=== PATIENT | male | born 1935 | race Hispanic/Latino ===

== ENCOUNTER 2016-11-07 18:52 | Inpatient (IN) | payer MEDICARE ==
[2016-11-07] MEDS ORDERED: Sodium Chloride 0.9% 1,000 ML IV STA (19:37)
--- NOTE | 2016-11-07 19:40 | ED PDOC ---
Arrival/HPI - General Chief Complaint: Medical Clearance Time Seen by Provider: 11/07/16 19:37 Historian: Patient - History of Present Illness Narrative History of Present Illness (Text): 11/07/16 19:37 81 year old male sent to the emergency department by PMD for bloody stool, lightheadedness, and paleness for the past 2 days. Denies chest pain, shortness of breath, or dyspnea on exertion. Time/Duration: < week Symptom Onset: Gradual Symptom Course: Unchanged Associated Symptoms (Text): None Past Medical History - Provider Review Nursing Documentation Reviewed: Yes - Infectious Disease Hx of Infectious Diseases: None, C.diff, MRSA, ESL, VRE - Tetanus Immunization Tetanus Immunization: Unknown - Cardiac Hx Cardiac Disorders: Yes Hx Hypertension: Yes Hx Pacemaker: No Other/Comment: R BUNDLE BRANCH BLOCK - Pulmonary Hx Respiratory Disorders: Yes Hx Pneumonia: Yes - Neurological Hx Paralysis: No - HEENT Hx HEENT Disorder: No - Renal Hx Renal Disorder: No - Endocrine/Metabolic Hx Endocrine Disorders: Yes Hx Adrenal Cancer: No Hx Diabetes Insipidus: No Hx Diabetes Mellitus Type 1: No Hx Diabetes Mellitus Type 2: Yes Hx Hyperthyroidism: No Hx Hypothyroidism: No Hx Systemic Lupus Erythematosus: No - Hematological/Oncological Hx Blood Disorders: No Hx Blood Transfusions: No Hx Blood Transfusion Reaction: No - Integumentary Hx Dermatological Disorder: No - Musculoskeletal/Rheumatological Hx Musculoskeletal Disorders: No - Gastrointestinal Hx Gastrointestinal Disorders: Yes Hx Colostomy: No Hx Crohn's Disease: No Hx Diverticulitis: No Hx Gall Bladder Disease: No Hx Gastroesophageal Reflux: Yes Hx Ileostomy: No Hx Liver Failure: No Hx Pancreatitis: No HX Swallowing Problems: No - Genitourinary/Gynecological Hx Genitourinary Disorders: Yes Other/Comment: proteinuria - Psychiatric Hx Psychophysiologic Disorder: No Hx Emotional Abuse: No Hx Physical Abuse: No Hx Substance Use: No - Surgical History Hx Cardiac Catheterization: No Hx Coronary Stent: No - Anesthesia Hx Anesthesia: No Hx Anesthesia Reactions: (NEVER HAD) - Suicidal Assessment Feels Threatened In Home Enviroment: No Family/Social History - Physician Review Nursing Documentation Reviewed: Yes Family/Social History: Unknown Family HX Smoking Status: Heavy Smoker > 10 Cigarettes Daily Hx Alcohol Use: Yes (LIGHT BEER) Hx Substance Use: No Allergies/Home Meds Allergies/Adverse Reactions: Allergies No Known Allergies Allergy (Verified 11/07/16 19:00) Home Medications: Home Meds Medication Instructions Recorded Confirmed Aspirin [Ecotrin] 81 mg PO DAILY 11/07/16 11/07/16 Atenolol [Tenormin] 50 mg PO DAILY 11/07/16 11/07/16 GlipiZIDE [Glucotrol] 10 g PO BID 11/07/16 11/07/16 MetFORMIN [glucoPHAGE] 1,000 mg PO BID 11/07/16 11/07/16 Ranitidine HCl [Acid Staff Scientist] 150 mg PO DAILY 11/07/16 11/07/16 Simvastatin [Simvastatin] 20 mg PO HS 11/07/16 11/07/16 amLODIPine [Norvasc] 10 mg PO DAILY 11/07/16 11/07/16 Review of Systems - Physician Review All systems were reviewed & negative as marked: Yes Physical Exam - Physical Exam Narrative Physical Exam (Text): - Review of Systems Constitutional: Normal. absent: Fatigue, Weight Change, Fevers Eyes: Normal ENT: Normal Respiratory: Normal absent: SOB, KIRBY, Cough, Sputum Cardiovascular: Normal absent: Chest pain, Palpitations, Syncope Gastrointestinal: Bloody stool absent: Abdominal pain, Diarrhea, Nausea, Vomiting Genitourinary: Normal. absent: Dysuria, Frequency, Hematuria Musculoskeletal: Normal. absent: Arthralgias, Back Pain, Neck Pain Skin: Pale Neurological: Lightheadedness absent: Focal Weakness Endocrine: Normal Hemo/Lymphatic: Normal Psychiatric: Normal - Physical exam Patient appears age appropriate, speaking full sentences without difficulty - Systems Exam Head: Present: Atraumatic, Normocephalic Pupils: Present: PERRL Extraocular Muscles: Present: EOMI Conjunctiva: Present: Normal Mouth: Present: Moist Mucous Membranes Neck: Present: Normal Range of Motion. No: MIDLINE TENDERNESS, Paraspinal Tenderness Respiratory/Chest: Present: Clear to Auscultation, Good Air Exchange. No: Respiratory Distress, Accessory Muscle Use, Tachypneic Cardiovascular: Present: Regular Rate and Rhythm, Normal S1, S2, Peripheral Pulses Present. No: Murmurs Abdomen: Present: Normal Bowel Sounds, No: Tenderness, Peritoneal Signs, Rebound, Guarding, Distention Back: Present: Normal Inspection. No: Midline Tenderness, Paraspinal Tenderness Rectal: Guaiac positive stool, No external hemorrhoids. Chaperoned by Reilly, ED scribe Upper Extremity: Present: Normal Inspection. No: Cyanosis, Edema Lower Extremity: Present: Normal Inspection. No: Edema Neurological: Present: GCS=15, Speech Normal, cranial nerves II through XII fully intact with no cerebellar abnormality, neuro-sensory fully intact. No focal neurological deficits. Skin: Present: Warm, Dry, No: Rashes Lymphatic: Present: OX3, NI, NC Psychiatric: Present: Alert, Oriented x 3, Normal Insight, Normal Concentration Vital Signs Reviewed: Yes Vital Signs Temp Pulse Resp BP Pulse Ox 11/07/16 19:03 98.0 F 55 L 19 130/78 97 Temperature: Afebrile Blood Pressure: Normal Pulse: Bradycardic Respiratory Rate: Normal Appearance: Positive for: Non-Toxic, Comfortable Pain Distress: None Mental Status: Positive for: Alert and Oriented X 3 Medical Decision Making ED Course and Treatment: Impression: 81 year old male sent to the emergency department by PMD for bloody stool, lightheadedness, and paleness for the past 2 days. On physical exam, patient has guaiac positive stool. Plan: -- EKG, Chest X-ray -- Protonix -- IV fluids -- Labs -- Reassess and disposition Progress Notes: 11/07/16 21:25 Hb 9.9 pt hemodynamically stable pt and family agree with admission into the hospital dw Dr. Calzada, aware of and agrees with plan EKG shows sinus bradycardia, 50 bpm, atrial flutter. Interpreted by me. Chest xray interpreted by ED physician shows no pneumothorax, cardiomegaly, no infiltrates - Lab Interpretations Lab Results: 11/07/16 19:44 11/07/16 19:44 Lab Results 11/07/16 20:09: Blood Type Confirm O NEGATIVE 11/07/16 19:44: TIBC 311 11/07/16 19:44: Sodium 136, Potassium 4.4, Chloride 104, Carbon Dioxide 21, Anion Gap 15, BUN 25 H, Creatinine 1.2, Est GFR ( Amer) > 60, Est GFR ( Non-Af Amer) 58, Random Glucose 140 H, Calcium 9.7, Ferritin Pending, Total Bilirubin 0.5, AST 22, ALT 29, Alkaline Phosphatase 75, Lactate Dehydrogenase 315 L, Total Creatine Kinase 78, Troponin I < 0.01, Total Protein 6.3, Albumin 3.5, Globulin 2.7, Albumin/Globulin Ratio 1.3 11/07/16 19:44: PT 11.4, INR 1.06, APTT 25.7 11/07/16 19:44: WBC 10.8, RBC 3.05 L, Hgb 9.9 L, Hct 29.7 L, MCV 97.4, MCH 32.5 , MCHC 33.3, RDW 16.6 H, Plt Count 216, MPV 10.6, Gran % 58.1, Lymph % (Auto) 28.7, [place] % (Auto) 7.8 H, Eos % (Auto) 4.9, Baso % (Auto) 0.5, Gran # 6.30, Lymph # 3.1, [place] # 0.8 H, Eos # 0.5, Baso # 0.05 11/07/16 19:44: Blood Type O NEGATIVE, Antibody Screen Negative, BBK History Checked No verified bt - RAD Interpretation Radiology Orders: 11/07/16 19:38 CHEST PORTABLE [RAD] Stat - Medication Orders Current Medication Orders: Discontinued Medications Sodium Chloride (Sodium Chloride 0.9%) 1,000 mls @ 1,000 mls/hr IV .Q1H STA Stop: 11/07/16 20:36 Last Admin: 11/07/16 19:53 Dose: 1,000 mls/hr Pantoprazole Sodium (Protonix Inj) 40 mg IVP STAT STA Stop: 11/07/16 19:38 Last Admin: 11/07/16 19:53 Dose: 40 mg - [place] Statement The provider has reviewed the documentation as recorded by the Montana Rodriguez Provider Scribe Attestation: All medical record entries made by the [place] were at my direction and personally dictated by me. I have reviewed the chart and agree that the record accurately reflects my personal performance of the history, physical exam, medical decision making, and the department course for this patient. I have also personally directed, reviewed, and agree with the discharge instructions and disposition. Disposition/Present on Arrival - Present on Arrival Any Indicators Present on Arrival: No History of DVT/PE: No History of Uncontrolled Diabetes: Yes Urinary Catheter: No History of Decub. Ulcer: No History Surgical Site Infection Following: None - Disposition Have Diagnosis and Disposition been Completed?: Yes Diagnosis: Rectal bleeding Disposition: HOSPITALIZED Disposition Time: 21:27 Patient Plan: Admission Patient Problems: Current Active Problems Problem Status Onset Rectal bleeding Acute Condition: FAIR Referrals: Andrew Foster MD [Primary Care Provider] - Follow up with primary
[2016-11-07 19:50] LABS: ADD MANUAL DIFF? NO
[2016-11-07 20:02] LABS: BASO # 0.05 K/mm3 (0.0-2.0); BASO % 0.5 % (0.0-3.0); EOS # 0.5 (0.0-0.7); EOS % 4.9 % (1.5-5.0); GRAN % 58.1 % (50.0-68.0); HEMATOCRIT 29.7 % (42.0-52.0); LYMPH # 3.1 (1.2-3.4); LYMPH % 28.7 % (22.0-35.0); MEAN CELL VOLUME 97.4 fL (80.0-105.0); MEAN CORPUSCULAR HEMOGLOBIN 32.5 pg (25.0-35.0); MEAN CORPUSCULAR HGB CONC 33.3 g/dl (31.0-37.0); MEAN PLATELET VOLUME 10.6 fl (7.0-11.0); MONO # 0.8 (0.1-0.6); MONO % 7.8 % (1.0-6.0); PLATELET COUNT 216 10^3/uL (120.0-450.0); RED CELL DISTRIBUTION WIDTH 16.6 % (11.5-14.5); WHITE BLOOD COUNT 10.8 10^3/ul (4.5-11.0)
[2016-11-07 20:07] LABS: ALB/GLOB RATIO 1.3 (1.1-1.8); ALKALINE PHOSPHATASE 75 U/L (38-133); ALT/SGPT 29 U/L (7-56); AST/SGOT 22 U/L (15-59); BILIRUBIN,TOTAL 0.5 mg/dL (0.2-1.3); BLOOD UREA NITROGEN 25 mg/dL (7-21); CALCIUM 9.7 mg/dL (8.4-10.5); CARBON DIOXIDE 21 mmol/L (21-33); CHLORIDE 104 mmol/L (98-107); GFR AFRICAN-AMERICAN > 60; GLUCOSE,RANDOM 140 mg/dL (70-110); INR 1.06 (0.93-1.08); PARTIAL THROMBOPLASTIN TIME 25.7 Seconds (23.7-30.8); POTASSIUM 4.4 mmol/L (3.6-5.0); SODIUM 136 mmol/L (132-148); TOTAL PROTEIN 6.3 g/dL (5.8-8.3)
[2016-11-07 20:28] LABS: TROPONIN I < 0.01 ng/mL
--- NOTE | 2016-11-08 00:24 | CP.PCM.PN ---
Subjective - Date & Time of Evaluation Date of Evaluation: 11/08/16 Time of Evaluation: 00:24 - Subjective Subjective: S:Nurse Aron calls and tells that patient's rhythm was sinus bradycardia in the ER, it is atrial fibrillation on monitor now.Rate 67/min going to 41. He was seen at bedside.Has no complaints now .Denies chest pain, sob, nausea , sweating, palpitations. Denies ever having irregular heart rhythm. ROS: Neg except as mentioned above. Medical record was reviewed. O: Last Vital Signs 3 Temp 98.0 F 11/07/16 19:03 Pulse 76 11/07/16 21:43 Resp 18 11/07/16 21:43 BP 138/85 11/07/16 21:43 Pulse Ox 97 11/07/16 21:43 Awake, alert, not in distress. Monitor:Atrial fibrillation rate 67/min. LUNGS:Normal breathing pattern. NEURO: Speech normal. A:Atrial fibrillation-New onset? P:Observation. EKG. TSH. Cardiology consultation at discretion of primary physician. Objective - Vital Signs/Intake and Output Vital Signs (last 24 hours): Temp Pulse Resp BP Pulse Ox 98.0 F 76 18 138/85 97 11/07/16 19:03 11/07/16 21:43 11/07/16 21:43 11/07/16 21:43 11/07/16 21:43 - Medications Medications: Current Medications Amlodipine Besylate (Norvasc) 10 mg PO DAILY AISHA Atenolol (Tenormin) 50 mg PO DAILY AISHA Insulin Human Regular (Humulin R Low) 0 units SC ACHS AISHA PRN Reason: Protocol - Labs Labs: PT 11.4 Seconds (9.9-11.8) 11/07/16 19:44 INR 1.06 (0.93-1.08) 11/07/16 19:44 APTT 25.7 Seconds (23.7-30.8) 11/07/16 19:44
[2016-11-08 06:25] LABS: ADD MANUAL DIFF? NO
[2016-11-08 06:30] LABS: BASO # 0.03 K/mm3 (0.0-2.0); BASO % 0.4 % (0.0-3.0); EOS # 0.4 (0.0-0.7); EOS % 5.5 % (1.5-5.0); GRAN # 4.34 (1.4-6.5); GRAN % 56.9 % (50.0-68.0); HEMATOCRIT 26.1 % (42.0-52.0); LYMPH # 2.2 (1.2-3.4); LYMPH % 29.2 % (22.0-35.0); MEAN CELL VOLUME 95.3 fL (80.0-105.0); MEAN CORPUSCULAR HGB CONC 32.6 g/dl (31.0-37.0); MEAN PLATELET VOLUME 10.6 fl (7.0-11.0); MONO # 0.6 (0.1-0.6); PLATELET COUNT 190 10^3/uL (120.0-450.0); RED CELL DISTRIBUTION WIDTH 16.5 % (11.5-14.5); WHITE BLOOD COUNT 7.6 10^3/ul (4.5-11.0)
[2016-11-08 06:52] LABS: ALB/GLOB RATIO 1.2 (1.1-1.8); ALKALINE PHOSPHATASE 66 U/L (38-133); ALT/SGPT 33 U/L (7-56); AST/SGOT 17 U/L (15-59); BILIRUBIN,TOTAL 0.4 mg/dL (0.2-1.3); BLOOD UREA NITROGEN 19 mg/dL (7-21); CALCIUM 9.2 mg/dL (8.4-10.5); CARBON DIOXIDE 24 mmol/L (21-33); CHLORIDE 108 mmol/L (98-107); GFR AFRICAN-AMERICAN > 60; GLUCOSE,RANDOM 134 mg/dL (70-110); MAGNESIUM 1.9 mg/dL (1.7-2.2); POTASSIUM 4.7 mmol/L (3.6-5.0); SODIUM 137 mmol/L (132-148); TOTAL PROTEIN 5.4 g/dL (5.8-8.3)
[2016-11-08 06:58] LABS: IRON 36 ug/dL (45-180)
[2016-11-08 07:00] LABS: TROPONIN I < 0.01 ng/mL
[2016-11-08] MEDS: Insulin Reg-LOW-Coverage SC SCH ×4 (08:11→21:41)
--- NOTE | 2016-11-08 09:50 | RAD ---
HISTORY: cough COMPARISON: 09/04/2015 FINDINGS: LUNGS: No active pulmonary disease. PLEURA: No significant pleural effusion identified, no pneumothorax apparent. CARDIOVASCULAR: Mild cardiomegaly OSSEOUS STRUCTURES: No significant abnormalities. VISUALIZED UPPER ABDOMEN: Normal. OTHER FINDINGS: None. IMPRESSION: No active disease.
--- NOTE | 2016-11-08 10:25 | HP ---
CHIEF COMPLAINT AND HISTORY OF PRESENT ILLNESS: This is an 81-year-old male who is coming into the [facility] because of bloody stools and lightheadedness. The patient was found to have heme positive st ools in the Emergency Room and was admitted for further evaluation. The patient denies any abdominal pain, no back pain, no dysuria or frequency, no nocturia, no weakness in the arms or the legs. No d ysarthria or dysphagia. All other review of symptoms are within normal limits except as mentioned. He also had atrial fibrillation on telemetry overnight. REVIEW OF SYSTEMS: All other review of symptoms are within normal limits. ALLERGIES: No known drug allergies. HOME MEDICATIONS: Aspirin, atenolol, glipizide, metformin, ranitidine, simvastatin, amlodipine. SOCIAL HISTORY: The patient is a smoker. He smokes more than 10 cigarettes a day. Drinks alcohol s ocially. He denies any substance abuse. He worked as a teacher at [employer]. FAMILY HISTORY: Noncontributory. PAST MEDICAL HISTORY: Diabetes type 2, hypertension, dyslipidemia. PHYSICAL EXAMINATION: VITAL SIGNS: Temperature is 97.7, pulse of 54, blood pressure 122/59, respirations 20, O2 saturation 96%. Height is 6 feet. GENERAL: Patient lying in bed, flat, and in no apparent distress. HEAD AND NECK EXAM: Atraumatic, normocephalic. Conjunctivae are pink. Throat clear and mouth with moist mucosa. Oropharynx benign. EYES: Extraocular movements are intact. PERRLA. NECK: Supple. No JVD, thyromegaly, or adenopathy. No bruits. HEART: S1 and S2 regular rate and rhythm. No murmurs, rubs, or gallops. LUNGS: Clear to auscultation bilaterally. No wheezing rales or rhonchi appreciated. No retractions on exam. ABDOMEN: Soft, nontender, nondistended. Bowel sounds are positive in all quadrants. No rebound. No hepatosplenomegaly. EXTREMITIES: No cyanosis, clubbing, or edema. NEURO: No facial asymmetry, tongue is midline, no uvula deviation. Power is 5/5 in upper extremity and 5/5 in lower extremity. Sensation is normal in upper extremity and lower extremity. PSYCH: Awake, alert, oriented x3. No anxiety or depression symptoms. Good insight. Normal affect . : No CVA tenderness VASCULAR: 2+ pulses in carotid and pedal pulses. SKIN: No erythema or abnormal nodules noted. SPINE: Normal curvature. LYMPHADENOPATHY: No anterior cervical or posterior cervical adenopathy. No inguinal adenopathy. LABORATORY DATA: White count of 7.6, hemoglobin is 8.5, yesterday was 9.9, platelet count is 190. I NR is 1.06. Sodium is 137, potassium 4.7. Iron saturation is 13%. Chest x-ray done shows no infiltrates. An EKG done on admission shows a heart rate of 49, there is atrial flutter. ASSESSMENT: 1. Right gastrointestinal bleed. 2. Atrial flutter. 3. Diabetes type 2. 4. Hypertension. 5. Dyslipidemia. PLAN: The patient has a hemoglobin that is decreasing. The patient's baseline hemoglobin from about a year ago was 15 and is 9.9 and again is 8.5 this morning. I will get GI evaluation. He is on aml odipine for his hypertension and this will be continued. He is on atenolol. This will be continued as well. I will hold his aspirin. He is on metformin and glipizide. That will be on hold. I will place him on insulin sliding scale. The patient will be placed on a liquid diet. We will repeat his CBC tomorrow morning. He will also be seen by Dr. Coronado and I spoke to him regarding the atrial fl utter and fib. He cannot be placed on anticoagulation at this point because of his bleeding. Brian Calzada MD cc: [id number] TT: 11/08/2016 10:24:33 tn
--- NOTE | 2016-11-08 11:20 | CON ---
DATE: 11/08/2016 INDICATIONS: Atrial fibrillation, new onset. HISTORY OF PRESENT ILLNESS: This is an 81-year-old man who presented to the Emergency Room with bright red blood per rectum, lightheadedness and not feeling well. EKG showed atrial fibrillation. He was admitted to telemetry. Cardiac consultation and GI consultations were ordered. This morning, he is resting comfortably in bed. Monitor shows atrial fibrillation with a moderate ventricular response. He denies chest pain, shortness of breath, orthopnea, PND , syncope, presyncope, lightheadedness, dizziness, vertigo, palpitations, edema , claudication, fever, chills, cough, sputum production, hemoptysis, abdominal pain, nausea, vomiting, diarrhea, constipation. PAST MEDICAL HISTORY: Notable for diabetes, hypertension, hyperlipidemia, pneumonia. He is anemic. An EKG in August shows sinus rhythm. The time of onset for the atrial fibrillation is not clear. There is no history of rheumatic fever, myocardial infarction, angina, congestive heart failure, arrhythmia, stroke, TIA or gout. MEDICATIONS: At the time of admission include aspirin, atenolol, glipizide, metformin, Zantac, simvastatin, Norvasc. ALLERGIES: There are no known medication allergies. SOCIAL HISTORY: He lives at home. He is ambulatory. He does not smoke cigarettes. He does not drink alcohol. REVIEW OF SYSTEMS: A 10-point review of systems is unremarkable. He has noted rectal bleeding in the past due to hemorrhoids, but this episode was more severe and different and not associated with hemorrhoidal pain. PHYSICAL EXAMINATION: GENERAL: Well-developed male sitting on bed on telemetry in no acute distress. VITAL SIGNS: Atrial fibrillation, ventricular rate 54-76 beats per minute. He is afebrile. Blood pressure 163/54, respirations 18-20, O2 sat 97%. HEENT: Reveals no neck vein distention, thyromegaly, or carotid bruits. Mucous membranes are moist. Conjunctivae pale. NECK: Supple. LUNGS: Lung montalvo clear. HEART: Revealed an irregular rhythm, normal first and second heart sounds. PMI not palpable. ABDOMEN: Soft, bowel sounds present. No mass, organomegaly, tenderness, rebound, guarding, CVA tenderness. No palpable abdominal aortic aneurysm. EXTREMITIES: Revealed no cyanosis, clubbing, or edema. NEUROLOGIC: He was awake, alert and oriented. SKIN: Warm and dry. No rash or cellulitis. PSYCHIATRIC: Normal as to mood and affect. LABORATORY AND IMAGING: EKG reveals atrial flutter. Chest x-ray is a portable study. It is not yet interpreted. I do not see evidence of congestive heart failure, infiltrate or effusion. Hemoglobin initially 9.9, repeat 8.5. Hematocrit initially 27.7, repeat 26.1, white count normal, platelet count normal. PT, INR, PTT normal. Electrolytes, BUN, creatinine, blood sugar unremarkable. LFTs unremarkable. CK 78, troponin is negative x 2. TSH is normal. Iron level is low, percent saturation is low. IMPRESSION: The patient is an 81-year-old man with rectal bleeding, was found to have atrial fibrillation which is new compared to an EKG in August. He does not have cardiac symptoms including chest pain, shortness of breath and palpitations. Troponins are negative. EKG is unremarkable except for the atrial fibrillation without evidence of ischemia. At this time, he is on telemetry. I would continue his atenolol, amlodipine, and Lipitor as a substitute for simvastatin. Aspirin is being held. Anticoagulation will be considered at a later date once the cause for his GI bleeding is ascertained. He is undergoing a GI evaluation by Dr. De Jesus. H and H should be monitored. We will check stool for occult blood. I will order an echocardiogram on an outpatient basis. We will arrange a nuclear stress test as well. I will follow along with you. I will make additional recommendations based on his clinical course. Fantasma Coronado MD cc: [id number] TT: 11/08/2016 11:19:44 Confirmation # [id number] Dictation # [id number] jn GORAN
[2016-11-08] MEDS: Pantoprazole 40 mg EC Tab PO SCH (11:44)
--- NOTE | 2016-11-08 14:48 | CARD ---
APPROVED REPORT EXAM: Two-dimensional and M-mode echocardiogram with Doppler and color Doppler. INDICATION Atrial Fibrillation 2D DIMENSIONS Left Atrium (2D)3.8 (1.6-4.0cm)IVSd1.1 (0.7-1.1cm) LVDd5.3 (3.9-5.9cm)PWd1.3 (0.7-1.1cm) LVDs3.6 (2.5-4.0cm)FS (%) 32.4 % LVEF (%)60.4 (>50%) M-Mode DIMENSIONS Aortic Root3.00 (2.2-3.7cm)Aortic Cusp Exc.1.30 (1.5-2.0cm) Aortic Valve AoV Peak [id number]/Roxy Peak GR.10mmHg Mitral Valve E/A ratio0.0 TDI E/Lateral E'0.0E/Medial E'0.0 Tricuspid Valve TR Peak [id number] Peak Gr.22mmHg [id number] LEFT VENTRICLE The left ventricle is normal size. There is mild concentric left ventricular hypertrophy. The left ventricular function is normal. The left ventricular ejection fraction is within the normal range. There is normal LV segmental wall motion. RIGHT VENTRICLE The right ventricle is normal size. The right ventricular systolic function is normal. ATRIA The left atrium size is normal. The right atrium size is normal. The interatrial septum is intact with no evidence for an atrial septal defect. AORTIC VALVE The aortic valve is normal in structure. No aortic regurgitation is present. There is no aortic valvular stenosis. MITRAL VALVE The mitral valve is normal in structure. There is no mitral valve regurgitation noted. TRICUSPID VALVE The tricuspid valve is normal in structure. There is no tricuspid valve regurgitation noted. GREAT VESSELS The aortic root is normal in size. The IVC is normal in size and collapses >50% with inspiration. PERICARDIAL EFFUSION There is no pleural effusion. There is no pericardial effusion. <Conclusion> Normal chamber size. Normal LV systolic function. Mild concentric LVH. No valvular abnormalities noted.
[2016-11-08 15:24] LABS: HEMATOCRIT 27.1 % (42.0-52.0)
--- NOTE | 2016-11-08 15:37 | CON ---
DATE: 11/08/2016 Seen and examined at the bedside earlier today. The chart was reviewed. REQUEST FOR CONSULT: GI bleed. HISTORY OF PRESENT ILLNESS: This is an 81-year-old male with a past medical history of diabetes, hyp ertension, and dyslipidemia complaining of bloody stools and lightheadedness and came to the Emergenc y Room for further evaluation. Two days ago, the patient states that he had an episode of diarrhea t hat was bloody and had another episode of bloody stool another day. He did complain of feeling light headedness. Denies any nausea, vomiting, no abdominal pain. Denies any shortness of breath or chest pain. No complaints of any weight loss or symptoms of dyspepsia. He never had an endoscopy or colo noscopy. While he was admitted, he was found to be in atrial fibrillation on telemetry. Denies any chest pain. The patient denies any use of NSAIDs. He only takes a baby aspirin daily. PAST MEDICAL HISTORY: As stated above, hypertension, diabetes mellitus type 2 and dyslipidemia. PAST SURGICAL HISTORY: The patient denies any cardiac interventions or any abdominal surgery. FAMILY HISTORY: Noncontributory at this time. SOCIAL HISTORY: The patient was a former smoker. He said he quit about 10-15 years ago and patient reports that he drinks 4 cans of beer daily. MEDICATIONS: He is on aspirin, metformin, glipizide, atenolol, ranitidine, simvastatin and amlodipin e. ALLERGIES: No known drug allergies. REVIEW OF SYSTEMS: Systems were reviewed with positive findings, see HPI. VITAL SIGNS: Temperature is 97.7, blood pressure 132/76, pulse 78, respirations 20, 96 on room air. LABORATORY DATA: WBC 7.6, H and H is 8.5 and 26.1, platelets is 190. PT on admission is 11.4, INR i s 1.06, PTT is 25.7. Sodium is 137, K 4.7, BUN 19, creatinine is 1.2, magnesium is 1.9. Iron studie s done, iron is 36, TIBC is 278, percent saturation is 13, transferrin level is okay at 234.11. DIAGNOSTICS: He had a chest x-ray that was negative for pulmonary disease. No pleural effusion, no pneumothorax, mild cardiomegaly. PHYSICAL EXAMINATION: HEENT: Sclerae anicteric. NECK: Supple. CARDIAC: S1, S2. LUNGS: Decreased breath sounds at the bases, but good air entry. No rales or wheeze. ABDOMEN: With bowel sounds, soft. No tenderness. No rebound, guarding, or organomegaly. EXTREMITIES: Positive pedal pulses, no edema. NEUROLOGIC: The patient is awake, alert, and oriented x 3. RECTAL: Negative for mass. No blood is noted. ASSESSMENT: This is an 81-year-old male with a past medical history of diabetes type 2, hypertension , and dyslipidemia who came in with complaints of bleeding per rectum. Rule out any angiodysplasia, malignancy. The patient was found to be in atrial fibrillation. Other comorbidities as stated above . PLAN: The patient also had iron studies done and it looks like he is iron deficient. Our plan is currently his aspirin is on hold. I discussed with the patient that he would benefit from endoscopic evaluati on, EGD, colonoscopy in view of bleeding. The patient is also being evaluated by cardiology for atri al fibrillation/flutter. He is having cardiac workup. Continue to monitor his H and H. We will cont inue Protonix 40 daily. The patient can stay on clear liquid diet. Thank you for this consult and for allowing us to participate in your patient's care. We will make f elyse recommendations based upon patient's clinical course. The patient was seen and case discussed with Dr. De Jesus. We will also check patient's B12 level. Yi VALDES cc: [id number] TT: 11/08/2016 15:37:47 Confirmation # [id number] Dictation # [id number] pete
[2016-11-09] MEDS: Pantoprazole 40 mg EC Tab PO SCH (05:15)
[2016-11-09 07:53] LABS: HEMATOCRIT 26.4 % (42.0-52.0); MEAN CORPUSCULAR HGB CONC 33.3 g/dl (31.0-37.0); MEAN PLATELET VOLUME 10.7 fl (7.0-11.0); RED CELL DISTRIBUTION WIDTH 16.2 % (11.5-14.5)
[2016-11-09 08:07] LABS: ALB/GLOB RATIO 1.2 (1.1-1.8); ALKALINE PHOSPHATASE 69 U/L (38-133); ALT/SGPT 34 U/L (7-56); AST/SGOT 24 U/L (15-59); BILIRUBIN,TOTAL 0.6 mg/dL (0.2-1.3); BLOOD UREA NITROGEN 13 mg/dL (7-21); CALCIUM 9.5 mg/dL (8.4-10.5); CARBON DIOXIDE 26 mmol/L (21-33); CHLORIDE 107 mmol/L (95-110); GFR AFRICAN-AMERICAN > 60; GLUCOSE,RANDOM 171 mg/dL (70-110); SODIUM 138 mmol/L (132-148); TOTAL PROTEIN 5.6 g/dL (5.8-8.3)
[2016-11-09] MEDS: Insulin Reg-LOW-Coverage SC SCH ×4 (08:39→22:00)
[2016-11-09] MEDS: Sodium Chloride 0.45% 1,000 ML IV SCH (10:55)
[2016-11-09 11:22] LABS: ADD MANUAL DIFF? NO
[2016-11-09 11:28] LABS: CHOLESTEROL 115 mg/dL (130-200)
[2016-11-09 11:31] LABS: BASO # 0.04 K/mm3 (0.0-2.0); BASO % 0.5 % (0.0-3.0); EOS # 0.3 (0.0-0.7); EOS % 3.1 % (1.5-5.0); GRAN # 5.15 (1.4-6.5); GRAN % 60.8 % (50.0-68.0); HEMATOCRIT 24.9 % (42.0-52.0); LYMPH # 2.4 (1.2-3.4); LYMPH % 28.7 % (22.0-35.0); MEAN CELL VOLUME 96.1 fL (80.0-105.0); MEAN CORPUSCULAR HEMOGLOBIN 32.4 pg (25.0-35.0); MEAN CORPUSCULAR HGB CONC 33.7 g/dl (31.0-37.0); MEAN PLATELET VOLUME 10.2 fl (7.0-11.0); MONO # 0.6 (0.1-0.6); MONO % 6.9 % (1.0-6.0); PLATELET COUNT 209 10^3/uL (120.0-450.0); RED CELL DISTRIBUTION WIDTH 16.3 % (11.5-14.5); WHITE BLOOD COUNT 8.5 10^3/ul (4.5-11.0)
--- NOTE | 2016-11-09 12:23 | PN ---
DATE: 11/09/2016 SUBJECTIVE: The patient is an 81-year-old, seen and examined, lying in bed, reading a newspaper. He did have bloody bowel movement this morning, but not prachi blood. Denies any abdominal pain. No hi story of nausea. No chest pain, no palpitation. PHYSICAL EXAMINATION: VITAL SIGNS: The patient is afebrile, pulse 69, respirations 20, blood pressure 160/69. LUNGS: Bilateral fair airflow, no rhonchi or crackle. HEART: S1, S2 audible. ABDOMEN: Soft, nontender, no rebound, no guarding. NEUROLOGIC: The patient is awake and alert, able to communicate, moves all extremities. LABORATORY EXAMINATION: WBC is 9.0, hemoglobin 8.8, hematocrit 26.4, platelet of 214. Chemistry: S odium 138, potassium 5.0, chloride 107, CO2 26, BUN 13, creatinine 1.0, blood sugar of 229. ASSESSMENT: 1. Lower gastrointestinal bleed. Holding his hemoglobin. 2. History of hypertension. 3. Anemia. 4. Noninsulin dependent diabetes. 5. Hyperlipidemia. PLAN: At this point, the patient is on clear liquids. Will start him on low dose IV fluids. Contin ue him on liquid diet. He is on Protonix. Monitor his blood sugar. Plan for colonoscopy on Friday if he does not start bleeding profusely. Shweta Merino MD cc: [phone] TT: 11/09/2016 12:22:37 Confirmation # [id number] Dictation # [id number] nena
--- NOTE | 2016-11-09 14:42 | PN ---
DATE: 11/09/2016 SUBJECTIVE: The patient is seen sitting in bed on telemetry. He is currently comfortable. He denies any dyspnea. He remains in atrial fibrillation. He continues to have some blood in his stool and diarrheal stools. CURRENT MEDICATIONS: Include insulin coverage, Norvasc 10 mg daily, Protonix 40 mg daily and Tenormin 50 mg daily. OBJECTIVE: GENERAL: He is an elderly man who appears comfortable at rest. VITAL SIGNS: Blood pressure is 160/70 with pulse of 70 in atrial fibrillation, respirations are 16. He is afebrile. HEENT: No JVD. CHEST: A few scattered rhonchi. HEART: PMI displaced laterally with an irregularly irregular rhythm. ABDOMEN: Soft, nontender, normoactive bowel sounds. EXTREMITIES: No edema. DIAGNOSTIC DATA: Potassium 5.0, BUN and creatinine are 13 and 1.0. Hemoglobin and hematocrit 8.8 and 26.4 with prior result being 9.1 and 27.1. White count 9.0, platelet count 214,000. IMPRESSION: 1. Recently diagnosed atrial fibrillation with controlled rate. Obviously not a candidate for anticoagulation given his active gastrointestinal bleeding. 2. Gastrointestinal bleed. Workup in progress. 3. History of hypertension. On diagnostic study, echocardiogram revealed normal left ventricular size and function with mild concentric left ventricular hypertrophy, no significant valvular abnormalities were seen. RECOMMENDATIONS: Rate control therapy at the present time is advisable. Once his GI bleeding issues have been addressed, consideration as to suitability and timing of anticoagulation can be discussed; however, obviously this is contraindicated at the present time. We will continue to follow and make further recommendations as appropriate. Christiano Edwards MD cc: [id number] TT: 11/09/2016 14:41:02 Confirmation # [id number] Dictation # [id number] nena ZIMMER
--- NOTE | 2016-11-09 15:53 | CARD ---
APPROVED REPORT EKG Measurement Heart [id number] <Conclusion> Atrial flutter with variable AV block Abnormal ECG
--- NOTE | 2016-11-09 16:18 | CARD ---
APPROVED REPORT EKG Measurement Heart [id number] <Conclusion> Atrial flutter with variable AV block Nonspecific ST abnormality Abnormal ECG
--- NOTE | 2016-11-09 18:34 | PN ---
DATE: 11/09/2016 SUBJECTIVE: This patient was seen and evaluated earlier. The patient's family was at bedside. The patient had another episode of bright red blood per rectum. The patient had a bleeding scan done. T he bleeding scan was reported as no active bleeding site noticed, however, there is penile uptake ___ _ suspected penile activity can obscure small active rectal bleeding. PHYSICAL EXAMINATION: VITAL SIGNS: Temperature is 97.4, pulse of 56, blood pressure 138/57, respirations 18. HEENT: Atraumatic, anicteric. NECK: Supple. HEART: S1, S2 heard. LUNGS: Bilateral air entry present. ABDOMEN: Soft. No tenderness. EXTREMITIES: No edema. LABORATORY DATA: Hemoglobin 8.8, repeat one is 8.4. BUN 13, creatinine 1.0. IMPRESSION: 1. This is an 81-year-old patient admitted with recurrent episodes of bright red blood per rectum. Recent bleeding scan was nondiagnostic. There has been penile activity, possible penile activity ove rshadowing the ____, a small rectal bleeding was also noted. 2. Atrial fibrillation, controlled rate. Is being followed by the cardiology. In view of the activ e bleeding, no anticoagulation is considered. 3. History of hypertension. 4. History of coronary artery disease. RECOMMENDATIONS: 1. Followup of the hemoglobin and hematocrit. 2. Will continue to keep the patient on clear liquid diet. 3. Will follow up the heme, transfuse 2 units of packed RBC today. 4. We will consider preparing the patient for colonoscopy and endoscopy. We will start the preparat ion with Donis tomorrow for a colonoscopy on Friday. Thank you very much for allowing us to participate in the care of the patient. Marilu De Jesus MD cc: [phone] TT: 11/09/2016 18:33:37 Confirmation # [id number] Dictation # [id number] jutsice
[2016-11-09 19:58] LABS: ADD MANUAL DIFF? NO
[2016-11-09 20:04] LABS: BASO # 0.03 K/mm3 (0.0-2.0); BASO % 0.3 % (0.0-3.0); EOS # 0.4 (0.0-0.7); EOS % 4.4 % (1.5-5.0); GRAN # 5.06 (1.4-6.5); GRAN % 53.2 % (50.0-68.0); LYMPH # 3.2 (1.2-3.4); MEAN CELL VOLUME 95.4 fL (80.0-105.0); MEAN CORPUSCULAR HEMOGLOBIN 32.1 pg (25.0-35.0); MEAN CORPUSCULAR HGB CONC 33.6 g/dl (31.0-37.0); MEAN PLATELET VOLUME 10.2 fl (7.0-11.0); MONO # 0.8 (0.1-0.6); MONO % 8.1 % (1.0-6.0); PLATELET COUNT 205 10^3/uL (120.0-450.0); RED CELL DISTRIBUTION WIDTH 16.1 % (11.5-14.5); WHITE BLOOD COUNT 9.5 10^3/ul (4.5-11.0)
[2016-11-09 20:13] LABS: HEMATOCRIT 22.9 % (42.0-52.0)
[2016-11-10] MEDS: Sodium Chloride 0.45% 1,000 ML IV SCH (06:04)
[2016-11-10] MEDS: Pantoprazole 40 mg EC Tab PO SCH (06:07)
[2016-11-10 07:49] LABS: ADD MANUAL DIFF? NO
[2016-11-10 08:22] LABS: ALB/GLOB RATIO 1.2 (1.1-1.8); ALKALINE PHOSPHATASE 61 U/L (38-133); ALT/SGPT 38 U/L (7-56); AST/SGOT 24 U/L (15-59); BILIRUBIN,TOTAL 0.6 mg/dL (0.2-1.3); BLOOD UREA NITROGEN 11 mg/dL (7-21); CALCIUM 8.8 mg/dL (8.4-10.5); CARBON DIOXIDE 25 mmol/L (21-33); CHLORIDE 106 mmol/L (95-110); GFR AFRICAN-AMERICAN > 60; GLUCOSE,RANDOM 148 mg/dL (70-110); MAGNESIUM 1.6 mg/dL (1.7-2.2); POTASSIUM 4.6 mmol/L (3.6-5.0); SODIUM 137 mmol/L (132-148); TOTAL PROTEIN 5.3 g/dL (5.8-8.3)
[2016-11-10] MEDS: Insulin Reg-LOW-Coverage SC SCH ×4 (08:41→22:41)
[2016-11-10] MEDS ORDERED: D5W IV ONE (08:43)
[2016-11-10] MEDS ORDERED: MAGNESIUM SULFATE IV ONE (08:43)
[2016-11-10 09:21] LABS: BASO # 0.06 K/mm3 (0.0-2.0); BASO % 0.7 % (0.0-3.0); EOS # 0.6 (0.0-0.7); EOS % 6.7 % (1.5-5.0); GRAN # 4.31 (1.4-6.5); GRAN % 51.6 % (50.0-68.0); HEMATOCRIT 27.6 % (42.0-52.0); LYMPH # 2.7 (1.2-3.4); LYMPH % 32.1 % (22.0-35.0); MEAN CELL VOLUME 96.8 fL (80.0-105.0); MEAN CORPUSCULAR HEMOGLOBIN 33.7 pg (25.0-35.0); MEAN CORPUSCULAR HGB CONC 34.8 g/dl (31.0-37.0); MEAN PLATELET VOLUME 10.7 fl (7.0-11.0); MONO # 0.7 (0.1-0.6); MONO % 8.9 % (1.0-6.0); PLATELET COUNT 196 10^3/uL (120.0-450.0); RED CELL DISTRIBUTION WIDTH 17.4 % (11.5-14.5); WHITE BLOOD COUNT 8.4 10^3/ul (4.5-11.0)
--- NOTE | 2016-11-10 11:56 | PN ---
DATE: 11/10/2016 SUBJECTIVE: The patient is an 81-year-old, seen and examined, lying in bed. He states, "I'm frustra danii, don't know why I'm bleeding." He was given blood transfusion since he dropped hemoglobin. No a bdominal pain on clear liquid diet. PHYSICAL EXAMINATION: VITAL SIGNS: He is afebrile, pulse 64, respirations 17, blood pressure 139/57. LUNGS: Bilateral fair airflow, no rhonchi or crackle. HEART: S1, S2 audible. ABDOMEN: Soft, nontender, no rebound, no guarding. NEUROLOGIC: The patient is awake and alert, communicative. LABORATORY: Yesterday, his followup hemoglobin was 7.7 to 22.9. He received 2 blood transfusions an d a recent hemoglobin is 9.6 and 27.6, platelet 196. Chemistry: Blood sugar is 176. Sodium 1 37, potassium 4.6, chloride 106, CO2 25, BUN 11, creatinine 1.0, magnesium is 1.6. ASSESSMENT AND PLAN: 1. Lower gastrointestinal bleed. Bleeding scan is pending. 2. Blood loss anemia, status post blood transfusion. 3. History of hypertension. 4. Noninsulin dependent diabetes. 5. Hyperlipidemia. 6. History of coronary artery disease. PLAN: Currently, the patient is on IV fluid. For his low magnesium, he will be given 1 gram of magn esium sulfate. He is on Norvasc 10 mg daily. We will continue him on Protonix and will follow up hi s CBC and CMP. He will stay on liquid diet. He is scheduled to have colonoscopy done tomorrow. Shweta Merino MD cc: [phone] TT: 11/10/2016 11:56:15 Confirmation # [id number] Dictation # [id number] pete
[2016-11-10 13:24] LABS: ADD MANUAL DIFF? NO
[2016-11-10 13:41] LABS: BASO # 0.05 K/mm3 (0.0-2.0); BASO % 0.5 % (0.0-3.0); EOS # 0.6 (0.0-0.7); EOS % 5.3 % (1.5-5.0); GRAN # 6.98 (1.4-6.5); GRAN % 63.5 % (50.0-68.0); HEMATOCRIT 31.3 % (42.0-52.0); LYMPH # 2.7 (1.2-3.4); MEAN CELL VOLUME 95.1 fL (80.0-105.0); MEAN CORPUSCULAR HEMOGLOBIN 32.2 pg (25.0-35.0); MEAN CORPUSCULAR HGB CONC 33.9 g/dl (31.0-37.0); MONO # 0.6 (0.1-0.6); MONO % 5.7 % (1.0-6.0); PLATELET COUNT 221 10^3/uL (120.0-450.0); RED CELL DISTRIBUTION WIDTH 17.5 % (11.5-14.5)
--- NOTE | 2016-11-10 14:13 | PN ---
DATE: 11/10/2016 SUBJECTIVE: The patient is seen lying in bed on telemetry. He is comfortable. He denies any bloody diarrhea today. He has had significant bradycardia overnight and he remains in atrial fibrillation. He denies any dizziness or dyspnea. CURRENT MEDICATIONS: Include insulin coverage, Norvasc 10 mg daily, Protonix 40 mg daily, atenolol 5 0 mg daily. OBJECTIVE: GENERAL: He is an elderly man who appears comfortable at rest. VITAL SIGNS: Blood pressure is 140/60 with a pulse of 44, respirations are 14. He is afebrile. HEENT: No JVD. CHEST: A few scattered rhonchi heard. HEART: Rhythm is irregularly irregular, bradycardia. ABDOMEN: Soft, nontender, normoactive bowel sounds. EXTREMITIES: No edema. DIAGNOSTIC DATA: Potassium 4.6, BUN and creatinine 11 and 1.0. White count 8.4, hemoglobin and vincent tocrit 9.6 and 27.6 with platelet count 196,000. IMPRESSION: 1. Recently diagnosed atrial fibrillation with slow ventricular response, remains off anticoagulatio n due to recent gastrointestinal bleeding. 2. History of hypertension. 3. Gastrointestinal bleeding. Etiology to be determined. RECOMMENDATIONS: Given his slow heart rate, his atenolol dose will be reduced to 25 mg daily and wit hheld if excessive bradycardia is present. From a cardiac standpoint, he appears stable to proceed w ith any endoscopic procedures necessary to evaluate his GI bleeding. We will continue to follow and make further recommendations as appropriate. Christiano Edwards MD cc: [phone] TT: 11/10/2016 14:13:07 Confirmation # [id number] Dictation # [id number] dn
[2016-11-10] MEDS ORDERED: Peg-Electrolyte Oral Soln 4L (Golytely) PO ONE (15:44)
--- NOTE | 2016-11-10 16:13 | PN ---
DATE: 11/10/2016 SUBJECTIVE: This patient was seen and evaluated earlier today. No further episodes of bleeding per rectum. PHYSICAL EXAMINATION: VITAL SIGNS: Temperature is 97.3, pulse is 64, blood pressure 139/57. HEENT: Atraumatic, anicteric. NECK: Supple. HEART: S1, S2 heard. LUNGS: Bilateral air entry present. ABDOMEN: Soft. There is no tenderness. LABORATORY DATA: Hemoglobin is 9.6, hematocrit 27.6, WBC is 8.4, platelets 196. Chemistry is essent ially otherwise unremarkable. Magnesium is 1.6, which was supplemented. IMPRESSION: 1. This 81-year-old patient admitted with bleeding per rectum. Several episodes. Drop in hemoglobi n to 7.7. Received 2 units of packed red blood cells. 2. New onset atrial fibrillation, not on anticoagulation in view of the active bleeding. 3. Hypertension. 4. Hypokalemia, hypomagnesemia, being supplemented. RECOMMENDATIONS: 1. Followup of the hemoglobin and hematocrit. 2. The patient is on clear liquid diet. We will start the bowel prep, GoLYTELY, preparation today. The patient is scheduled for the procedure tomorrow. The patient will be scheduled for an EGD and a colonoscopy. Risks, benefits, alternatives explained. The patient is agreeable. We will continue to closely follow up his hemoglobin and hematocrit. Marilu De Jesus MD cc: [phone] TT: 11/10/2016 16:12:55 Confirmation # [id number] Dictation # [id number] nena
[2016-11-11] MEDS: Sodium Chloride 0.45% 1,000 ML IV SCH (03:24)
[2016-11-11] MEDS: Pantoprazole 40 mg EC Tab PO SCH (05:12)
--- NOTE | 2016-11-11 07:21 | PN ---
DATE: 11/11/2016 SUBJECTIVE: The patient has no complaints of any headaches or dizziness, no nausea, no vomiting. PHYSICAL EXAMINATION: VITAL SIGNS: Temperature is 97.7, pulse of 54, blood pressure 128/69, respiration is 18. GENERAL: The patient comfortable, in no acute distress. HEENT: Anicteric sclerae. Moist mucosa. NECK: No JVD or adenopathy. CARDIAC: S1/S2. No murmurs. No rubs. Regular. RESPIRATORY: Clear to auscultation bilaterally. No wheezes, rales, or rhonchi. Good air entry. ABDOMEN: Bowel sounds are positive, soft, nontender, and nondistended. EXTREMITIES: No edema. Has 1+ pulses. LABS: Hemoglobin is 10.6. The GI bleeding scan is pending. ASSESSMENT: 1. Gastrointestinal bleed. 2. Anemia secondary to blood loss. 3. Diabetes type 2. 4. Hypertension. 5. Dyslipidemia. 6. Iron deficiency anemia. 7. Atrial flutter. PLAN: The patient is going to be admitted to the hospital. The patient is being followed by cardiol ogy as well as GI. The plan is to do endoscopy as well as a colonoscopy. The patient has a stable h emoglobin. He had his atenolol decreased because of bradycardia. He did receive 2 units of packed r ed blood cells for a low hemoglobin. He is on IV fluids. He is going to be on Protonix. He is on N orvasc for his hypertension. He is n.p.o. for being scoped today. Brian Calzada MD cc: [phone] TT: 11/11/2016 07:21:10 Confirmation # [id number] Dictation # [id number] prema
[2016-11-11 08:01] LABS: ADD MANUAL DIFF? NO
--- NOTE | 2016-11-11 08:01 | CON ---
DATE: 11/08/2016 ADDENDUM This is an addendum to the GI progress report dictated by Yi Terry APN. The patient did not have any further episodes of bleeding since admission. No complaints of any abdominal pain. The patient did have episodes of bright red blood per rectum prior to admission. He is tolerating the diet. Th e patient did have regular solid food at breakfast this morning. After that, on a clear liquid diet. No complaints of any abdominal pain. The patient also was found to have atrial fibrillation which is new. In view of this, the aspirin has been held and anticoagulation will be considered after GI e valuation. It is reasonable to consider EGD and a colonoscopy to further evaluate. Continue to clos sheryl follow up the hemoglobin and hematocrit. Thank you very much for allowing us to participate in the care of the patient. Marilu De Jesus MD cc: [phone] TT: 11/09/2016 09:23:22 Confirmation # [id number] Dictation # [id number] jn
[2016-11-11 08:04] LABS: BASO # 0.03 K/mm3 (0.0-2.0); BASO % 0.3 % (0.0-3.0); EOS # 0.6 (0.0-0.7); EOS % 6.4 % (1.5-5.0); GRAN # 5.84 (1.4-6.5); GRAN % 61.5 % (50.0-68.0); HEMATOCRIT 31.4 % (42.0-52.0); LYMPH # 2.3 (1.2-3.4); LYMPH % 24.4 % (22.0-35.0); MEAN CELL VOLUME 93.2 fL (80.0-105.0); MEAN CORPUSCULAR HEMOGLOBIN 30.9 pg (25.0-35.0); MEAN CORPUSCULAR HGB CONC 33.1 g/dl (31.0-37.0); MEAN PLATELET VOLUME 10.7 fl (7.0-11.0); MONO # 0.7 (0.1-0.6); MONO % 7.4 % (1.0-6.0); PLATELET COUNT 221 10^3/uL (120.0-450.0); RED CELL DISTRIBUTION WIDTH 17.2 % (11.5-14.5); WHITE BLOOD COUNT 9.5 10^3/ul (4.5-11.0)
[2016-11-11 08:20] LABS: ALB/GLOB RATIO 1.3 (1.1-1.8); ALKALINE PHOSPHATASE 74 U/L (38-133); ALT/SGPT 38 U/L (7-56); AST/SGOT 27 U/L (15-59); BILIRUBIN,TOTAL 0.7 mg/dL (0.2-1.3); BLOOD UREA NITROGEN 8 mg/dL (7-21); CARBON DIOXIDE 24 mmol/L (21-33); CHLORIDE 106 mmol/L (95-110); GFR AFRICAN-AMERICAN > 60; GLUCOSE,RANDOM 147 mg/dL (70-110); MAGNESIUM 1.7 mg/dL (1.7-2.2); POTASSIUM 4.2 mmol/L (3.6-5.0); SODIUM 138 mmol/L (132-148)
[2016-11-11 08:30] LABS: CALCIUM 9.3 mg/dL (8.4-10.5)
[2016-11-11] MEDS: Insulin Reg-LOW-Coverage SC SCH ×4 (08:32→22:10)
--- NOTE | 2016-11-11 08:42 | CP.PCM.PN ---
Subjective - Date & Time of Evaluation Date of Evaluation: 11/11/16 Time of Evaluation: 07:00 - Subjective Subjective: Stable on 2R. No CP or SOB V/S noted AF with slow VR, some 30's and 40's>atenolol held yesterday PE: Lungs: clear Cor.: S1S2 Abd.: soft Ext.: no edema Neuro.; alert I/O = 2370/1058 Labs noted: H/H 10.4/31.4 Echo; Nl LV. No valve abn. Objective - Vital Signs/Intake and Output Vital Signs (last 24 hours): Temp Pulse Resp BP Pulse Ox 97.7 F 54 L 18 128/69 96 11/11/16 06:00 11/11/16 06:00 11/11/16 06:00 11/11/16 06:00 11/11/16 06:00 Intake and Output: 11/11/16 11/11/16 06:59 18:59 Intake Total 990 750 Output Total 1050 Balance -60 750 - Medications Medications: Current Medications Acetaminophen (Tylenol 325mg Tab) 650 mg PO Q6H PRN PRN Reason: Fever >100.4 F Last Admin: 11/09/16 19:56 Dose: 650 mg Amlodipine Besylate (Norvasc) 10 mg PO DAILY [facility] Last Admin: 11/10/16 09:24 Dose: 10 mg Sodium Chloride (Sodium Chloride 0.45%) 1,000 mls @ 50 mls/hr IV .Q20H AISHA Last Admin: 11/11/16 03:24 Dose: 50 mls/hr Insulin Human Regular (Humulin R Low) 0 units SC ACHS AISHA PRN Reason: Protocol Last Admin: 11/10/16 22:41 Dose: Not Given Pantoprazole Sodium (Protonix Ec Tab) 40 mg PO 0600 [facility] Last Admin: 11/11/16 05:12 Dose: 40 mg - Labs Labs: 11/11/16 07:40 11/11/16 07:40 PT 11.4 Seconds (9.9-11.8) 11/07/16 19:44 INR 1.06 (0.93-1.08) 11/07/16 19:44 APTT 25.7 Seconds (23.7-30.8) 11/07/16 19:44 Assessment and Plan - Assessment and Plan (Free Text) Assessment: Assessment: Rectal bleeding/Anemia/S/P transfusions Dizziness AF with slow VR off atenolol HBP HLD Diabetes Pneumonia Plan: D/C atenolol and continue tel. monitoring. May need PPM GI testing for GIB today Monitor: tel, labs, H/H, I/O sats., etc. Will follow.
--- NOTE | 2016-11-11 12:01 | NM ---
Indication: prachi bright red blood with clots in stool Nuclear medicine GI bleeding scan Technique: Frontal images of the abdomen and pelvis were obtained over 60 minutes following the IV administration of 20.0 mCi technetium 99M labeled red blood cells. Comparison: None available Findings: Examination reveals intense uptake at the level of the penile urethra which can obscure a small active rectal bleed. Correlate clinically for incontinence or Aguilar catheter presence. The remainder of the study appears unremarkable. No additional foci of extravascular activity is identified to suggest GI hemorrhage. Impression: Examination reveals intense penile/urethral activity which can obscure a small active rectal bleed. Preliminary impression was provided by virtual radiologic.
[2016-11-11] MEDS ORDERED: Propofol 10 mg/ml Inj (20 ML) ONE (16:10)
[2016-11-11] MEDS ORDERED: Atropine 0.4 mg/ml Inj (1 mL) ONE (16:22)
[2016-11-11 18:22] VITALS: O2SAT 98
[2016-11-11] MEDS: Sodium Chloride 0.9% 1,000 ML IV SCH (18:32)
[2016-11-12 00:57] VITALS: RESP 20
[2016-11-12] MEDS: Sodium Chloride 0.9% 1,000 ML IV SCH (03:29)
[2016-11-12] MEDS: Pantoprazole 40 mg EC Tab PO SCH (05:36)
[2016-11-12 06:29] VITALS: BP 130/61; PULSE 52; TEMP 98.6
--- NOTE | 2016-11-12 08:26 | CP.PCM.PN ---
Subjective - Date & Time of Evaluation Date of Evaluation: 11/12/16 Time of Evaluation: 07:00 - Subjective Subjective: Stable on 2R. No CP or SOB. S/P EGD and colonoscopy yesterday: DUs, Mian, diverticulosis and 1 polyp removed. No bleeding seen. V/S noted AF with slow VR, some 30's and 40's at night, off atenolol PE: Lungs: clear Cor.: S1S2 Abd.: soft Ext.: no edema Neuro.; alert I/O = 2910/1900 Labs 11/11 noted. Echo; Nl LV. No valve abn. EGD and colonoscopy reports noted. Objective - Vital Signs/Intake and Output Vital Signs (last 24 hours): Temp Pulse Resp BP Pulse Ox 98.6 F 52 L 20 130/61 98 11/12/16 06:00 11/12/16 06:00 11/12/16 06:00 11/12/16 06:00 11/11/16 18:07 Intake and Output: 11/12/16 11/12/16 06:59 18:59 Intake Total 1320 Output Total 500 Balance 820 - Medications Medications: Current Medications Acetaminophen (Tylenol 325mg Tab) 650 mg PO Q6H PRN PRN Reason: Fever >100.4 F Last Admin: 11/09/16 19:56 Dose: 650 mg Amlodipine Besylate (Norvasc) 10 mg PO DAILY [facility] Last Admin: 11/11/16 18:38 Dose: 10 mg Insulin Human Regular (Humulin R Low) 0 units SC ACHS [facility] PRN Reason: Protocol Last Admin: 11/11/16 22:10 Dose: Not Given Pantoprazole Sodium (Protonix Ec Tab) 40 mg PO 0600 [facility] Last Admin: 11/12/16 05:36 Dose: 40 mg - Labs Labs: 11/11/16 07:40 11/11/16 07:40 PT 11.4 Seconds (9.9-11.8) 11/07/16 19:44 INR 1.06 (0.93-1.08) 11/07/16 19:44 APTT 25.7 Seconds (23.7-30.8) 11/07/16 19:44 Assessment and Plan - Assessment and Plan (Free Text) Assessment: Rectal bleeding/Anemia/S/P transfusions/'s/DU's/diverticulosis, colonic polyp removed Dizziness AF with slow VR off atenolol HBP HLD Diabetes Pneumonia Plan: As per GI and Dr. Calzada. No beta blockers or neg. chronotropic meds. Out-pt f/u. may need PPM in the future.
--- NOTE | 2016-11-12 17:14 | PN ---
DATE: 11/12/2016 Seen and examined at the bedside earlier today. The patient had EGD and colonoscopy yesterday. Dante es any acute overnight events. No reports of any nausea, vomiting, abdominal pain or bleeding. VITAL SIGNS: Temperature 98.6, blood pressure is 130/61, pulse is 52, respirations 20. LABORATORY DATA: Today, no new labs are noted for today except for POC glucose at 181. PHYSICAL EXAMINATION: HEENT: Sclerae anicteric. NECK: Supple. CARDIAC: S1, S2. LUNGS: Sounds are clear. ABDOMEN: With bowel sounds, soft, nontender, no rebound, guarding, or organomegaly. ASSESSMENT: The patient came with a gastrointestinal bleed. He is status post endoscopy and colonos copy and found to have gastric and duodenal ulcers, status post biopsy, colonoscopy found to have lorri yps and hemorrhoids and diverticulosis. He was also noted to have anemia, history of atrial flutter, dyslipidemia and diabetes mellitus. PLAN: The patient is going home today. We will follow up his biopsies. Discussed with the patient to follow up in our outpatient office. Continue with a heart healthy diet. The patient was given ou r office contact and the patient will follow up with PCP and cardiology as well. This was discussed with Dr. De Jesus, who was covering rounds. Yi VALDES cc: [id number] TT: 11/12/2016 17:13:48 Confirmation # [id number] Dictation # [id number] prema
--- NOTE | 2016-11-12 20:06 | DS ---
CHIEF COMPLAINT AND HISTORY OF PRESENT ILLNESS: This is an 81-year-old male who is coming into the [facility] with anemia. The patient had an endoscopy done yesterday by Dr. De Jesus. He has multiple u lcers that were seen. The patient did have anemia secondary to blood loss. It is felt that it may b e from the bleeding in the upper GI system. The patient is going to need to be on PPI. No antiplate let therapy is recommended by Dr. Coronado. He has no complaints of any headaches or dizziness. No na usea, no vomiting. His hemoglobin has been stable above 10. He is going to be discharged home to [facility] as an outpatient. No headaches or dizziness. No nausea, no vomiting. PHYSICAL EXAMINATION: VITAL SIGNS: Temperature is 98.6, pulse of 52, blood pressure 130/61, respirations 20. GENERAL: The patient is comfortable, in no acute distress. HEENT: Anicteric sclerae. Moist mucosa. NECK: No JVD or adenopathy. CARDIAC: S1/S2. No murmurs. No rubs. Regular. RESPIRATORY: Clear to auscultation bilaterally. No wheezes, rales, or rhonchi. Good air entry. ABDOMEN: Bowel sounds are positive, soft, nontender, and nondistended. EXTREMITIES: No edema. Has 1+ pulses. ASSESSMENT: 1. Peptic ulcer disease. 2. Anemia secondary to blood loss from upper gastrointestinal bleed. 3. Asymptomatic bradycardia. 4. Diabetes type 2. 5. Hypertension. 6. Dyslipidemia. 7. Iron deficiency anemia. 8. Atrial flutter. PLAN: The patient is currently on IV fluids. I will discontinue the patient's IV fluids at this poi nt. He is on amlodipine for his hypertension. He is on a heart healthy diet. He is going to contin ue his home medications. He was advised to discontinue his aspirin. The patient was on atenolol. T his is also going to be discontinued at home. He is going to continue his metformin and glipizide, h is simvastatin. Will discontinue his ranitidine and put him on PPI, Protonix. DIET: Two-gram sodium diabetic. CONDITION: Stable. ACTIVITIES: Increase as tolerated. Brian Calzada MD cc: [id number] TT: 11/12/2016 20:06:21 mn
== END 2016-11-12 11:28 | disposition home or self-care (01) | DRG 378 ==
LOC: ED 18:52 → ERH 21:27 → 2RNO 11-08 00:22 → OBSVTOIN 11-08 07:11
PROVIDERS: ADMIT Internal Medicine Nephrology; ATTEND Internal Medicine Nephrology
PROC: 30233N1 Transfusion of Nonautologous Red Blood Cells into Peripheral Vein, Percutaneous Approach (ICD-10-PCS; 2016-11-09)
PROC: 0DB68ZX Excision of Stomach, Via Natural or Artificial Opening Endoscopic, Diagnostic (ICD-10-PCS; principal; 2016-11-11 15:15)
PROC: 0DBM8ZZ Excision of Descending Colon, Via Natural or Artificial Opening Endoscopic (ICD-10-PCS; 2016-11-11 15:15)
DX: K25.4 Chronic or unspecified gastric ulcer with hemorrhage (principal); D50.0 Iron deficiency anemia secondary to blood loss (chronic); I48.92 Unspecified atrial flutter; E11.9 Type 2 diabetes mellitus without complications; E83.42 Hypomagnesemia; I10 Essential (primary) hypertension; I48.91 Unspecified atrial fibrillation; E78.5 Hyperlipidemia, unspecified; I25.10 Atherosclerotic heart disease of native coronary artery without angina pectoris; R00.1 Bradycardia, unspecified; E87.6 Hypokalemia; K63.5 Polyp of colon; K26.9 Duodenal ulcer, unspecified as acute or chronic, without hemorrhage or perforation; K57.30 Diverticulosis of large intestine without perforation or abscess without bleeding; K64.8 Other hemorrhoids; F17.210 Nicotine dependence, cigarettes, uncomplicated; Z79.84 Long term (current) use of oral hypoglycemic drugs; Z87.01 Personal history of pneumonia (recurrent); Z79.82 Long term (current) use of aspirin

== ENCOUNTER 2016-12-30 09:34 | Inpatient (IN) | payer MEDICARE ==
--- NOTE | 2016-12-30 10:49 | ED PDOC ---
Arrival/HPI - General Chief Complaint: Dizziness/Lightheaded Time Seen by Provider: 12/30/16 10:05 Historian: Patient - History of Present Illness Narrative History of Present Illness (Text): 12/30/16 10:46 81-year-old male with a history of hypertension and diabetes presents today with a one-week history of dizziness that has worsened. Patient states today he was unable to get out of the bed due to weakness and dizziness. He denies headaches. Denies neck or back pain. No chest pain or shortness of breath. Denies fevers or chills. He denies abdominal pain. No nausea or vomiting. Patient complaining of urinary frequency 2 days denies dysuria. Patient states he feels as though he just cannot get his balance. Denies the feeling of room spinning. The patient states he is just been feeling dizzy for the week but then since this morning he felt as though he was going to pass out. Time/Duration: 1 week Symptom Onset: Gradual Symptom Course: Worsening Quality: Other (no pain) Past Medical History - Provider Review Nursing Documentation Reviewed: Yes - Travel History Have you recently traveled outside [place] w/in the past 3 mons?: No - Tetanus Immunization Tetanus Immunization: Unknown - Cardiac Hx Hypertension: Yes - Pulmonary Hx Respiratory Disorders: Yes Hx Pneumonia: Yes - Neurological Hx Paralysis: No - HEENT Hx HEENT Disorder: No - Renal Hx Renal Disorder: No - Endocrine/Metabolic Hx Diabetes Mellitus Type 2: Yes - Hematological/Oncological Hx Blood Transfusions: No Hx Blood Transfusion Reaction: No - Integumentary Hx Dermatological Disorder: No - Musculoskeletal/Rheumatological Hx Falls: No - Gastrointestinal Hx Gastrointestinal Disorders: Yes Hx Colostomy: No Hx Crohn's Disease: No Hx Diverticulitis: No Hx Gall Bladder Disease: No Hx Gastroesophageal Reflux: Yes Hx Ileostomy: No Hx Liver Failure: No Hx Pancreatitis: No HX Swallowing Problems: No - Genitourinary/Gynecological Hx Genitourinary Disorders: Yes Other/Comment: proteinuria - Psychiatric Hx Psychophysiologic Disorder: No Hx Emotional Abuse: No Hx Physical Abuse: No Hx Substance Use: No - Surgical History Hx Cardiac Catheterization: No Hx Coronary Stent: No - Anesthesia Hx Anesthesia Reactions: (NEVER HAD) Hx Malignant Hyperthermia: No - Suicidal Assessment Feels Threatened In Home Enviroment: No Family/Social History - Physician Review Nursing Documentation Reviewed: Yes Family/Social History: Unknown Family HX Smoking Status: Former Smoker Hx Alcohol Use: Yes (LIGHT BEER) Hx Substance Use: No Allergies/Home Meds Allergies/Adverse Reactions: Allergies No Known Allergies Allergy (Verified 11/07/16 19:00) Home Medications: Home Meds Medication Instructions Recorded Confirmed GlipiZIDE [Glucotrol] 10 g PO BID 11/07/16 12/30/16 MetFORMIN [glucoPHAGE] 1,000 mg PO BID 11/07/16 12/30/16 Simvastatin 20 mg PO HS 11/07/16 12/30/16 amLODIPine [Norvasc] 10 mg PO DAILY 11/07/16 12/30/16 Review of Systems - Review of Systems Constitutional: absent: Fatigue, Fevers ENT: absent: Sore Throat, Sinus Congestion Respiratory: absent: SOB, Cough Cardiovascular: absent: Chest Pain, Palpitations Gastrointestinal: absent: Abdominal Pain, Diarrhea, Nausea, Vomiting Genitourinary Male: Frequency. absent: Dysuria, Hematuria Musculoskeletal: absent: Arthralgias, Back Pain, Neck Pain Skin: absent: Rash, Pruritis Neurological: Headache. absent: Dizziness, Focal Weakness Psychiatric: absent: Anxiety, Depression Physical Exam Vital Signs Reviewed: Yes Vital Signs Temp Pulse Resp BP Pulse Ox 12/30/16 16:29 84 16 156/58 H 98 12/30/16 14:52 89 16 100 12/30/16 13:10 87 16 181/81 H 99 12/30/16 13:07 100.0 F H 12/30/16 10:47 98.4 F 12/30/16 09:46 98.4 F 102 H 17 144/67 98 Temperature: Afebrile Blood Pressure: Normal Pulse: Tachycardic Respiratory Rate: Normal Appearance: Positive for: Well-Appearing, Non-Toxic, Comfortable Pain Distress: None Mental Status: Positive for: Alert and Oriented X 3 - Systems Exam Head: Present: Atraumatic Pupils: Present: PERRL Extroacular Muscles: Present: EOMI Mouth: Present: Moist Mucous Membranes Neck: Present: Normal Range of Motion, Trachea Midline. No: Meningeal Signs Respiratory/Chest: Present: Clear to Auscultation, Good Air Exchange. No: Respiratory Distress, Accessory Muscle Use Cardiovascular: Present: Regular Rate and Rhythm, Normal S1, S2. No: Murmurs Abdomen: No: Tenderness, Distention, Rebound, Guarding Back: Present: Normal Inspection. No: CVA Tenderness, Midline Tenderness Upper Extremity: Present: Normal ROM Lower Extremity: Present: Normal ROM Neurological: Present: GCS=15, Speech Normal Skin: Present: Warm, Dry, Normal Color. No: Rashes Psychiatric: Present: Alert, Oriented x 3 Medical Decision Making ED Course and Treatment: 12/30/16 10:51 81-year-old male with dizziness and near syncope and urinary frequency x 2 days. CBC: wbc;20.6 CMP: glucose; 211 Troponin:0.03 EKG 93 bpm left axis deviation no ST elevations Chest x-ray wnl Urinalysis: + blood, + nitrates, + leukocytes CT of the head:FINDINGS: HEMORRHAGE: No intracranial hemorrhage. BRAIN: No mass effect or edema. There is moderate atrophy. Chronic microvascular changes are seen in the periventricular white matter VENTRICLES: Unremarkable. No hydrocephalus. CALVARIUM: Unremarkable. PARANASAL SINUSES: Unremarkable as visualized. No significant inflammatory changes. MASTOID AIR CELLS: Unremarkable as visualized. No inflammatory changes. OTHER FINDINGS: None. IMPRESSION: No acute findings 12/30/16 15:17 pt with wbc 20.6, rectal temp ordered; rectal temp 100.0. vbg added as patient now has sirs criteria. lactate; 3.7 code sepsis called; pt Given 1L NS iv bolus. pt slightly hypertensive, without tachycardia or hypotension. blood cultures and urine cultures pending. rocephin started IV. case discussed with dr. adame attending. case discussed with dr. goodman; accepts admission for urosepsis. impression; urosepsis admit to tele dr. goodman. - Lab Interpretations Lab Results: 12/30/16 10:59 12/30/16 10:59 Lab Results 12/30/16 13:45: Urine Color Yellow, Urine Appearance Sl cloudy, Urine pH 6.0, Ur Specific [place] >= 1.030, Urine Protein 100 H, Urine Glucose (UA) Negative, Urine Ketones Trace H, Urine Blood Moderate H, Urine Nitrate Positive H, Urine Bilirubin Negative, Urine Urobilinogen 0.2, Ur Leukocyte Esterase Small H, Urine RBC 0 - 2, Urine WBC Tntc, Ur Epithelial Cells 0 - 2, Urine Bacteria Large 12/30/16 13:30: pO2 40, VBG pH 7.31 L, VBG pCO2 44.0, VBG HCO3 22.2, VBG Total CO2 23.6, VBG O2 Sat (Calc) 79.2 H, VBG Base Excess -4.1 L, VBG Potassium 4.3, Glucose 194 H, Lactate 3.7 H, FiO2 21.0, Sodium 149.0 H, Chloride 95.0 L, Venous Blood Potassium 4.3 12/30/16 10:59: WBC 20.6 H D, RBC 3.83, Hgb 10.8 L, Hct 32.9 L, MCV 85.9, MCH 28.2, MCHC 32.8, RDW 17.1 H, Plt Count 227, MPV 10.6, Neutrophils % (Manual) 84 H, Band Neutrophils % 1, Lymphocytes % (Manual) 10 L, Monocytes % (Manual) 4, Basophils % (Manual) 1, Platelet Evaluation Normal 12/30/16 10:59: Sodium 138, Potassium 4.3, Chloride 102, Carbon Dioxide 27, Anion Gap 13, BUN 14, Creatinine 1.0, Est GFR ( Amer) > 60, Est GFR (Non- Af Amer) > 60, Random Glucose 211 H, Calcium 9.6, Total Bilirubin 1.4 H, AST 38 , ALT 38, Alkaline Phosphatase 95, Lactate Dehydrogenase 351, Total Creatine Kinase < 20 L, Troponin I 0.03 D, Total Protein 7.0, Albumin 3.7, Globulin 3.3 , Albumin/Globulin Ratio 1.1 12/30/16 10:50: Phosphorus 2.2 L, Magnesium 1.6 L 12/30/16 10:50: PT 12.7 H, INR 1.18 H, APTT 29.9 - RAD Interpretation Radiology Orders: 12/30/16 10:14 HEAD W/O CONTRAST [CT] Stat CHEST PORTABLE [RAD] Stat - Medication Orders Current Medication Orders: Amlodipine Besylate (Norvasc) 10 mg PO DAILY [facility] Glipizide (Glucotrol) 10,000 mg PO BID [facility] Insulin Human Lispro (Humalog Low) 0 units SC ACHS [facility] PRN Reason: Protocol Magnesium Oxide (Mag-Ox) 400 mg PO BID [facility] Stop: 01/04/17 18:01 Non-Formulary Medication (Simvastatin [Simvastatin]) 20 mg PO HS [facility] Pantoprazole Sodium (Protonix Ec Tab) 40 mg PO DAILY [facility] Potassium Phos/Sodium Phos (Neutra-Phos) 1 pkt PO BID [facility] Stop: 01/02/17 18:01 Discontinued Medications Sodium Chloride (Sodium Chloride 0.9%) 1,000 mls @ 999 mls/hr IV .Q1H1M STA Stop: 12/30/16 14:51 Last Admin: 12/30/16 13:56 Dose: 999 mls/hr Ceftriaxone Sodium (Rocephin 1 Gram Ivpb) 1 gm in 100 mls @ 200 mls/hr IVPB STAT STA PRN Reason: Protocol Stop: 12/30/16 14:47 Last Admin: 12/30/16 14:45 Dose: 200 mls/hr Disposition/Present on Arrival - Present on Arrival Any Indicators Present on Arrival: Yes History of DVT/PE: No History of Uncontrolled Diabetes: Yes Urinary Catheter: No History of Decub. Ulcer: No History Surgical Site Infection Following: None - Disposition Have Diagnosis and Disposition been Completed?: Yes Diagnosis: Urinary tract infection, Sepsis Disposition: HOSPITALIZED Disposition Time: 13:55 Patient Plan: Admission, Telemetry Patient Problems: Current Active Problems Problem Status Onset Sepsis Acute Urinary tract infection Acute Condition: FAIR
--- NOTE | 2016-12-30 10:52 | RAD ---
HISTORY: dizziness COMPARISON: 11/07/2016 FINDINGS: LUNGS: No active pulmonary disease. PLEURA: No significant pleural effusion identified, no pneumothorax apparent. CARDIOVASCULAR: Mild cardiomegaly OSSEOUS STRUCTURES: No significant abnormalities. VISUALIZED UPPER ABDOMEN: Normal. OTHER FINDINGS: None. IMPRESSION: No active disease.
[2016-12-30 11:04] LABS: HEMOGLOBIN 10.8 g/dL (14.0-18.0); MEAN CELL VOLUME 85.9 fl (80.0-105.0); MEAN CORPUSCULAR HEMOGLOBIN 28.2 pg (25.0-35.0); MEAN CORPUSCULAR HGB CONC 32.8 g/dl (31.0-37.0); MEAN PLATELET VOLUME 10.6 fl (7.0-11.0); PLATELET COUNT 227 10^3/uL (120.0-450.0); RBC 3.83 10^6/uL (3.5-6.1); RED CELL DISTRIBUTION WIDTH 17.1 % (11.5-14.5); WHITE BLOOD COUNT 20.6 10^3/ul (4.5-11.0)
[2016-12-30 11:13] LABS: ALB/GLOB RATIO 1.1 (1.1-1.8); ALBUMIN 3.7 g/dL (3.0-4.8); ALT/SGPT 38 U/L (7-56); AST/SGOT 38 U/L (15-59); BLOOD UREA NITROGEN 14 mg/dL (7-21); CALCIUM 9.6 mg/dL (8.4-10.5); GFR AFRICAN-AMERICAN > 60; GFR NON-AFRICAN AMERICAN > 60
[2016-12-30 11:25] LABS: TROPONIN I 0.03 ng/mL
[2016-12-30 11:37] LABS: BAND 1 % (0-2); BASOPHIL 1 % (0.0-1.0); LYMPHOCYTE 10 % (22.0-35.0); MONOCYTE 4 % (1.0-6.0); NEUTROPHIL 84 % (50.0-70.0)
[2016-12-30 11:38] LABS: PLATELET ESTIMATE NORMAL (NORMAL)
--- NOTE | 2016-12-30 12:00 | CT ---
PROCEDURE: CT HEAD WITHOUT CONTRAST. HISTORY: Dizziness COMPARISON: None available. TECHNIQUE: Axial computed tomography images were obtained through the head/brain without intravenous contrast. Radiation dose: Total exam DLP = 801 mGy-cm. This CT exam was performed using one or more of the following dose reduction techniques: Automated exposure control, adjustment of the mA and/or kV according to patient size, and/or use of iterative reconstruction technique. FINDINGS: HEMORRHAGE: No intracranial hemorrhage. BRAIN: No mass effect or edema. There is moderate atrophy. Chronic microvascular changes are seen in the periventricular white matter VENTRICLES: Unremarkable. No hydrocephalus. CALVARIUM: Unremarkable. PARANASAL SINUSES: Unremarkable as visualized. No significant inflammatory changes. MASTOID AIR CELLS: Unremarkable as visualized. No inflammatory changes. OTHER FINDINGS: None. IMPRESSION: No acute findings
[2016-12-30 13:46] LABS: VENOUS BLOOD GAS BASE EXCESS -4.1 mmol/L (0.0-2.0); VENOUS BLOOD GAS PO2 40 mm/Hg (30-55); VENOUS BLOOD PH 7.31 (7.32-7.43)
[2016-12-30] MEDS ORDERED: Sodium Chloride 0.9% 1,000 ML IV STA (13:51)
[2016-12-30 14:04] LABS: URINE BILIRUBIN NEGATIVE (NEGATIVE); URINE BLOOD MODERATE (NEGATIVE); URINE GLUCOSE (UA) NEGATIVE (NEGATIVE); URINE LEUKOCYTE ESTERASE SMALL Leu/uL (NEGATIVE); URINE NITRATE POSITIVE (NEGATIVE); URINE PROTEIN 100 mg/dL (<30 mg/dL); URINE UROBILINOGEN 0.2 E.U./dL (<1 E.U./dL)
[2016-12-30 14:06] LABS: URINE APPEARANCE SL CLOUDY (CLEAR); URINE COLOR YELLOW (YELLOW)
[2016-12-30 14:07] LABS: MAGNESIUM 1.6 mg/dL (1.7-2.2)
[2016-12-30 14:17] LABS: URINE BACTERIA LARGE (NEG); URINE EPITHELIAL CELLS 0 - 2 /hpf (0-5); URINE RBC 0 - 2 /hpf (0-2); URINE WBC TNTC /hpf (0-6)
[2016-12-30 14:17] LABS: INR 1.18 (0.93-1.08); PARTIAL THROMBOPLASTIN TIME 29.9 Seconds (23.7-30.8); PROTHROMBIN TIME 12.7 Seconds (9.9-11.8)
[2016-12-30] MEDS ORDERED: cefTRIAXone 1 gm 1 GM/100 ML BAG IVPB STA (14:18)
[2016-12-30] MEDS: Pantoprazole 40 mg EC Tab PO SCH (18:02)
[2016-12-30 18:14] LABS: VENOUS BLOOD GAS BASE EXCESS -4.5 mmol/L (0.0-2.0); VENOUS BLOOD GAS PO2 35 mm/Hg (30-55); VENOUS BLOOD PH 7.31 (7.32-7.43)
[2016-12-30] MEDS: Magnesium Oxide 400 mg Tab UD PO SCH (18:23)
[2016-12-30] MEDS: Potassium & Sodium Phosphate PO SCH (18:23)
[2016-12-30 20:41] VITALS: BMI 25.2
[2016-12-30] MEDS ORDERED: Pneumococcal 23-Valent Vaccine IM ONE (20:41)
[2016-12-30] MEDS: Insulin Lispro (humaLOG) LOW Coverage SC SCH (22:01)
[2016-12-30 22:14] LABS: VENOUS BLOOD GAS BASE EXCESS 0.1 mmol/L (0.0-2.0); VENOUS BLOOD GAS PO2 23 mm/Hg (30-55); VENOUS BLOOD PH 7.41 (7.32-7.43)
[2016-12-31] MEDS: Insulin Lispro (humaLOG) LOW Coverage SC SCH ×4 (07:42→22:02)
--- NOTE | 2016-12-31 07:44 | CP.PCM.CON ---
History of Present Illness - History of Present Illness History of Present Illness: PGY-[address] Claudette VENTURA consult: Urosepsis Mr. Xiong, 81-year-old male, with PMH L scalp squamous cell ca, hypertension, diabetes, active smoker, presents with a one-week history of dizziness that has worsened. Patient states today he was unable to get out of the bed due to weakness and dizziness. Patient complaining of urinary frequency 2 days denies dysuria. Patient states he feels as though he just cannot get his balance. Denies the feeling of room spinning. The patient states he is just been feeling dizzy for the week but then since this morning he felt as though he was going to pass out. Upon ED arrival T 100 rectal, HR 87, 181/81, 99RA WBC 20.6. Hb 10.8 Lactate 3.7 --> 3.7 --> 2.3 BMP wnl. Total bili 1.4 Trops 0.03 U/A: Epithelial 0-2; WBC Tbtc. (+) Leuk Est, nitrate. protein, ketone, blood/ urobili EKG: iregular rhythm 93. Left axis deviation. QTc 450. Occasional PVC CT-head and CXR negative for acute disease Denies headaches, neck or back pain. No chest pain or shortness of breath. Denies fevers or chills. He denies abdominal pain. No nausea or vomiting. PMH: A-fib/flutter no rate control, no anticoagulant d/t GI bleed. Echo (2016) normal LVEF HTN on amlodipine, HLD DM2 on metformin, glipizide Gastric/Duodenal ulcers (clean based per EGD 10/2016) Hx GI bleed; (bleeding scan 10/2016 "intense penile/urethral acitivity obscure a small active rectal bleed) Moderated diverticulosis in sigmoid colon and descending coloin Diverticulosis in entire colon; internal hemorrhos L scalp squamous cell ca dementia PSH: 10/2016 EGD/Colonoscopy 10/2016 s/p polypectomy 08/2015 Radical excision on scalp squamous cell CA [facility]: October 2016 - [facility]: Bloody stool SH: Active smoker Light beer Denies drug All: NKDA Med: GlipiZIDE 10 BID, Metformin 1000 bid Simvastatin 20 HS amLODIPine 10 DAILY Protonix ? PMD: Past Patient History - Tetanus Immunizations Tetanus Immunization: Unknown - Past Medical History & Family History Past Medical History?: Yes - Past Social History Smoking Status: Former Smoker - CARDIAC Hx Cardiac Disorders: Yes Hx Angina: No Hx Cardia Arrhythmia: No Hx Circulatory Problems: No Hx Congestive Heart Failure: No Hx Heart Murmur: No Hx Heart Transplant: No Hx Hypercholesterolemia: No Hx Hypertension: Yes Hx Internal Defibrillator: No Hx Mitral Valve Prolapse: No Hx Pacemaker: No Hx Peripheral Edema: No Hx Peripheral Vascular Disease: No - PULMONARY Hx Respiratory Disorders: Yes Hx Asthma: No Hx Bronchitis: No Hx Chronic Obstructive Pulmonary Disease (COPD): No Hx Emphysema: No Hx Pneumonia: Yes Hx Respiratory Aspiration: No Hx Respiratory Tract Infection: No Hx Sleep Apnea: No Hx Tuberculosis: No - NEUROLOGICAL Hx Neurological Disorder: No Hx Alzheimer's Disease: No HX Cerebrovascular Accident: No Hx Dementia: No Hx Dizziness: No Hx Meningitis: No Hx Migraine: No Hx Parkinson's Disease: No Hx Seizures: No Hx Transient Ischemic Attacks (TIA): No - HEENT Hx HEENT Problems: No Hx Blind: No Hx Cataracts: No Hx Deafness: No Hx Difficulty Chewing: No Hx Epistaxis: No Hx Glaucoma: No Hx Macular Degeneration: No - RENAL Hx Chronic Kidney Disease: No Hx Dialysis: No Hx Kidney Stones: No Hx Neurogenic Bladder: No Hx Pyelonephritis: No Hx Renal (Kidney) Cancer: No Hx Renal Failure: No - ENDOCRINE/METABOLIC Hx Endocrine Disorders: Yes Hx Adrenal Cancer: No Hx Diabetes Insipidus: No Hx Diabetes Mellitus Type 1: No Hx Diabetes Mellitus Type 2: Yes Hx Hyperthyroidism: No Hx Hypothyroidism: No Hx Systemic Lupus Erythematosus: No - HEMATOLOGICAL/ONCOLOGICAL Hx Blood Disorders: No Hx AIDS: No Hx Anemia: No Hx Cancer: No Hx Chemotherapy: No Hx Cirrhosis: No Hx Hemophilia: No Hx Hepatitis A: No Hx Hepatitis B: No Hx Hepatitis C: No Hx Human Immunodeficiency Virus (HIV): No Hx Metastesis: No Hx Shingles: No Hx Sickle Cell Disease: No Hx Unexplained Bleeding: No - INTEGUMENTARY Hx Dermatological Problems: No Hx Basil Cell: No Hx Eczema: No Hx Melanoma: No Hx Psoriasis: No Hx Squamous Cell: No - MUSCULOSKELETAL/RHEUMATOLOGICAL Hx Falls: No - GASTROINTESTINAL Hx Gastrointestinal Disorders: Yes Hx Colostomy: No Hx Crohn's Disease: No Hx Diverticulitis: No Hx Gall Bladder Disease: No Hx Gastroesophageal Reflux: Yes Hx Ileostomy: No Hx Liver Failure: No Hx Pancreatitis: No HX Swallowing Problems: No Hx Ulcer: No - GENITOURINARY/GYNECOLOGICAL Hx Genitourinary Disorders: No Hx Hematuria: No Hx Incontinence: No Hx Prostate Problems: No Hx Sexually Transmitted Disorders: No Hx Urinary Tract Infection: No - PSYCHIATRIC Hx Substance Use: No - SURGICAL HISTORY Hx Surgeries: No Hx Amputation: No Hx Appendectomy: No Hx Cardiac Catheterization: No Hx Cholecystectomy: No Hx Coronary Stent: No Hx Gastric Bypass Surgery: No Hx Hysterectomy: No Hx Joint Replacement: No Hx Kidney Transplant: No Hx Liver Transplant: No Hx Mastectomy: No Hx Musculoskeletal Surgery: No Hx Open Heart Surgery: No Hx Orthopedic Surgery: No Hx Splenectomy: No Hx Valve Replacement: No - ANESTHESIA Hx Anesthesia Reactions: (NEVER HAD) Hx Malignant Hyperthermia: No Meds Allergies/Adverse Reactions: Allergies Allergy/AdvReac Type Severity Reaction Status Date / Time No Known Allergies Allergy Verified 11/07/16 19:00 - Medications Medications: Current Medications Amlodipine Besylate (Norvasc) 10 mg PO DAILY [facility] Last Admin: 12/30/16 18:02 Dose: 10 mg Atorvastatin Calcium (Lipitor) [address] [facility] Last Admin: 12/30/16 22:02 Dose: 10 mg Glipizide (Glucotrol) 10 mg PO BID [facility] Last Admin: 12/30/16 18:23 Dose: 10 mg Insulin Human Lispro (Humalog Low) 0 units [facility] PRN Reason: Protocol Last Admin: 12/30/16 22:01 Dose: Not Given Magnesium Oxide (Mag-Ox) 400 mg PO BID [facility] Stop: 01/04/17 18:01 Last Admin: 12/30/16 18:23 Dose: 400 mg Pantoprazole Sodium (Protonix Ec Tab) 40 mg PO DAILY [facility] Last Admin: 12/30/16 18:02 Dose: 40 mg Potassium Phos/Sodium Phos (Neutra-Phos) 1 pkt PO BID [facility] Stop: 01/02/17 18:01 Last Admin: 12/30/16 18:23 Dose: 1 pkt Physical Exam - Head Exam Head Exam: ATRAUMATIC, NORMAL INSPECTION, NORMOCEPHALIC - Eye Exam Eye Exam: EOMI, Normal appearance, PERRL. absent: Scleral icterus - ENT Exam ENT Exam: Mucous Membranes Moist - Respiratory Exam Respiratory Exam: Clear to Auscultation Bilateral. absent: Rales, Rhonchi, Wheezes - Cardiovascular Exam Cardiovascular Exam: REGULAR RHYTHM, +S1, +S2 - GI/Abdominal Exam GI & Abdominal Exam: Normal Bowel Sounds, Soft. absent: Distended, Rigid, Tenderness Additional comments: no suprapubic tenderness - Back Exam Back exam: absent: CVA tenderness (L), CVA tenderness (R) Results - Vital Signs Recent Vital Signs: Last Vital Signs Temp 98.7 F 12/31/16 06:00 Pulse 80 12/31/16 06:00 Resp 20 12/31/16 06:00 BP 128/58 L 12/31/16 06:00 Pulse Ox 95 12/31/16 06:00 - Labs Result Diagrams: 12/31/16 06:30 12/31/16 06:30 Labs: Laboratory Results - last 24 hr 12/30/16 12/30/16 12/30/16 17:55 21:43 22:09 pO2 35 23 L VBG pH 7.31 L 7.41 VBG pCO2 43.0 39.0 L VBG HCO3 21.7 24.7 VBG Total CO2 23.0 25.9 VBG O2 Sat (Calc) 74.5 H 46.2 VBG Base Excess -4.5 L 0.1 VBG Potassium 4.3 4.1 Sodium 147.0 137.0 Chloride 99.0 110.0 H Glucose 201 H 127 H Lactate 3.7 H 2.3 H FiO2 21.0 21.0 POC Glucose (mg/dL) 163 H Venous Blood Potassium 4.3 4.1 12/31/16 07:12 pO2 VBG pH VBG pCO2 VBG HCO3 VBG Total CO2 VBG O2 Sat (Calc) VBG Base Excess VBG Potassium Sodium Chloride Glucose Lactate FiO2 POC Glucose (mg/dL) 127 H Venous Blood Potassium Assessment & Plan - Assessment and Plan (Free Text) Plan: UTI complicated vs uncomplicated r/o Upper urinary tract infection Problem Sepsis for UTI Hx Dementia - PSA - i/o - renal u/s - trend fever - continue - ceftriazone (ecoli, gram - bacilli) s/r/d/w Dr. sanchez
[2016-12-31 08:27] LABS: HEMOGLOBIN 9.2 g/dL (14.0-18.0); MEAN CELL VOLUME 86.5 fl (80.0-105.0); MEAN CORPUSCULAR HEMOGLOBIN 27.6 pg (25.0-35.0); MEAN CORPUSCULAR HGB CONC 31.9 g/dl (31.0-37.0); MEAN PLATELET VOLUME 10.6 fl (7.0-11.0); RBC 3.33 10^6/uL (3.5-6.1); RED CELL DISTRIBUTION WIDTH 17.5 % (11.5-14.5); WHITE BLOOD COUNT 14.8 10^3/ul (4.5-11.0)
[2016-12-31 08:48] LABS: ALBUMIN 3.2 g/dL (3.0-4.8); ALT/SGPT 38 U/L (7-56); AST/SGOT 34 U/L (15-59); BLOOD UREA NITROGEN 15 mg/dL (7-21); CALCIUM 9.5 mg/dL (8.4-10.5); GFR AFRICAN-AMERICAN > 60; GFR NON-AFRICAN AMERICAN > 60; MAGNESIUM 1.8 mg/dL (1.7-2.2)
[2016-12-31] MEDS: cefTRIAXone 1 gm 1 GM/100 ML BAG IVPB SCH (10:14)
[2016-12-31] MEDS: Potassium & Sodium Phosphate PO SCH ×2 (10:15→18:38)
[2016-12-31] MEDS: Pantoprazole 40 mg EC Tab PO SCH (10:17)
[2016-12-31] MEDS: Magnesium Oxide 400 mg Tab UD PO SCH ×2 (10:17→18:38)
[2016-12-31 12:37] LABS: VENOUS BLOOD GAS BASE EXCESS 0.6 mmol/L (0.0-2.0); VENOUS BLOOD GAS PO2 20 mm/Hg (30-55); VENOUS BLOOD PH 7.36 (7.32-7.43)
--- NOTE | 2016-12-31 14:42 | US ---
PROCEDURE: Ultrasound of the Kidneys HISTORY: r/o pyelonephritis or structural/functional abnorm COMPARISON: None available. TECHNIQUE: Sonogram of the kidneys. FINDINGS: RIGHT KIDNEY: Measures: 10.3 cm. Normal in size, contour and echogenicity. No stone, solid mass lesion or hydronephrosis visualized. LEFT KIDNEY: Measures: 10.5 cm. Normal in size, contour and echogenicity. No stone, solid mass lesion or hydronephrosis visualized. OTHER FINDINGS: None. IMPRESSION: Unremarkable renal sonogram.
[2016-12-31 17:07] VITALS: RESP 20
--- NOTE | 2017-01-01 00:01 | CARD ---
APPROVED REPORT EKG Measurement Heart [id number] <Conclusion> Atrial flutter with variable AV block PVCs vs aberrancy Left axis deviation Abnormal ECG
--- NOTE | 2017-01-01 06:24 | CP.PCM.PN ---
<Ruba Caballero - Last Filed: 01/01/17 06:25> Subjective - Date & Time of Evaluation Date of Evaluation: 01/01/17 Time of Evaluation: 06:21 - Subjective Subjective: PGY-[address] Sanchez Pt downgraded from telemetry. Pt voided on urinal, noted clear jackie, not cloudy. Objective - Vital Signs/Intake and Output Vital Signs (last 24 hours): Temp Pulse Resp BP Pulse Ox 97.7 F 65 20 150/70 100 12/31/16 16:30 12/31/16 16:30 12/31/16 16:30 12/31/16 16:30 12/31/16 16:30 Intake and Output: 12/31/16 01/01/17 18:59 06:59 Intake Total 0 480 Output Total 100 Balance -100 480 - Medications Medications: Current Medications Amlodipine Besylate (Norvasc) 10 mg PO DAILY [facility] Last Admin: 12/31/16 10:18 Dose: 10 mg Atorvastatin Calcium (Lipitor) 10 mg PO HS [facility] Last Admin: 12/31/16 22:02 Dose: 10 mg Glipizide (Glucotrol) 10 mg PO BID [facility] Last Admin: 12/31/16 18:38 Dose: Not Given Ceftriaxone Sodium (Rocephin 1 Gram Ivpb) 1 gm in 100 mls @ 100 mls/hr IVPB DAILY [facility] PRN Reason: Protocol Last Admin: 12/31/16 10:14 Dose: 100 mls/hr Insulin Human Lispro (Humalog Low) 0 units SC ACHS [facility] PRN Reason: Protocol Last Admin: 12/31/16 22:02 Dose: Not Given Magnesium Oxide (Mag-Ox) 400 mg PO BID [facility] Stop: 01/04/17 18:01 Last Admin: 12/31/16 18:38 Dose: 400 mg Pantoprazole Sodium (Protonix Ec Tab) 40 mg PO DAILY [facility] Last Admin: 12/31/16 10:17 Dose: 40 mg Potassium Phos/Sodium Phos (Neutra-Phos) 1 pkt PO BID [facility] Stop: 01/02/17 18:01 Last Admin: 12/31/16 18:38 Dose: 1 pkt - Labs Labs: 12/31/16 06:30 12/31/16 06:30 PT 12.7 Seconds (9.9-11.8) H 12/30/16 10:50 INR 1.18 (0.93-1.08) H 12/30/16 10:50 APTT 29.9 Seconds (23.7-30.8) 12/30/16 10:50 - Constitutional Appears: No Acute Distress - Head Exam Head Exam: ATRAUMATIC, NORMAL INSPECTION, NORMOCEPHALIC - Eye Exam Eye Exam: EOMI, Normal appearance, PERRL. absent: Scleral icterus Pupil Exam: NORMAL ACCOMODATION - ENT Exam ENT Exam: Mucous Membranes Moist - Neck Exam Additional comments: supple - Respiratory Exam Respiratory Exam: Rales, Rhonchi, Wheezes. absent: Clear to Ausculation Bilateral - Cardiovascular Exam Cardiovascular Exam: REGULAR RHYTHM, +S1, +S2 - GI/Abdominal Exam GI & Abdominal Exam: Soft, Normal Bowel Sounds. absent: Guarding, Rigid, Tenderness Additional comments: no suprapubic tenderness - Extremities Exam Extremities Exam: Normal Capillary Refill. absent: Calf Tenderness, Pedal Edema - Back Exam Back Exam: absent: CVA tenderness (L), CVA tenderness (R) - Neurological Exam Neurological Exam: Alert, Awake - Psychiatric Exam Psychiatric exam: Normal Affect, Normal Mood - Skin Skin Exam: Dry, Warm Assessment and Plan - Assessment and Plan (Free Text) Plan: Mr. Xiong, 81-year-old male, with PMH dementia, L scalp squamous cell ca, hypertension, diabetes, active smoker, presents with a one-week history of dizziness that has worsened associated with urinary frequency 2 days. - UTI complicated vs uncomplicated, likely - Unlikely Upper urinary tract infection - Possible Sepsis for UTI - improving - Hx Dementia Plan - Continue trend fever, labs, and monitor clinical course Tmax 100 two days ago. T99.1 yesterday. Continue trend fever. WBC 20.6 --> 14.8 Lactate 3.7 --> 2.3 --> 1.7 - Pending PSA - renal u/s (12/31/16): No stone, [place] mass, hydronephrosis b/l - ceftriazone day 2 (ecoli, gram - bacilli) - continue glycemic control Cultures Blood culture (12/30): Negative x 1 day Urine culture (12/30): Gram negative jeffrey Will s/r/d/w Dr. sanchez <Ac Sanchez S - Last Filed: 01/01/17 10:55> Objective - Vital Signs/Intake and Output Vital Signs (last 24 hours): Temp Pulse Resp BP Pulse Ox 98.3 F 70 20 153/66 H 98 01/01/17 07:58 01/01/17 07:58 01/01/17 07:58 01/01/17 09:26 01/01/17 07:58 Intake and Output: 01/01/17 01/01/17 06:59 18:59 Intake Total 480 Balance 480 - Medications Medications: Current Medications Amlodipine Besylate (Norvasc) 10 mg PO DAILY [facility] Last Admin: 01/01/17 09:26 Dose: 10 mg Atorvastatin Calcium (Lipitor) 10 mg PO HS [facility] Last Admin: 12/31/16 22:02 Dose: 10 mg Glipizide (Glucotrol) 10 mg PO BID [facility] Last Admin: 01/01/17 09:27 Dose: 10 mg Ceftriaxone Sodium (Rocephin 1 Gram Ivpb) 1 gm in 100 mls @ 100 mls/hr IVPB DAILY [facility] PRN Reason: Protocol Last Admin: 12/31/16 10:14 Dose: 100 mls/hr Insulin Human Lispro (Humalog Low) 0 units SC ACHS [facility] PRN Reason: Protocol Last Admin: 01/01/17 07:26 Dose: Not Given Magnesium Oxide (Mag-Ox) 400 mg PO BID [facility] Stop: 01/04/17 18:01 Last Admin: 01/01/17 09:25 Dose: 400 mg Pantoprazole Sodium (Protonix Ec Tab) 40 mg PO DAILY [facility] Last Admin: 01/01/17 09:26 Dose: 40 mg Potassium Phos/Sodium Phos (Neutra-Phos) 1 pkt PO BID [facility] Stop: 01/02/17 18:01 Last Admin: 01/01/17 09:24 Dose: 1 pkt - Labs Labs: 01/01/17 10:20 01/01/17 08:00 PT 12.7 Seconds (9.9-11.8) H 12/30/16 10:50 INR 1.18 (0.93-1.08) H 12/30/16 10:50 APTT 29.9 Seconds (23.7-30.8) 12/30/16 10:50 Assessment and Plan - Assessment and Plan (Free Text) Plan: Infectious diseases Attending Physician Attestation Patient seen and examined, discussed with medical concierge. I have reviewed the pertinent clinical findings. I agree with the above findings, assessment, plan. In addition, we will switch to Cefazolin for E. coli UTI, awaiting PSA levels.
--- NOTE | 2017-01-01 07:23 | HP ---
DATE: 12/31/2016 CHIEF COMPLAINT AND HISTORY OF PRESENT ILLNESS: This is an 81-year-old male who is coming into the hospital with past medical history of diabetes type 2, hypertension. The patient has been complaining of dizziness over the last few days and has become worse. He said he is having difficulty in getting out bed, because of the weakness that he has had. He denies any chest pain or shortness of breath. He has also been complaining of dysuria for the past few days. He has no fever or chills, no abdominal pain, no back pain. The patient states that his dizziness is worse when he gets up in the morning and when he tries to ambulate. He has no headache or dizziness. No fever or chills. This morning, he did say that he is feeling better. REVIEW OF SYSTEM: All other review of systems are within normal limits, except that was mentioned. ALLERGIES: NO KNOWN DRUG ALLERGIES. HOME MEDICATION: Glucotrol, Glucophage, simvastatin, and Norvasc. PAST MEDICAL HISTORY: 1. Diabetes type 2. 2. Hypertension. 3. Dyslipidemia. 4. Gastric/duodenal ulcer. 5. Diverticulosis. 6. 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 SOCIAL HISTORY: He is a smoker, he states he smokes about 10 cigarette a day, he drinks alcohol socially. He denies any substance abuse. He worked as a teacher at [employer]. PAST SURGICAL HISTORY: He had EGD and colostomy in 10/2016. He had a squamous cell excision in 08/2015. PHYSICAL EXAMINATION: VITAL SIGNS: He has a temperature of 98.7, pulse of 80, blood pressure 128/58, respirations 20 and O2 saturation 95%. Height is 6 feet, weight is 191 pounds, BMI is 25.9. GENERAL: The patient lying in bed, uncomfortable, and in no acute distress. HEENT: Atraumatic and normocephalic. Anicteric sclerae. Moist mucosa. [place] conjunctivae. No oral lesions. NECK: No JVD, anterior and posterior adenopathy, thyromegaly, or bruits. CARDIOVASCULAR: S1 and S2 regular. No murmur, rubs, or gallop. LUNGS: Clear to auscultation bilaterally. No wheezes, rales, or rhonchi. ABDOMEN: Bowel sounds are positive. Soft, nontender and nondistended. No hepatosplenomegaly. No rebound and no guarding EXTREMITIES: No cyanosis, clubbing, or edema. NEUROLOGIC: No facial asymmetry. Tongue is midline. No vulva deviation. Power is 5/5 upper extremity and lower extremity. Sensation intact in upper extremity and lower extremity. PSYCHIATRIC: She is awake, alert and oriented x3. No anxiety or depression. She has normal affect. GENITOURINARY: No CVA tenderness. VASCULAR: 2+ pulses in the carotid pulses and pedal pulses. SKIN: No erythema or nodules SPINE: Shows normal curvature. EXTREMITIES: No Cyanosis and clubbing, no edema. LABORATORY DATA: White count of 20.6 and hemoglobin 10.8, neutrophils of 84%. INR is 1.1. He has a ABG which shows a pCO2 of 44, pH of 7.31, and lactate 3.7. Chemistry shows creatinine is 1.0. His magnesium is 1.6, and phosphorus is 2.2. Urine shows blood that is moderate, nitrites are positive and esterases are small. Chest x-ray shows no active disease. CT of the head done shows no acute finding. Renal ultrasound done shows unremarkable renal ultrasound. His EKG done shows heart rate in the 90s, there is left access deviation, no ST-T changes. ASSESSMENT: 1. Sepsis secondary to urine tract infection. 2. Diabetes type 2. 3. Hypomagnesemia. 4. Hypophosphatemia. 5. Hypertension. 6. Dyslipidemia. PLAN: The patient is currently comfortable. He is admitted to the hospital, he most likely has a sepsis secondary to UTI, we will need to rule out prostatitis, a PSA has been ordered by ID service. The patient is on glipizide for his diabetes; I will check his insulin with coverage, he is going to continue on Lipitor for dyslipidemia, added magnesium replacement, phosphorus replacement for his electrolyte abnormalities. He is on Norvasc for his hypertension, he is receiving Rocephin for antibiotic, this will be continued. We will await for the culture results. He is going to be on heart-healthy diet. Most likely has a gram-negative rods. We will await the result of final. I did speak to the patient's , [place] to give her update of his diagnoses and plan of care. We will await final culture result before discharging the patient to home. Also get physical therapy to see if the patient can ambulate. Brian Calzada MD
[2017-01-01] MEDS: Insulin Lispro (humaLOG) LOW Coverage SC SCH ×2 (07:26→12:04)
[2017-01-01 07:59] VITALS: PULSE 70; TEMP 98.3; O2SAT 98
[2017-01-01 08:29] LABS: ALB/GLOB RATIO 1.1 (1.1-1.8); ALBUMIN 3.6 g/dL (3.0-4.8); ALT/SGPT 49 U/L (7-56); AST/SGOT 44 U/L (15-59); BLOOD UREA NITROGEN 15 mg/dL (7-21); CALCIUM 9.3 mg/dL (8.4-10.5); GFR AFRICAN-AMERICAN > 60; GFR NON-AFRICAN AMERICAN > 60; MAGNESIUM 1.9 mg/dL (1.7-2.2)
[2017-01-01] MEDS: Potassium & Sodium Phosphate PO SCH (09:24)
[2017-01-01] MEDS: Magnesium Oxide 400 mg Tab UD PO SCH (09:25)
[2017-01-01] MEDS: Pantoprazole 40 mg EC Tab PO SCH (09:26)
[2017-01-01 09:29] VITALS: BP 153/66
[2017-01-01 10:23] LABS: HEMOGLOBIN 9.9 g/dL (14.0-18.0); MEAN CORPUSCULAR HGB CONC 32.2 g/dl (31.0-37.0); RBC 3.53 10^6/uL (3.5-6.1); RED CELL DISTRIBUTION WIDTH 17.6 % (11.5-14.5); WHITE BLOOD COUNT 8.1 10^3/ul (4.5-11.0)
[2017-01-01] MEDS: cefTRIAXone 1 gm 1 GM/100 ML BAG IVPB SCH (11:55)
[2017-01-01] MEDS ORDERED: ceFAZolin 1 gm in NS 1 GM/100 ML BAG IVPB SCH (14:00)
[2017-01-01 21:01] LABS: TOTAL PSA 31.9 ng/mL (<=4.0)
--- NOTE | 2017-01-02 08:26 | DS ---
HISTORY OF PRESENT ILLNESS: This is an 81-year-old male who was admitted to the hospital, was found to be septic secondary to a urinary tract infection. The patient has Gram-negative rods in his urine, but his blood cultures were negative. His white count is improved. He clinically says he is feeling better. He does not complain of any chest pain or any shortness of breath. I expect the final urine culture results to come back today, and as he is sensitive to p.o. antibiotic, we will change to *------* antibiotic and discharge the patient to home. I did speak to the patient's yesterday to give an update on the patient's diagnoses and plan of care. He is able to ambulate. He has no dizziness. PHYSICAL EXAMINATION: VITAL SIGNS: Temperature of 97.7, pulse of 65, blood pressure 150/70, and respirations 20. GENERAL: The patient is lying in bed, flat, comfortable. HEENT: No oral lesion. Anicteric sclerae. Moist mucosa. NECK: No JVD, adenopathy, or thyromegaly. CARDIOVASCULAR: S1 and S2, regular. No murmurs, rubs, or gallops. LUNGS: Clear to auscultation bilaterally. No wheeze, rales, or rhonchi. ABDOMEN: Bowel sounds are positive, soft, nontender and nondistended. EXTREMITIES: No cyanosis, clubbing or edema. ASSESSMENT: 1. Urinary tract infection secondary to Gram-negative rods. 2. Hypertension. 3. Dyslipidemia. 4. Diabetes type 2. 5. Hypomagnesemia. 6. Hypophosphatemia. PLAN: The patient is currently on Glucotrol for his diabetes, this will be continued. He is going to be on Lipitor for his dyslipidemia. The patient had low magnesium and low phosphorus levels, these were replaced. He is on Norvasc for his hypertension. He is receiving Rocephin for antibiotics. He is on heart-healthy diet. Brian Calzada MD
== END 2017-01-01 14:29 | disposition home or self-care (01) | DRG 872 ==
LOC: ED 09:34 → ERH 16:14 → 2RSO 19:17 → 5RSO 12-31 14:16
PROVIDERS: ADMIT Internal Medicine Nephrology; ATTEND Internal Medicine Nephrology
DX: A41.9 Sepsis, unspecified organism (principal); N39.0 Urinary tract infection, site not specified; B96.89 Other specified bacterial agents as the cause of diseases classified elsewhere; F03.90 Unspecified dementia, unspecified severity, without behavioral disturbance, psychotic disturbance, mood disturbance, and anxiety; E83.42 Hypomagnesemia; E11.9 Type 2 diabetes mellitus without complications; I10 Essential (primary) hypertension; E78.5 Hyperlipidemia, unspecified; K57.30 Diverticulosis of large intestine without perforation or abscess without bleeding; E83.39 Other disorders of phosphorus metabolism; K21.9 Gastro-esophageal reflux disease without esophagitis; F17.210 Nicotine dependence, cigarettes, uncomplicated; Z85.828 Personal history of other malignant neoplasm of skin; Z87.01 Personal history of pneumonia (recurrent)

== ENCOUNTER 2017-02-21 07:01 | Day surgery (SDC) | payer MEDICARE ==
[2017-02-12 11:20] VITALS: BMI 25.3
[2017-02-21 07:45] VITALS: TEMP 98
[2017-02-21] MEDS ORDERED: Lidocaine 2% Inj (20ml) ONE (09:09)
[2017-02-21] MEDS ORDERED: Etomidate 20 mg/10ml Inj IV ONE (09:10)
[2017-02-21] MEDS ORDERED: Sodium Chloride 0.9% 1,000 ML IV SCH (09:45)
[2017-02-21 09:57] VITALS: RESP 16
[2017-02-21 10:43] VITALS: BP 163/79; PULSE 72; O2SAT 98
== END 2017-02-21 11:09 | disposition home or self-care (01) ==
LOC: ENDO 07:01
PROVIDERS: ATTEND Internal Medicine Gastroenterology
DX: K31.819 Angiodysplasia of stomach and duodenum without bleeding (principal); K29.50 Unspecified chronic gastritis without bleeding; Z87.440 Personal history of urinary (tract) infections
CPT/HCPCS: 43239; 43250; 82948; 88305; 88342; J7040 ×2

== ENCOUNTER 2018-05-27 16:45 | Inpatient (IN) | payer MEDICARE ==
[2018-05-27 16:50] VITALS: BMI 21.7
--- NOTE | 2018-05-27 17:18 | ED PDOC ---
Arrival/HPI - General Chief Complaint: Upper Extremity Problem/Injury Time Seen by Provider: 05/27/18 16:51 Historian: Patient - History of Present Illness Narrative History of Present Illness (Text): 05/27/18 17:19 82 year old male whose past medical history includes hypertension, diabetes, pneumonia, and GERD, presents to the emergency department complaining of left shoulder pain s/p fall an hour prior to arrival. Patient states he was walking to his home when he fell and hit his left shoulder and head. Patient also notes secondary chronic cough. Patient denies fevers, chills, headache, dizziness, chest pain, shortness of breath, dyspnea on exertion, abdominal pain, nausea, vomiting, diarrhea, back pain, neck pain, or any other complaint. Time/Duration: 1 hour Symptom Onset: Gradual Symptom Course: Unchanged Context: Home Past Medical History - Provider Review Nursing Documentation Reviewed: Yes - Tetanus Immunization Tetanus Immunization: Unknown - Cardiac Hx Hypertension: Yes Hx Pacemaker: No - Pulmonary Hx Respiratory Disorders: Yes Hx Asthma: No Hx Bronchitis: No Hx Chronic Obstructive Pulmonary Disease (COPD): No Hx Emphysema: No Hx Pneumonia: Yes Hx Respiratory Aspiration: No Hx Respiratory Tract Infection: No Hx Sleep Apnea: No Hx Tuberculosis: No - Neurological Hx Paralysis: No - HEENT Hx HEENT Disorder: No Hx Blind: No Hx Cataracts: No Hx Deafness: No Hx Difficulty Chewing: No Hx Epistaxis: No Hx Glaucoma: No Hx Macular Degeneration: No - Renal Hx Renal Disorder: No Hx Dialysis: No Hx Kidney Stones: No Hx Neurogenic Bladder: No Hx Pyelonephritis: No Hx Renal Cancer: No Hx Renal Failure: No - Endocrine/Metabolic Hx Endocrine Disorders: Yes Hx Adrenal Cancer: No Hx Diabetes Insipidus: No Hx Diabetes Mellitus Type 1: No Hx Diabetes Mellitus Type 2: Yes Hx Hyperthyroidism: No Hx Hypothyroidism: No Hx Systemic Lupus Erythematosus: No - Hematological/Oncological Hx Blood Transfusions: No Hx Blood Transfusion Reaction: No - Integumentary Hx Dermatological Disorder: No Hx Basal Cell Carcinoma: No Hx Eczema: No Hx Melanoma: No Hx Psoriasis: No Hx Squamous Cell Carcinoma: No - Musculoskeletal/Rheumatological Hx Musculoskeletal Disorders: No - Gastrointestinal Hx Gastrointestinal Disorders: Yes Hx Colostomy: No Hx Crohn's Disease: No Hx Diverticulitis: No Hx Gall Bladder Disease: No Hx Gastroesophageal Reflux: Yes Hx Ileostomy: No Hx Liver Failure: No Hx Pancreatitis: No HX Swallowing Problems: No - Genitourinary/Gynecological Hx Genitourinary Disorders: No Hx Hematuria: No Hx Incontinence: No Hx Prostate Problems: No Hx Sexually Transmitted Diseases: No Hx Urinary Tract Infection: No - Psychiatric Hx Psychophysiologic Disorder: No Hx Anxiety: No Hx Bipolar Disorder: No Hx Depression: No Hx Emotional Abuse: No Hx Hallucinations: No Hx Panic Disorder: No Hx Post Traumatic Stress Disorder: No Hx Psychosis: No Hx Physical Abuse: No Hx Schizophrenia: No Hx Sexual Abuse: No Hx Substance Use: No - Surgical History Hx Amputation: No Hx Appendectomy: No Hx Cardiac Catheterization: No Hx Cholecystectomy: No Hx Coronary Stent: No Hx Gastric Bypass Surgery: No Hx Hysterectomy: No Hx Joint Replacement: No Hx Kidney Transplant: No Hx Liver Transplant: No Hx Mastectomy: No Hx Musculoskeletal Surgery: No Hx Open Heart Surgery: No Hx Orthopedic Surgery: No Hx Splenectomy: No Hx Valve Replacement: No - Anesthesia Hx Anesthesia Reactions: No Hx Malignant Hyperthermia: No - Suicidal Assessment Feels Threatened In Home Enviroment: No Family/Social History - Physician Review Nursing Documentation Reviewed: Yes Family/Social History: No Known Family HX Smoking Status: Former Smoker Hx Alcohol Use: No Hx Substance Use: No Allergies/Home Meds Allergies/Adverse Reactions: Allergies No Known Allergies Allergy (Verified 05/30/18 18:06) Home Medications: Home Meds Medication Instructions Recorded Confirmed GlipiZIDE [Glucotrol] 10 g PO BID 11/07/16 05/30/18 MetFORMIN [glucoPHAGE] 1,000 mg PO BID 11/07/16 05/30/18 Simvastatin 20 mg PO HS 11/07/16 05/30/18 amLODIPine [Norvasc] 5 mg PO BID 11/07/16 05/30/18 Docusate Sodium [Stool Softener] 1 tab PO BID 02/12/17 05/30/18 Ferrous Gluconate [Iron] 236 mg PO DAILY 05/30/18 05/30/18 Vit C/E/Zn/Coppr/Lutein/Zeaxan 1 each PO DAILY 05/30/18 05/30/18 [Preservision Areds 2 Softgel] Review of Systems - Physician Review All systems were reviewed & negative as marked: Yes - Review of Systems Constitutional: absent: Fevers Respiratory: Cough Cardiovascular: absent: Chest Pain Gastrointestinal: absent: Abdominal Pain, Diarrhea, Nausea, Vomiting Musculoskeletal: Other (left shoulder pain ). absent: Back Pain, Neck Pain Neurological: absent: Headache, Dizziness Physical Exam Vital Signs Reviewed: Yes Vital Signs Temp Pulse Resp BP Pulse Ox 05/27/18 16:46 98.3 F 60 18 192/82 H 96 Temperature: Afebrile Blood Pressure: Hypertensive Pulse: Regular Respiratory Rate: Normal Appearance: Positive for: Well-Appearing, Non-Toxic, Comfortable Pain Distress: None Mental Status: Positive for: Alert and Oriented X 3 - Systems Exam Head: Present: Atraumatic, Normocephalic Pupils: Present: PERRL Extroacular Muscles: Present: EOMI Conjunctiva: Present: Normal Mouth: Present: Moist Mucous Membranes Neck: Present: Normal Range of Motion Respiratory/Chest: Present: Clear to Auscultation, Good Air Exchange. No: Respiratory Distress, Accessory Muscle Use Cardiovascular: Present: Regular Rate and Rhythm, Normal S1, S2. No: Murmurs Abdomen: No: Tenderness, Distention, Peritoneal Signs Back: Present: Normal Inspection Upper Extremity: Present: Swelling, Deformity (mild deformity to the left shoulder), Other (tender to left shoulder with ecchymosis). No: Cyanosis Lower Extremity: Present: Normal Inspection. No: Edema Neurological: Present: GCS=15, CN II-XII Intact, Speech Normal Skin: Present: Warm, Dry, Normal Color. No: Rashes Psychiatric: Present: Alert, Oriented x 3, Normal Insight, Normal Concentration Medical Decision Making ED Course and Treatment: 05/27/18 17:28 Impression: 82 year old male who presents to the emergency department complaining of left shoulder pain. Plan: -- Head Ct w/o contrast -- Labs -- Chest X-ray -- Morphine -- Shoulder X-ray -- Reassess and disposition Prior Visits: Notes and results from previous visits were reviewed. Progress Notes: 05/27/18 19:34 Chest X-ray reviewed by me, shows: positive infiltrates and pneumo fracture. Consulted Dr. Elsi rolon with admission under his service and request consult with Dr. Siddiqui. 05/27/18 19:[address] w/o contrast reviewed, shows: IMPRESSION: 1. Diffuse age-appropriate cerebellar and cerebral atrophy. 2. Bilateral periventricular hypolucencies compatible with chronic white matter ischemic disease. 3. Sinusitis as above. 4. No evidence of acute intracranial pathology. - Lab Interpretations I have reviewed the lab results: Yes - Scribe Statement The provider has reviewed the documentation as recorded by the Scribruby Dutta Provider Scribe Attestation: All medical record entries made by the Scribe were at my direction and p ersonally dictated by me. I have reviewed the chart and agree that the record accurately reflects my personal performance of the history, physical exam, medical decision making, and the department course for this patient. I have also personally directed, reviewed, and agree with the discharge instructions and disposition. Disposition/Present on Arrival - Present on Arrival Any Indicators Present on Arrival: No History of DVT/PE: No History of Uncontrolled Diabetes: No Urinary Catheter: No History of Decub. Ulcer: No History Surgical Site Infection Following: None - Disposition Have Diagnosis and Disposition been Completed?: Yes Diagnosis: Pneumonia, Humeral fracture Disposition: HOSPITALIZED Disposition Time: 19:34 Patient Plan: Admission Condition: FAIR
[2018-05-27] MEDS ORDERED: Morphine 4 mg/ml ISec IVP STA ×2 (17:22→20:03)
[2018-05-27 17:46] LABS: BASO # 0.02 K/mm3 (0.0-2.0); BASO % 0.2 % (0.0-3.0); EOS # 0.3 (0.0-0.7); EOS % 2.6 % (1.5-5.0); GRAN # 7.16 (1.4-6.5); GRAN % 72.1 % (50.0-68.0); HEMOGLOBIN 12.2 g/dL (14.0-18.0); LYMPH # 1.9 (1.2-3.4); LYMPH % 18.6 % (22.0-35.0); MEAN CELL VOLUME 91.9 fl (80.0-105.0); MEAN CORPUSCULAR HEMOGLOBIN 29.8 pg (25.0-35.0); MEAN CORPUSCULAR HGB CONC 32.4 g/dl (31.0-37.0); MEAN PLATELET VOLUME 10.8 fl (7.0-11.0); MONO # 0.7 (0.1-0.6); MONO % 6.5 % (1.0-6.0); RBC 4.09 10^6/uL (3.5-6.1); RED CELL DISTRIBUTION WIDTH 17.8 % (11.5-14.5); WHITE BLOOD COUNT 9.9 10^3/uL (4.5-11.0)
[2018-05-27 19:14] LABS: INR 1.16; PARTIAL THROMBOPLASTIN TIME 28.8 Seconds (25.1-36.5); PROTHROMBIN TIME 13.3 SECONDS (9.4-12.5)
[2018-05-27 19:19] LABS: ALBUMIN 3.4 g/dL (3.0-4.8); ALT/SGPT 23 U/L (7-56); AST/SGOT 25 U/L (17-59); BLOOD UREA NITROGEN 29 mg/dL (7-21); CALCIUM 10.1 mg/dL (8.4-10.5); GFR NON-AFRICAN AMERICAN 53
[2018-05-27] MEDS ORDERED: cefTRIAXone 1 gm 1 GM/100 ML BAG IVPB STA (20:49)
[2018-05-27] MEDS: Insulin Reg-LOW-Coverage SC SCH (23:36)
--- NOTE | 2018-05-28 08:08 | CT ---
Date of service: 05/27/2018 PROCEDURE: CT HEAD WITHOUT CONTRAST. HISTORY: r/o bleed COMPARISON: 12/30/2016 TECHNIQUE: Axial computed tomography images were obtained through the head/brain without intravenous contrast. Radiation dose: Total exam DLP = 872.95 mGy-cm. This CT exam was performed using one or more of the following dose reduction techniques: Automated exposure control, adjustment of the mA and/or kV according to patient size, and/or use of iterative reconstruction technique. FINDINGS: HEMORRHAGE: No intracranial hemorrhage. BRAIN: No mass effect or edema. Chronic microvascular changes are seen as well as age-appropriate atrophy VENTRICLES: Unremarkable. No hydrocephalus. CALVARIUM: Unremarkable. PARANASAL SINUSES: Unremarkable as visualized. No significant inflammatory changes. MASTOID AIR CELLS: Unremarkable as visualized. No inflammatory changes. OTHER FINDINGS: The report concurs with the preliminary [facility] report IMPRESSION: No acute intracranial findings
--- NOTE | 2018-05-28 08:41 | RAD ---
Date of service: 05/27/2018 PROCEDURE: Radiographs of the left shoulder HISTORY: s/p fall r/o fx COMPARISON: No prior. FINDINGS: BONES: There is an acute nondisplaced fracture in the neck of the humerus with 15 mm distraction of fracture fragments. Bone alignment is normal. 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 SOFT TISSUES: Normal. OTHER FINDINGS: None. IMPRESSION: Acute nondisplaced fracture in the neck of the humerus with 15 mm distraction of fracture fragments. No dislocation. The final report is tagged to the PA review folder.
[2018-05-28] MEDS ORDERED: Oxycodone/Acetaminophen 5/325 mg Tab PO PRN (08:45)
[2018-05-28] MEDS ORDERED: Morphine 4 mg/ml ISec IVP PRN (08:45)
--- NOTE | 2018-05-28 08:45 | RAD ---
Date of service: 05/27/2018 PROCEDURE: CHEST RADIOGRAPH, 1 VIEW HISTORY: productive cough COMPARISON: 12/30/2016 FINDINGS: LUNGS: The lungs are well inflated. There is dense consolidation in the left lower lobe. There is also patchy airspace disease in the left suprahilar region. The right lung is clear. PLEURA: Small left pleural effusion. No pneumothorax. CARDIOVASCULAR: The heart is normal in size. There are aortic atherosclerotic calcifications present. OSSEOUS STRUCTURES: Within normal limits for the patient's age. VISUALIZED UPPER ABDOMEN: Normal. OTHER FINDINGS: None. IMPRESSION: Multifocal pneumonia in the left lung, worse in the lower lobe. Small left pleural effusion. Follow-up after medical management is recommended to ensure complete resolution.
[2018-05-28] MEDS: Pantoprazole 40 mg EC Tab PO SCH (09:54)
[2018-05-28] MEDS: Insulin Reg-LOW-Coverage SC SCH ×4 (10:06→21:49)
--- NOTE | 2018-05-28 11:23 | CP.PCM.APN ---
Subjective - Date & Time of Evaluation Date of Evaluation: 05/28/18 Time of Evaluation: 11:20 - Subjective Subjective: Pt seen and examined at bedside. +productive cough w/ white phlegm. Denies chest pain. + mild shortness of breath on exertion. He is also c/o pain on L shoulder. Objective - Vital Signs/Intake and Output Vital Signs (last 24 hours): Temp Pulse Resp BP Pulse Ox 97.7 F 59 L 18 158/67 H 100 05/28/18 06:00 05/28/18 09:54 05/28/18 06:00 05/28/18 09:54 05/28/18 06:00 Intake and Output: 05/28/18 05/28/18 06:59 18:59 Intake Total 0 Balance 0 - Medications Medications: Current Medications Amlodipine Besylate (Norvasc) 5 mg PO BID [facility] Last Admin: 05/28/18 09:54 Dose: 5 mg Atorvastatin Calcium (Lipitor) 10 mg PO HS [facility] Last Admin: 05/27/18 23:36 Dose: Not Given Docusate Sodium (Colace) 100 mg PO DAILY [facility] Last Admin: 05/28/18 09:54 Dose: 100 mg Insulin Human Regular (Humulin R Low) [address] [facility]; Protocol Last Admin: 05/28/18 10:06 Dose: 1 unit Morphine Sulfate (Morphine) 4 mg IVP Q4H PRN PRN Reason: Pain, severe (8-10) Oxycodone/Acetaminophen (Percocet 5/325 Mg Tab) 1 tab PO Q4H PRN PRN Reason: Pain, moderate (4-7) Stop: 05/31/18 08:46 Pantoprazole Sodium (Protonix Ec Tab) 40 mg PO DAILY [facility] Last Admin: 05/28/18 09:54 Dose: 40 mg - Labs Labs: 05/27/18 17:30 05/27/18 17:30 PT 13.3 SECONDS (9.4-12.5) H 05/27/18 18:55 INR 1.16 05/27/18 18:55 APTT 28.8 Seconds (25.1-36.5) 05/27/18 18:55 - Constitutional Appears: Well, No Acute Distress - Head Exam Head Exam: ATRAUMATIC - Eye Exam Eye Exam: Normal appearance - ENT Exam ENT Exam: Normal Exam - Neck Exam Neck Exam: Full ROM - Respiratory Exam Respiratory Exam: Rhonchi - Cardiovascular Exam Cardiovascular Exam: REGULAR RHYTHM, +S1, +S2 - GI/Abdominal Exam GI & Abdominal Exam: Soft, Normal Bowel Sounds - Rectal Exam Rectal Exam: Deferred - Extremities Exam Additional comments: L shoulder with splint - Neurological Exam Neurological Exam: Alert, Awake, Oriented x3 Assessment and Plan - Assessment and Plan (Free Text) Assessment: Pt is an 82 y.o. male with pmhx of HTN, DM, pneumonia, and GERD who presented in ED for L shoulder pain s/p fall and cough [id number]. He is currently admitted for acute L humeral fx and pneumonia. Impressions Chest X-Ray 05/27/18 17:18 IMPRESSION: Multifocal pneumonia in the left lung, worse in the lower lobe. Small left pleural effusion. Follow-up after medical management is recommended to ensure complete resolution. Shoulder X-Ray 05/27/18 17:18 IMPRESSION: Acute nondisplaced fracture in the neck of the humerus with 15 mm distraction of fracture fragments. No dislocation. The final report is tagged to the PA review folder. Head CT 05/27/18 17:21 IMPRESSION: No acute intracranial findings Plan: L shoulder w/ splint Pain management Ortho and ID on consult Blood cx/procalcitonin pending On Zithromax and Rocephin IV Meds per MAR Pending physical therapy Will continue to follow
[2018-05-28] MEDS: cefTRIAXone 1 gm 1 GM/100 ML BAG IVPB SCH (12:22)
[2018-05-28] MEDS: Azithromycin 500MG/NS 250ml 500 MG/250 ML BAG IVPB SCH (12:22)
--- NOTE | 2018-05-28 13:13 | CON ---
DATE: 05/28/2018ISTORY OF PRESENT ILLNESS: The patient is an 82-year-old male, who was walking outside and slipped and fell, landed on his shoulder. X-rays showed minimally displaced fracture, proximal left humerus, not intraarticular with associated AC joint arthritis. Impaired neurovascular status, and he is right-hand dominant, walks with a cane. Also, we could treat this fracture with conservative therapy with a collar and a cuff or a left arm sling and the other necessity is to sleep, sitting up, so he does not roll on the left shoulder. While he is in the hospital, the ring on his left hand was quite tight, so I took it off, and put it on the right hand, so the ring finger does not get compromised, so we will treat this shoulder fracture of the proximal left humerus conservatively with four to six weeks of collar and cuff or a sling and follow him closely in the office once he goes home. Orthopedically, he can go home anytime, but he is in the hospital for medical reasons also. DIAGNOSIS: Left proximal humerus fracture, minimally displaced compatible with conservative therapy, he is up out of bed and to closely observe him until the fracture heals, and it requires no weightbearing and no range of motion on that left shoulder. The arm is slightly . Jose Siddiqui DO
--- NOTE | 2018-05-28 13:34 | CP.PCM.CON ---
History of Present Illness - History of Present Illness History of Present Illness: ID Consult Note 82 year old male with past medical history of A-fib, DM2, Dyslipidemia, Diverticulosis, gastric/duodenal ulcer, and squamous cell cancer of the scalp presents to the hospital after sustaining a fall at home. Patient fell after he tripped over a ledge and hit his shoulder. He presented to the hospital afterwards. Patient states he did not lose consciousness at that time, nor had any bladder/bowel incontinence. Patient also mentions having a progressively worse shortness of breath and cough over the last 2 weeks. Patient states cough is productive with clear mucous. He states he did not take any medications for h is symptoms. He denies any sick contacts or recent travel. Denies chest pain, nausea, vomiting, diarrhea, fever, chills, dysuria, numbness, tingling, changes in vision. \ PMH: A-fib, DM2, Dyslipidemia, Diverticulosis, gastric/duodenal ulcer, and squamous cell cancer of the scalp Surgical hx: Colostomy?, resection of SCC of scalp Family Hx: Cancer, unknown which type Social Hx: Former smoker, quit 20 years ago. Smoked 1/2 ppd. Denies alcohol or illicit drug use Allergies: NKDA Medications: Reviewed, as per MAR Review of Systems - Review of Systems Review of Systems: 12 point ROS as per HPI Past Patient History - Tetanus Immunizations Tetanus Immunization: Unknown - Past Medical History & Family History Past Medical History?: Yes - Past Social History Smoking Status: Former Smoker - CARDIAC Hx Hypercholesterolemia: Yes Hx Hypertension: Yes Hx Pacemaker: No - PULMONARY Hx Asthma: No Hx Bronchitis: No Hx Chronic Obstructive Pulmonary Disease (COPD): No Hx Emphysema: No Hx Pneumonia: Yes Hx Respiratory Aspiration: No Hx Respiratory Tract Infection: No Hx Sleep Apnea: No Hx Tuberculosis: No - NEUROLOGICAL Hx Neurological Disorder: No Hx Alzheimer's Disease: No HX Cerebrovascular Accident: No Hx Dementia: No Hx Dizziness: No Hx Meningitis: No Hx Migraine: No Hx Parkinson's Disease: No Hx Seizures: No Hx Transient Ischemic Attacks (TIA): No - HEENT Hx HEENT Problems: No Hx Blind: No Hx Cataracts: No Hx Deafness: No Hx Difficulty Chewing: No Hx Epistaxis: No Hx Glaucoma: No Hx Macular Degeneration: No - RENAL Hx Chronic Kidney Disease: No Hx Dialysis: No Hx Kidney Stones: No Hx Neurogenic Bladder: No Hx Pyelonephritis: No Hx Renal (Kidney) Cancer: No Hx Renal Failure: No - ENDOCRINE/METABOLIC Hx Endocrine Disorders: Yes Hx Adrenal Cancer: No Hx Diabetes Insipidus: No Hx Diabetes Mellitus Type 1: No Hx Diabetes Mellitus Type 2: Yes Hx Hyperthyroidism: No Hx Hypothyroidism: No Hx Systemic Lupus Erythematosus: No - HEMATOLOGICAL/ONCOLOGICAL Hx Blood Disorders: No Hx AIDS: No Hx Anemia: No Hx Cancer: No Hx Chemotherapy: No Hx Cirrhosis: No Hx Hepatitis A: No Hx Hepatitis B: No Hx Hepatitis C: No Hx Human Immunodeficiency Virus (HIV): No Hx Metastesis: No Hx Shingles: No Hx Unexplained Bleeding: No - INTEGUMENTARY Hx Dermatological Problems: No Hx Basil Cell: No Hx Eczema: No Hx Melanoma: No Hx Psoriasis: No Hx Squamous Cell: No - MUSCULOSKELETAL/RHEUMATOLOGICAL Hx Musculoskeletal Disorders: No Hx Falls: Yes - GASTROINTESTINAL Hx Gastrointestinal Disorders: Yes Hx Colostomy: No Hx Crohn's Disease: No Hx Diverticulitis: No Hx Gall Bladder Disease: No Hx Gastroesophageal Reflux: Yes Hx Ileostomy: No Hx Liver Failure: No Hx Pancreatitis: No HX Swallowing Problems: No - GENITOURINARY/GYNECOLOGICAL Hx Genitourinary Disorders: No Hx Hematuria: No Hx Incontinence: No Hx Prostate Problems: No Hx Sexually Transmitted Disorders: No Hx Urinary Tract Infection: No - PSYCHIATRIC Hx Psychophysiologic Disorder: No Hx Anxiety: No Hx Bipolar Disorder: No Hx Depression: No Hx Emotional Abuse: No Hx Hallucinations: No Hx Panic Symptoms: No Hx Post Traumatic Stress Disorder: No Hx Psychosis: No Hx Physical Abuse: No Hx Schizophrenia: No Hx Sexual Abuse: No - SURGICAL HISTORY Hx Amputation: No Hx Appendectomy: No Hx Cardiac Catheterization: No Hx Cholecystectomy: No Hx Coronary Stent: No Hx Gastric Bypass Surgery: No Hx Hysterectomy: No Hx Joint Replacement: No Hx Kidney Transplant: No Hx Liver Transplant: No Hx Mastectomy: No Hx Musculoskeletal Surgery: No Hx Open Heart Surgery: No Hx Orthopedic Surgery: No Hx Splenectomy: No Hx Valve Replacement: No - ANESTHESIA Hx Anesthesia Reactions: No Hx Malignant Hyperthermia: No Meds Allergies/Adverse Reactions: Allergies Allergy/AdvReac Type Severity Reaction Status Date / Time No Known Allergies Allergy Verified 05/27/18 16:54 - Medications Medications: Current Medications Amlodipine Besylate (Norvasc) 5 mg PO BID [facility] Last Admin: 05/28/18 09:54 Dose: 5 mg Atorvastatin Calcium (Lipitor) 10 mg PO HS [facility] Last Admin: 05/27/18 23:36 Dose: Not Given Docusate Sodium (Colace) 100 mg PO DAILY [facility] Last Admin: 05/28/18 09:54 Dose: 100 mg Ceftriaxone Sodium (Rocephin 1 Gram Ivpb) 1 gm in 100 mls @ 100 mls/hr IVPB DAILY [facility]; Protocol Last Admin: 05/28/18 12:22 Dose: 100 mls/hr Azithromycin (Zithromax 500mg In Ns) 500 mg in 250 mls @ 167 mls/hr IVPB DAILY [facility]; Protocol Last Admin: 05/28/18 12:22 Dose: 167 mls/hr Insulin Human Regular (Humulin R Low) 0 units SC ACHS [facility]; Protocol Last Admin: 05/28/18 10:06 Dose: 1 unit Morphine Sulfate (Morphine) 4 mg IVP Q4H PRN PRN Reason: Pain, severe (8-10) Oxycodone/Acetaminophen (Percocet 5/325 Mg Tab) 1 tab PO Q4H PRN PRN Reason: Pain, moderate (4-7) Stop: 05/31/18 08:46 Pantoprazole Sodium (Protonix Ec Tab) 40 mg PO DAILY [facility] Last Admin: 05/28/18 09:54 Dose: 40 mg Physical Exam - Constitutional Appears: Non-toxic, No Acute Distress - Head Exam Head Exam: ATRAUMATIC, NORMAL INSPECTION, NORMOCEPHALIC - Eye Exam Eye Exam: EOMI, Normal appearance - ENT Exam ENT Exam: Mucous Membranes Moist, Normal Exam - Respiratory Exam Respiratory Exam: Decreased Breath Sounds, NORMAL BREATHING PATTERN. absent: Rales, Rhonchi, Wheezes - Cardiovascular Exam Cardiovascular Exam: RRR, +S1, +S2 - GI/Abdominal Exam GI & Abdominal Exam: Normal Bowel Sounds, Soft. absent: Tenderness - Extremities Exam Extremities exam: Positive for: pedal edema Additional comments: Left arm in sling, no deformity noted - Neurological Exam Neurological exam: Alert, Oriented x3 - Psychiatric Exam Psychiatric exam: Normal Affect, Normal Mood - Skin Skin Exam: Intact, Normal Color, Warm Results - Vital Signs Recent Vital Signs: Last Vital Signs Temp 97.7 F 05/28/18 06:00 Pulse 59 L 05/28/18 09:54 Resp 18 05/28/18 06:00 BP 158/67 H 05/28/18 09:54 Pulse Ox 100 05/28/18 06:00 - Labs Result Diagrams: 05/27/18 17:30 05/27/18 17:30 Labs: Laboratory Results - last 24 hr 05/27/18 05/27/18 05/27/18 17:30 17:30 18:55 WBC 9.9 RBC 4.09 Hgb 12.2 L D Hct 37.6 L MCV 91.9 D MCH 29.8 MCHC 32.4 RDW 17.8 H Plt Count 334 MPV 10.8 Gran % 72.1 H Lymph % (Auto) 18.6 L [place] % (Auto) 6.5 H Eos % (Auto) 2.6 Baso % (Auto) 0.2 Gran # 7.16 H Lymph # (Auto) 1.9 [place] # (Auto) 0.7 H Eos # (Auto) 0.3 Baso # (Auto) 0.02 PT 13.3 H INR 1.16 APTT 28.8 Sodium 142 Potassium 4.1 Chloride 110 H Carbon Dioxide 24 Anion Gap 13 BUN 29 H Creatinine 1.3 Est GFR ( Amer) > 60 Est GFR (Non-Af Amer) 53 POC Glucose (mg/dL) Random Glucose 195 H Calcium 10.1 Phosphorus Magnesium Total Bilirubin 0.5 AST 25 ALT 23 Alkaline Phosphatase 115 Total Protein 6.8 Albumin 3.4 Globulin 3.4 Albumin/Globulin Ratio 1.0 L Influenza Typ A,B (EIA) 05/27/18 05/27/18 05/27/18 20:20 20:50 23:18 WBC RBC Hgb Hct MCV MCH MCHC RDW Plt Count MPV Gran % Lymph % (Auto) [place] % (Auto) Eos % (Auto) Baso % (Auto) Gran # Lymph # (Auto) [place] # (Auto) Eos # (Auto) Baso # (Auto) PT INR APTT Sodium Potassium Chloride Carbon Dioxide Anion Gap BUN Creatinine Est GFR ( Amer) Est GFR (Non-Af Amer) POC Glucose (mg/dL) 188 H Random Glucose Calcium Phosphorus 2.7 Magnesium 1.7 Total Bilirubin AST ALT Alkaline Phosphatase Total Protein Albumin Globulin Albumin/Globulin Ratio Influenza Typ A,B (EIA) Negative for flu a/b 05/28/18 05/28/18 06:45 11:00 WBC RBC Hgb Hct MCV MCH MCHC RDW Plt Count MPV Gran % Lymph % (Auto) [place] % (Auto) Eos % (Auto) Baso % (Auto) Gran # Lymph # (Auto) [place] # (Auto) Eos # (Auto) Baso # (Auto) PT INR APTT Sodium Potassium Chloride Carbon Dioxide Anion Gap BUN Creatinine Est GFR ( Amer) Est GFR (Non-Af Amer) POC Glucose (mg/dL) 173 H 222 H Random Glucose Calcium Phosphorus Magnesium Total Bilirubin AST ALT Alkaline Phosphatase Total Protein Albumin Globulin Albumin/Globulin Ratio Influenza Typ A,B (EIA) Assessment & Plan - Assessment and Plan (Free Text) Plan: Community acquired pneumonia Left nondisplaced fracture of the neck of the humerus Hx of A-fib Hx of DM2 Hx of Dyslipidemia Hx of Diverticulosis Hx of gastric duodenal ulcer Hx of Squamous cell carcinoma of the scalp Plan: Continue Rocephin and Azithromycin at this time. Chest x-ray reviewed. Will obtain legionella urine antigen. Will continue to follow blood cultures and procalcitonin. Patient to be seen by orthopedics. Continue current medical management. [facility], PGY-3
--- NOTE | 2018-05-28 18:04 | HP ---
DATE OF EXAM: 05/28/2018 CHIEF COMPLAINT AND HISTORY OF PRESENT ILLNESS: This is an 82-year-old male, who is coming into the hospital after he had a fall. The patient had pain in the left shoulder after he had a fall. The patient says that he is not able to move his left arm. He denies any fevers or chills. No syncope. No loss of consciousness. No urinary incontinence. No bowel or bladder incontinence. No tongue biting. The patient has no abdominal pain or back pain, no dysuria or frequency, no nocturia. He says the pain is worse when he moves, it is about 7 out of 10. All other review of symptoms are within normal limits except as mentioned. PAST MEDICAL HISTORY: 1. Diabetes type 2. 2. Hypertension. 3. Dyslipidemia. 4. Gastric/duodenal ulcers. 5. 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 6. Diverticulosis. ALLERGIES: NO KNOWN DRUG ALLERGIES. HOME MEDICATIONS: They have been reviewed on the JUL. He is on metformin, iron, glipizide, Colace, amlodipine, Protonix, and simvastatin. PAST SURGICAL HISTORY: EGD in October 2016, squamous cell excision in August 2015. FAMILY HISTORY: Noncontributory. SOCIAL HISTORY: He used to work as a teacher. He likes to spend his anderson in [place]. He was to go to [place] in 2 days. He smokes about 10 cigarettes a day. Drinks socially. Denies drug use. PHYSICAL EXAMINATION: VITAL SIGNS: He has a temperature of 97.7, pulse of 59, blood pressure is 158/67, respirations 18, and O2 saturation is 100%. Height is 6 feet, weight is 160 pounds, BMI is 21.7. GENERAL: The patient is lying in bed, comfortable, and in no acute distress. HEENT: Atraumatic and normocephalic. Anicteric sclerae. Moist mucosa. [place] conjunctivae. No oral lesions. NECK: No JVD, anterior and posterior adenopathy, thyromegaly, or bruits. CARDIOVASCULAR: S1 and S2 regular. No murmurs, rubs or gallops. LUNGS: Clear to auscultation bilaterally. No wheezes, rales, or rhonchi. ABDOMEN: Bowel sounds are positive. Soft, nontender and nondistended. No hepatosplenomegaly. No rebound and no guarding EXTREMITIES: No cyanosis, clubbing, or edema. In the left arm, there is a decreased range of motion. He has sit in a sling, unable to move because of the patient's pain and fracture. NEUROLOGIC: No facial asymmetry. Tongue is midline. No uvula deviation. Power is 5/5 upper extremities and lower extremities. Sensation intact in upper extremities and lower extremities. PSYCHIATRIC: He is awake, alert and oriented x3. No anxiety or depression. He has normal affect. GENITOURINARY: No CVA tenderness. VASCULAR: 2+ pulses in the carotid pulses and pedal pulses. SKIN: No erythema or nodules SPINE: Shows normal curvature. LABORATORY DATA: White count of 9.9, hemoglobin 12.2, platelet count is 334. INR is 1.1. Chemistry shows a sodium of 142, potassium is 4.1, and creatinine is 1.3. He has a calcium of 10.1, albumin is 3.4. Serology shows influenza is negative. His CT of the head done shows no acute intracranial findings. In the CT of head, he also has bilateral periventricular hyperlucency compatible with chronic white matter ischemic changes. Left humerus fracture on x-ray that I reviewed. Chest x-ray done shows no infiltrates. ASSESSMENT: 1. Left humerus fracture. 2. Diabetes type 2. 3. Hypertension. 4. Fall. 5. Dyslipidemia. 6. Diverticulosis. 7. 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 8. Tobacco use. PLAN: The patient is currently comfortable. He has pain when he moves. I will place him on pain medications. The patient is on Protonix daily. He is on Norvasc for hypertension. He is on Lipitor for his dyslipidemia. I will hold his oral hypoglycemics in case he needs to go for surgery. I will get Dr. Siddiqui for evaluation for his surgery. The patient may need physical therapy. We will wait for input from the specialist. Brian Calzada MD
[2018-05-28] MEDS ORDERED: cefTRIAXone 1 gm 1 GM/100 ML BAG IVPB ONE (19:11)
[2018-05-28 22:34] VITALS: RESP 18
[2018-05-29] MEDS ORDERED: Albuterol-Ipratrop 3 mg / 0.5 (3 ml) UD IH STA (00:05)
[2018-05-29] MEDS: Insulin Reg-LOW-Coverage SC SCH ×3 (07:30→17:06)
[2018-05-29 07:36] LABS: HEMOGLOBIN 11.6 g/dL (14.0-18.0); MEAN CELL VOLUME 91.7 fl (80.0-105.0); MEAN CORPUSCULAR HEMOGLOBIN 29.1 pg (25.0-35.0); MEAN CORPUSCULAR HGB CONC 31.8 g/dl (31.0-37.0); MEAN PLATELET VOLUME 10.8 fl (7.0-11.0); RBC 3.98 10^6/uL (3.5-6.1); RED CELL DISTRIBUTION WIDTH 17.4 % (11.5-14.5); WHITE BLOOD COUNT 10.4 10^3/uL (4.5-11.0)
[2018-05-29 08:10] LABS: BLOOD UREA NITROGEN 22 mg/dL (7-21); CALCIUM 10.3 mg/dL (8.4-10.5); GFR NON-AFRICAN AMERICAN > 60
[2018-05-29] MEDS: Pantoprazole 40 mg EC Tab PO SCH (09:21)
[2018-05-29] MEDS: cefTRIAXone 1 gm 1 GM/100 ML BAG IVPB SCH (09:22)
[2018-05-29] MEDS: Azithromycin 500MG/NS 250ml 500 MG/250 ML BAG IVPB SCH (09:22)
[2018-05-29] MEDS ORDERED: Sod Polystyrene Sulf 15 gm/60 ml Susp PR ONE (09:36)
--- NOTE | 2018-05-29 09:54 | CP.PCM.PN ---
<Boo Kat - Last Filed: 05/29/18 14:07> Subjective - Date & Time of Evaluation Date of Evaluation: 05/29/18 Time of Evaluation: 09:30 - Subjective Subjective: Patient seen and examined at bedside. Patient with no new complaints. Admits to still having cough. Denies chest pain, nausea, vomiting, diarrhea, fever, chills. Objective - Vital Signs/Intake and Output Vital Signs (last 24 hours): Temp Pulse Resp BP Pulse Ox 98.1 F 72 18 149/69 96 05/28/18 22:33 05/28/18 22:33 05/28/18 22:33 05/28/18 22:33 05/28/18 22:33 Intake and Output: 05/29/18 05/29/18 06:59 18:59 Intake Total 480 Output Total 100 Balance 380 - Medications Medications: Current Medications Amlodipine Besylate (Norvasc) 5 mg PO BID [facility] Last Admin: 05/29/18 09:21 Dose: 5 mg Atorvastatin Calcium (Lipitor) 10 mg PO [facility] Last Admin: 05/28/18 21:50 Dose: Not Given Docusate Sodium (Colace) 100 mg PO DAILY [facility] Last Admin: 05/29/18 09:21 Dose: 100 mg Ceftriaxone Sodium (Rocephin 1 Gram Ivpb) 1 gm in 100 mls @ 100 mls/hr IVPB DAILY [facility]; Protocol Last Admin: 05/29/18 09:22 Dose: 100 mls/hr Azithromycin (Zithromax 500mg In Ns) 500 mg in 250 mls @ 167 mls/hr IVPB DAILY [facility]; Protocol Last Admin: 05/29/18 09:22 Dose: 167 mls/hr Insulin Human Regular (Humulin R Low) 0 units SC ACHS [facility]; Protocol Last Admin: 05/29/18 07:30 Dose: Not Given Morphine Sulfate (Morphine) 4 mg IVP Q4H PRN PRN Reason: Pain, severe (8-10) Oxycodone/Acetaminophen (Percocet 5/325 Mg Tab) 1 tab PO Q4H PRN PRN Reason: Pain, moderate (4-7) Stop: 05/31/18 08:46 Pantoprazole Sodium (Protonix Ec Tab) 40 mg PO DAILY [facility] Last Admin: 05/29/18 09:21 Dose: 40 mg - Labs Labs: 05/29/18 07:00 05/29/18 07:00 PT 13.3 SECONDS (9.4-12.5) H 05/27/18 18:55 INR 1.16 05/27/18 18:55 APTT 28.8 Seconds (25.1-36.5) 05/27/18 18:55 - Constitutional Appears: Non-toxic, No Acute Distress - Head Exam Head Exam: ATRAUMATIC, NORMAL INSPECTION, NORMOCEPHALIC - Respiratory Exam Respiratory Exam: Decreased Breath Sounds, NORMAL BREATHING PATTERN. absent: Rales, Rhonchi, Wheezes - Cardiovascular Exam Cardiovascular Exam: RRR, +S1, +S2 - GI/Abdominal Exam GI & Abdominal Exam: Soft, Normal Bowel Sounds. absent: Tenderness - Extremities Exam Additional comments: Left arm in sling, no deformity - Neurological Exam Neurological Exam: Alert, Awake, Oriented x3 - Psychiatric Exam Psychiatric exam: Normal Affect, Normal Mood - Skin Skin Exam: Intact, Normal Color, Warm Assessment and Plan - Assessment and Plan (Free Text) Plan: Community acquired pneumonia Left nondisplaced fracture of the neck of the humerus Hx of A-fib Hx of DM2 Hx of Dyslipidemia Hx of Diverticulosis Hx of gastric duodenal ulcer Hx of Squamous cell carcinoma of the scalp Plan: Continue Rocephin and Azithromycin for 5-7 days Blood cultures negative Legionella negative Procalcitonin low Continue current medical regimen [facility], PGY-3 <Ac Wilkins S - Last Filed: 05/29/18 19:41> Objective - Vital Signs/Intake and Output Vital Signs (last 24 hours): Temp Pulse Resp BP Pulse Ox 97.9 F 71 18 135/60 94 L 05/29/18 14:00 05/29/18 14:00 05/29/18 14:00 05/29/18 17:06 05/29/18 14:00 - Medications Medications: Current Medications Amlodipine Besylate (Norvasc) 5 mg PO BID [facility] Last Admin: 05/29/18 17:06 Dose: 5 mg Atorvastatin Calcium (Lipitor) 10 mg PO HS [facility] Last Admin: 05/28/18 21:50 Dose: Not Given Azithromycin (Zithromax) 500 mg PO DAILY [facility] Docusate Sodium (Colace) 100 mg PO DAILY [facility] Last Admin: 05/29/18 09:21 Dose: 100 mg Ceftriaxone Sodium (Rocephin 1 Gram Ivpb) 1 gm in 100 mls @ 100 mls/hr IVPB DAILY [facility]; Protocol Last Admin: 05/29/18 09:22 Dose: 100 mls/hr Insulin Human Regular (Humulin R Low) 0 units SC ACHS [facility]; Protocol Last Admin: 05/29/18 17:06 Dose: Not Given Morphine Sulfate (Morphine) 4 mg IVP Q4H PRN PRN Reason: Pain, severe (8-10) Oxycodone/Acetaminophen (Percocet 5/325 Mg Tab) 1 tab PO Q4H PRN PRN Reason: Pain, moderate (4-7) Stop: 05/31/18 08:46 Pantoprazole Sodium (Protonix Ec Tab) 40 mg PO DAILY [facility] Last Admin: 05/29/18 09:21 Dose: 40 mg - Labs Labs: 05/29/18 07:00 05/29/18 07:00 PT 13.3 SECONDS (9.4-12.5) H 05/27/18 18:55 INR 1.16 05/27/18 18:55 APTT 28.8 Seconds (25.1-36.5) 05/27/18 18:55 Assessment and Plan - Assessment and Plan (Free Text) Plan: Infectious diseases Attending Physician Attestation Patient seen and examined, discussed with medical front desk coordinator. I have reviewed the patient's history of present illness, past medical, social, personal and family histories, pertinent physical exam findings, course so far in this hospital admission, pertinent laboratory and imaging results. I agree with the above findings, assessment and plan. In addition, continue Rocephin and Zithromax for community-acquired pneumonia, to complete 5-7 days of total therapy.
--- NOTE | 2018-05-29 11:14 | PN ---
DATE: 05/29/2018 SUBJECTIVE: The patient has no complaints of any chest pain. No shortness of breath. No headaches or dizziness. PHYSICAL EXAMINATION: VITAL SIGNS: Temperature is 98.1, pulse of 72, blood pressure is 149/69, and respirations 18. GENERAL: The patient is lying in bed, flat, comfortable. HEENT: No oral lesion. Anicteric sclerae. Moist mucosa. NECK: No JVD, adenopathy, or thyromegaly. CARDIOVASCULAR: S1 and S2, regular. No murmurs, rubs, or gallops. LUNGS: Clear to auscultation bilaterally. No wheeze, rales, or rhonchi. ABDOMEN: Bowel sounds are positive, soft, nontender and nondistended. EXTREMITIES: no cyanosis, clubbing or edema. LABS: Potassium is 5.6, white count of 10.4, hemoglobin 11.6. ASSESSMENT: 1. Community-acquired pneumonia. 2. Left humerus fracture. 3. Diabetes type 2. 4. Hypertension. 5. Fall. 6. Dyslipidemia. 7. Diverticulosis. 8. Squamous cell carcinoma of the scalp. 9. History of tobacco use. PLAN: The patient is currently comfortable. He is on Lipitor for dyslipidemia and Motrin for pain. He is on Norvasc for hypertension. The patient is on Percocet for pain as well. He is on Protonix daily. He is on Rocephin and Zithromax for antibiotics. He is on a heart healthy diet. The patient has blood cultures that have been negative. He is not going to require surgery. He prefers to go to [place] through the [facility] there for further management of his left humerus fracture. Brian Calzada MD
[2018-05-30] MEDS: Insulin Reg-LOW-Coverage SC SCH ×3 (01:23→12:02)
[2018-05-30 08:09] LABS: BLOOD UREA NITROGEN 17 mg/dL (7-21); CALCIUM 9.7 mg/dL (8.4-10.5); GFR NON-AFRICAN AMERICAN > 60
[2018-05-30] MEDS: Pantoprazole 40 mg EC Tab PO SCH (09:09)
[2018-05-30] MEDS: cefTRIAXone 1 gm 1 GM/100 ML BAG IVPB SCH (09:28)
[2018-05-30] MEDS ORDERED: Insulin Regular 1 UNITS/0.01 ML ML SC STA (11:06)
[2018-05-30 15:20] VITALS: BP 151/82; PULSE 78; TEMP 97.5; O2SAT 95
--- NOTE | 2018-05-30 21:11 | DS ---
This is Dr. Shweta Merino covering for Dr. Gill. HISTORY OF PRESENT ILLNESS: The patient is an 82-year-old, states he is visiting from [place]. He has been having some cough congestion, productive cough for almost 2 weeks, but on 04/26/2018; he state that he fell, sustained injury to his left upper arm and he came to emergency room for evaluation. So he was evaluated in the emergency room, was found to have multilobar pneumonia and also had acute nondisplaced fracture in the neck of the humerus, so he was admitted for IV antibiotics. The patient was started on IV antibiotics and nebulizer treatment he needs further rehab and completion of antibiotics, so he is being transferred to TCU. PAST MEDICAL HISTORY: The patient had significant past medical history of; 1. Non-insulin dependent diabetes. 2. Hypertension. 3. Hyperlipidemia. 4. History of peptic ulcer disease. 5. History of diverticulosis. 6. 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 PHYSICAL EXAMINATION: GENERAL: He is awake, alert, oriented, and able to communicate. VITAL SIGNS: He is afebrile, pulse 70, respirations 18, blood pressure 151/82. LUNGS: Bilateral soft crackle in lower lung area. HEART: S1 and S2 regular. ABDOMEN: Soft and nontender. No rebound. No guarding. NEUROLOGIC: He is awake, alert, oriented, and able to communicate. LABORATORY DATA: Chemistry; blood sugar is 246. Otherwise, his chemistry shows, sodium 141, potassium 3.9, chloride 110, CO2 28, BUN 17, creatinine 1.0, blood sugar of 439. ASSESSMENT AND PLAN: 1. Multilobar pneumonia. 2. Left humerus nondisplaced fracture. 3. Hypertension. 4. Non-insulin dependent diabetes. PLAN: The patient is being transferred to TCU for rehab and continuation of his antibiotics. The patient's MAR reviewed. We will continue him on 5 mg twice a day. He is on Percocet as needed. He is on Rocephin 1 g every 24 hours. He is on Zithromax 500 mg p.o. daily. He is getting analgesics as needed. We will put him on a high dose coverage of Humalog. His is okay, so I will restart him on that he usually takes at home. Continue to monitor his blood sugar and encourage physical therapy. Shweta Merino MD
--- NOTE | 2018-05-31 02:15 | PN ---
DATE: 05/30/2018 SUBJECTIVE: The patient was seen earlier this morning in 576, bed 1. Doing better. Less cough. Mild shortness of breath. No fevers or chills. PHYSICAL EXAMINATION VITAL SIGNS: Temperature is 97, blood pressure is 150/80, respiratory rate of 18, heart rate of 78. HEENT: Unremarkable. NECK: Supple. LUNGS: Decreased breath sounds. HEART: Normal S1 and S2. ABDOMEN: Soft, nontender. LABORATORY DATA: Reveals the patient's white count is 10,000, hemoglobin of 11. Chemistries reveal BUN of 17, creatinine of 1. Serology is noted. Microbiology reveals the blood cultures with no growth. ASSESSMENT AND PLAN: An 82-year-old male with atrial fibrillation, diabetes, dyslipidemia, diverticulosis, chronic obstructive pulmonary disease, with community-acquired pneumonia, left nondisplaced fracture of the neck of the humerus, a diabetic with dyslipidemia, on Rocephin and Zithromax, doing better. Microbiology reveals blood cultures have been negative and urine Legionella negative. The influenza is negative. Procalcitonin is negative. White count is normal. Today is day #3 of Rocephin and Zithromax. Mt Singleton MD
--- NOTE | 2018-06-01 08:47 | PN ---
DATE: 05/30/2018 SUBJECTIVE: The patient came into the hospital with left shoulder fracture just at the surgical neck, minimally displaced compatible for conservative therapy with his arm sling which he has. He still has pain but much less and we told him to not put weight on that shoulder. It will take at least 4-5 weeks to feel much better and he could be ambulatory with this shoulder fracture on the left but not to put weight on the left shoulder, he will always need a sling for the duration of treatment and he should sleep sitting up also. We will get a follow up x-ray in a few days. Jose Siddiqui DO
== END 2018-05-30 15:40 | DRG 562 ==
LOC: ED 16:45 → ERH 19:34 → 5RSO 22:27
PROVIDERS: ADMIT Internal Medicine Nephrology; ATTEND Internal Medicine Nephrology
DX: S42.215A Unspecified nondisplaced fracture of surgical neck of left humerus, initial encounter for closed fracture (principal); J18.9 Pneumonia, unspecified organism; J44.0 Chronic obstructive pulmonary disease with (acute) lower respiratory infection; E11.9 Type 2 diabetes mellitus without complications; I10 Essential (primary) hypertension; K21.9 Gastro-esophageal reflux disease without esophagitis; I48.91 Unspecified atrial fibrillation; E78.5 Hyperlipidemia, unspecified; F17.210 Nicotine dependence, cigarettes, uncomplicated; W01.0XXA Fall on same level from slipping, tripping and stumbling without subsequent striking against object, initial encounter; Y93.01 Activity, walking, marching and hiking; Y92.009 Unspecified place in unspecified non-institutional (private) residence as the place of occurrence of the external cause; Z85.828 Personal history of other malignant neoplasm of skin; Z79.84 Long term (current) use of oral hypoglycemic drugs; Z79.899 Other long term (current) drug therapy; Z87.01 Personal history of pneumonia (recurrent)

== ENCOUNTER 2018-05-30 15:40 | Inpatient (IN) | payer OTHER, MEDICARE ==
[2018-05-30] MEDS ORDERED: Oxycodone/Acetaminophen 5/325 mg Tab PO PRN (16:45)
[2018-05-30] MEDS ORDERED: Morphine 4 mg/ml ISec IVP PRN (16:45)
[2018-05-30] MEDS ORDERED: Insulin Reg-LOW-Coverage SC SCH ×2 (17:34→22:00)
[2018-05-30] MEDS: Insulin Lispro (HUMAlog) HIGH Coverage SC SCH ×2 (18:00→21:40)
[2018-05-30] MEDS ORDERED: Influenza Vaccine 60 mcg/0.5 mL SYR (4YR UP) IM ONE (21:07)
[2018-05-30] MEDS ORDERED: Pneumococcal 23-Valent Vaccine IM ONE (21:07)
[2018-05-30 21:08] VITALS: BMI 20.9
[2018-05-30] MEDS ORDERED: Insulin Lispro (HUMAlog) HIGH Coverage SC SCH (22:00)
[2018-05-31] MEDS: cefTRIAXone 1 gm 1 GM/100 ML BAG IVPB SCH (06:08)
[2018-05-31] MEDS: Pantoprazole 40 mg EC Tab PO SCH (06:09)
[2018-05-31] MEDS: Insulin Lispro (HUMAlog) HIGH Coverage SC SCH ×4 (06:47→21:33)
--- NOTE | 2018-05-31 13:04 | CON ---
DATE: 05/31/2018 ORTHOPAEDIC CONSULT LOCATION: In room 322, bed 2. The patient was admitted to the main hospital 05/27/2018 for medical reasons and proximal left humerus fracture, which I treated him with a sling. He is presently in a sling and learning how to accommodate this fracture by sleeping, sitting up, arm sling and not to put any weight on the left arm and he can ambulate with the cane in the hand for balance. He will need help with eating to open up the food containers. Other than that, he is going to take 6 weeks for the fracture to consolidate and have to be without the sling and I will follow him in the office after he gets out of the TCU, but this fracture should go on to uneventful healing since it is minimally displaced and as long as she does not put weight on it. We will get a another x-ray before he gets discharged from the hospital to see how the status with the left arm is doing. FINAL DIAGNOSIS: Moderately displaced fracture of left proximal humerus just below the shoulder and we will continue conservative therapy to avoid surgery. Jose Siddiqui DO
--- NOTE | 2018-05-31 18:45 | HP ---
DATE OF EXAM: 05/31/2018 HISTORY OF PRESENT ILLNESS: The patient is an 82-year-old white male, fully awake, alert and oriented, came to the emergency room on 05/28/2018 after he tripped and fell. Did not lose consciousness. He fell on the left side sustaining his left shoulder was found to have nondisplaced humeral fracture. His left arm is in the sling and initially he was in acute care floor, was found to have pneumonia, has been on IV antibiotic and nebulizer treatment, sent to TCU for rehab and close observation. PAST MEDICAL HISTORY: Significant for; 1. Gxx-kgcimaq-ejkdvaffq diabetes. 2. Hypertension. 3. Hyperlipidemia. 4. History of peptic ulcer disease. 5. History of diverticulosis. 6. 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 ALLERGIES: HE IS NOT ALLERGIC TO ANY MEDICATION. MEDICATIONS AT HOME: He is on ferrous sulfate, he is on amlodipine 5 mg twice a day, simvastatin 20 mg daily, Protonix 40 daily, metformin 1000 twice a day, and glipizide 10 mg twice a day. SOCIAL HISTORY: He is . Lives with his . He used to be a heavy smoker, quit 15 years ago. PHYSICAL EXAMINATION GENERAL: Today, he is awake, alert and oriented. Resting in bed comfortably. VITAL SIGNS: He is afebrile, pulse 105, respirations 18, blood pressure 158/86. LUNGS: Bilateral fair airflow. No rhonchi or crackle. HEART: S1 and S2 audible. ABDOMEN: Soft, nontender. No rebound. No guarding. NEUROLOGICAL: The patient is awake, alert, oriented and able to communicate. Left arm is in the sling. LABORATORY DATA: Blood sugar is 287. ASSESSMENT AND PLAN: 1. Status post fall. 2. Left humeral fracture. 3. Krm-kqwagnc-yoalrosan diabetes. 4. Hypertension. 5. Hyperlipidemia. PLAN: We will resume on his medication and will add glimepiride since his blood sugar is running high and blood sugar will be monitored. He is being followed by Dr. Siddiqui and we will continue physical therapy. Shweta Merino MD [facility] # [id number]
--- NOTE | 2018-05-31 18:52 | CON ---
DATE OF CONSULTATION: 05/31/2018 The patient is seen in Room 322. CHIEF COMPLAINT: Weakness for several days. HISTORY OF PRESENT ILLNESS: This is an 82-year-old male who was seen in the acute care by me on 05/28/2018 with history of atrial fibrillation, history of diabetes mellitus, dyslipidemia, diverticulosis, gastric ulcers, duodenal ulcers, history of squamous cell cancer of the scalp, and he fell at home and had presented to the hospital with no loss of consciousness, no bladder or bowel incontinence, and no fevers and chills, no nausea, no vomiting. He is now transferred to Transitional Care for physical therapy. PAST MEDICAL HISTORY: Significant for diabetes, gastric and duodenal ulcers, squamous cell cancer of the scalp, atrial fibrillation and dyslipidemia. PAST SURGICAL HISTORY: Significant for scalp skin removal. MEDICATIONS AT HOME: Reviewed. ALLERGIES: THE PATIENT HAS NO KNOWN ALLERGIES. REVIEW OF SYSTEMS: A 12-point review of systems is performed. PHYSICAL EXAMINATION: GENERAL: The patient is in bed in no acute distress. VITAL SIGNS: Temperature of 98, blood pressure is 150/80, respiratory rate of 18, heart rate of 73. HEENT: Unremarkable. NECK: Supple. LUNGS: Decreased breath sounds. HEART: Normal S1, S2. ABDOMEN: Soft, nontender. No organomegaly, no rebound, no guarding, no masses. LABORATORY EXAMINATION: White count of 10,000, hemoglobin of 11, and platelets of 300,000. The patient has a BUN of 17 and creatinine of 1.0. Serology is noted. Urine Legionella antigen is negative. Influenza is negative. Microbiology reveals the blood cultures are negative. ASSESSMENT AND PLAN: This is an 82-year-old male who was seen earlier with atrial fibrillation, diabetes, dyslipidemia, diverticulosis, chronic obstructive lung disease, community-acquired pneumonia, and left nondisplaced fracture of the neck of humerus in a patient with diabetes, dyslipidemia, and community-acquired pneumonia, on ceftriaxone and Zithromax, with procalcitonin negative, blood cultures negative, urine for Legionella antigen is negative, influenza is negative. Today is day #4 of ceftriaxone and Zithromax. Will be able to complete that with p.o. Zithromax and complete the ceftriaxone therapy within the next 24 hours. The patient should have followup imaging with resolution of the chest x-ray. We will follow with you. Mt Singleton MD [facility] # [id number]
[2018-06-01] MEDS: cefTRIAXone 1 gm 1 GM/100 ML BAG IVPB SCH (05:32)
[2018-06-01] MEDS: Pantoprazole 40 mg EC Tab PO SCH (05:43)
[2018-06-01] MEDS: Insulin Lispro (HUMAlog) HIGH Coverage SC SCH ×4 (06:46→22:30)
--- NOTE | 2018-06-01 10:31 | CP.PCM.CON ---
History of Present Illness - History of Present Illness History of Present Illness: ID Consult Note 82 year old male with past medical history of A-fib, DM2, Dyslipidemia, Diverticulosis, gastric/duodenal ulcer, and squamous cell cancer of the scalp presented to the hospital after sustaining a fall at home. Patient fell after he tripped over a ledge and hit his shoulder. Patient subsequently found to have community acquired pneumonia. Patient was started on Rocephin and Azithromycin. Patient also found to have nondisplaced fracture of the left shoulder. Patient transferred to TCU for physical therapy. Denies chest pain, nausea, vomiting, diarrhea, fever, chills, dysuria, numbness, tingling, changes in vision. PMH: A-fib, DM2, Dyslipidemia, Diverticulosis, gastric/duodenal ulcer, and squamous cell cancer of the scalp Surgical hx: Colostomy, resection of SCC of scalp Family Hx: Cancer, unknown which type Social Hx: Former smoker, quit 20 years ago. Smoked 1/2 ppd. Denies alcohol or illicit drug use Allergies: NKDA Medications: Reviewed, as per MAR Review of Systems - Review of Systems Review of Systems: 12 point ROS as per HPI, otherwise negative Past Patient History - Tetanus Immunizations Tetanus Immunization: Unknown - Past Medical History & Family History Past Medical History?: Yes - Past Social History Smoking Status: Former Smoker - CARDIAC Hx Hypertension: Yes - PULMONARY Hx Asthma: No Hx Bronchitis: No Hx Chronic Obstructive Pulmonary Disease (COPD): No Hx Emphysema: No Hx Pneumonia: Yes Hx Respiratory Aspiration: No Hx Respiratory Tract Infection: No Hx Sleep Apnea: No Hx Tuberculosis: No - NEUROLOGICAL Hx Neurological Disorder: No Hx Alzheimer's Disease: No HX Cerebrovascular Accident: No Hx Dementia: No Hx Dizziness: No Hx Meningitis: No Hx Migraine: No Hx Parkinson's Disease: No Hx Seizures: No Hx Transient Ischemic Attacks (TIA): No - HEENT Hx HEENT Problems: No Hx Blind: No Hx Cataracts: No Hx Deafness: No Hx Difficulty Chewing: No Hx Epistaxis: No Hx Glaucoma: No Hx Macular Degeneration: No - RENAL Hx Chronic Kidney Disease: No Hx Dialysis: No Hx Kidney Stones: No Hx Neurogenic Bladder: No Hx Pyelonephritis: No Hx Renal (Kidney) Cancer: No Hx Renal Failure: No - ENDOCRINE/METABOLIC Hx Diabetes Mellitus Type 2: Yes - HEMATOLOGICAL/ONCOLOGICAL Hx Blood Disorders: No Hx AIDS: No Hx Anemia: No Hx Cancer: No Hx Chemotherapy: No Hx Cirrhosis: No Hx Hepatitis A: No Hx Hepatitis B: No Hx Hepatitis C: No Hx Human Immunodeficiency Virus (HIV): No Hx Metastesis: No Hx Shingles: No Hx Unexplained Bleeding: No - INTEGUMENTARY Hx Dermatological Problems: No Hx Basil Cell: No Hx Eczema: No Hx Melanoma: No Hx Psoriasis: No Hx Squamous Cell: No - MUSCULOSKELETAL/RHEUMATOLOGICAL Hx Falls: Yes - GASTROINTESTINAL Hx Gastrointestinal Disorders: No (GERD,DIVERTICULITIS,DUODENAL ULCER) - GENITOURINARY/GYNECOLOGICAL Hx Genitourinary Disorders: No Hx Reproductive Disorders: No - PSYCHIATRIC Hx Psychophysiologic Disorder: No Hx Anxiety: No Hx Bipolar Disorder: No Hx Depression: No Hx Emotional Abuse: No Hx Hallucinations: No Hx Panic Symptoms: No Hx Post Traumatic Stress Disorder: No Hx Psychosis: No Hx Physical Abuse: No Hx Schizophrenia: No Hx Sexual Abuse: No - SURGICAL HISTORY Hx Amputation: No Hx Appendectomy: No Hx Cardiac Catheterization: No Hx Cholecystectomy: No Hx Coronary Stent: No Hx Gastric Bypass Surgery: No Hx Hysterectomy: No Hx Joint Replacement: No Hx Kidney Transplant: No Hx Liver Transplant: No Hx Mastectomy: No Hx Musculoskeletal Surgery: No Hx Open Heart Surgery: No Hx Orthopedic Surgery: No Hx Splenectomy: No Hx Valve Replacement: No - ANESTHESIA Hx Anesthesia Reactions: No Hx Malignant Hyperthermia: No Meds Allergies/Adverse Reactions: Allergies Allergy/AdvReac Type Severity Reaction Status Date / Time No Known Allergies Allergy Verified 05/30/18 18:06 - Medications Medications: Current Medications Amlodipine Besylate (Norvasc) 5 mg PO BID [facility]; Protocol Last Admin: 06/01/18 09:54 Dose: Not Given Atorvastatin Calcium (Lipitor) 10 mg PO HS [facility]; Protocol Last Admin: 05/31/18 21:33 Dose: 10 mg Azithromycin (Zithromax) 500 mg PO DAILY [facility]; Protocol Last Admin: 06/01/18 09:54 Dose: 500 mg Docusate Sodium (Colace) 100 mg PO DAILY [facility]; Protocol Last Admin: 06/01/18 09:54 Dose: 100 mg Glimepiride (Amaryl) 2 mg PO 0800 [facility] Last Admin: 06/01/18 08:11 Dose: 2 mg Ceftriaxone Sodium (Rocephin 1 Gram Ivpb) 1 gm in 100 mls @ 100 mls/hr IVPB 0600 [facility]; Protocol Stop: 06/04/18 06:59 Last Admin: 06/01/18 05:32 Dose: 100 mls/hr Insulin Human Lispro (Humalog High) 0 units SC ACHS [facility]; Protocol Last Admin: 06/01/18 06:46 Dose: 2 units Metformin HCl (Glucophage) 500 mg PO BID [facility] Last Admin: 06/01/18 09:54 Dose: 500 mg Morphine Sulfate (Morphine) 4 mg IVP Q4H PRN; Protocol PRN Reason: Pain, severe (8-10) Oxycodone/Acetaminophen (Percocet 5/325 Mg Tab) 1 tab PO Q4H PRN; Protocol PRN Reason: Pain, moderate (4-7) Stop: 06/02/18 16:46 Pantoprazole Sodium (Protonix Ec Tab) 40 mg PO 599 [facility]; Protocol Last Admin: 06/01/18 05:43 Dose: 40 mg Physical Exam - Constitutional Appears: Non-toxic, No Acute Distress - Head Exam Head Exam: ATRAUMATIC, NORMAL INSPECTION, NORMOCEPHALIC - ENT Exam ENT Exam: Mucous Membranes Moist - Respiratory Exam Respiratory Exam: Decreased Breath Sounds, NORMAL BREATHING PATTERN. absent: Rales, Rhonchi, Wheezes - Cardiovascular Exam Cardiovascular Exam: RRR, +S1, +S2 - GI/Abdominal Exam GI & Abdominal Exam: Normal Bowel Sounds, Soft. absent: Tenderness - Extremities Exam Extremities exam: Negative for: pedal edema Additional comments: Left arm in sling - Neurological Exam Neurological exam: Alert, Oriented x3 - Psychiatric Exam Psychiatric exam: Normal Affect, Normal Mood - Skin Skin Exam: Intact, Normal Color, Warm Results - Vital Signs Recent Vital Signs: Last Vital Signs Temp 98.1 F 05/31/18 16:00 Pulse 94 H 06/01/18 09:54 Resp 18 05/31/18 16:00 BP 137/71 06/01/18 09:54 Pulse Ox 95 05/31/18 16:00 - Labs Labs: Laboratory Results - last 24 hr 05/31/18 05/31/18 05/31/18 11:02 16:29 21:20 POC Glucose (mg/dL) 287 H 191 H 225 H 06/01/18 05:28 POC Glucose (mg/dL) 181 H Assessment & Plan - Assessment and Plan (Free Text) Plan: Community acquired pneumonia Left nondisplaced fracture of the neck of the humerus Hx of A-fib Hx of DM2 Hx of Dyslipidemia Hx of Diverticulosis Hx of gastric duodenal ulcer Hx of Squamous cell carcinoma of the scalp Plan: Rocephin stopped Continue Azithromycin Blood cultures negative Legionella negative Procalcitonin low Continue current medical regimen [facility], PGY-3
--- NOTE | 2018-06-01 13:52 | CP.PCM.PN ---
<Boo Kat - Last Filed: 06/01/18 13:50> Subjective - Date & Time of Evaluation Date of Evaluation: 06/01/18 Time of Evaluation: 10:00 - Subjective Subjective: Patient seen and examined at bedside. No acute events overnight. Patient still has cough. Denies chest pain, shortness of breath, nausea, vomiting, diarrhea, fever, chills. Objective - Vital Signs/Intake and Output Vital Signs (last 24 hours): Temp Pulse Resp BP Pulse Ox 98.1 F 94 H 18 137/71 95 05/31/18 16:00 06/01/18 09:54 05/31/18 16:00 06/01/18 09:54 05/31/18 16:00 - Medications Medications: Current Medications Amlodipine Besylate (Norvasc) 5 mg PO BID [facility]; Protocol Last Admin: 06/01/18 09:54 Dose: Not Given Atorvastatin Calcium (Lipitor) 10 mg PO HS [facility]; Protocol Last Admin: 05/31/18 21:33 Dose: 10 mg Azithromycin (Zithromax) 500 mg PO DAILY [facility]; Protocol Last Admin: 06/01/18 09:54 Dose: 500 mg Docusate Sodium (Colace) 100 mg PO DAILY [facility]; Protocol Last Admin: 06/01/18 09:54 Dose: 100 mg Glimepiride (Amaryl) 2 mg PO 0800 [facility] Last Admin: 06/01/18 08:11 Dose: 2 mg Ceftriaxone Sodium (Rocephin 1 Gram Ivpb) 1 gm in 100 mls @ 100 mls/hr IVPB 0600 [facility]; Protocol Stop: 06/04/18 06:59 Last Admin: 06/01/18 05:32 Dose: 100 mls/hr Insulin Human Lispro (Humalog High) 0 units SC ACHS [facility]; Protocol Last Admin: 06/01/18 12:16 Dose: 4 units Metformin HCl (Glucophage) 500 mg PO BID [facility] Last Admin: 06/01/18 09:54 Dose: 500 mg Morphine Sulfate (Morphine) 4 mg IVP Q4H PRN; Protocol PRN Reason: Pain, severe (8-10) Oxycodone/Acetaminophen (Percocet 5/325 Mg Tab) 1 tab PO Q4H PRN; Protocol PRN Reason: Pain, moderate (4-7) Stop: 06/02/18 16:46 Pantoprazole Sodium (Protonix Ec Tab) 40 mg PO 0600 [facility]; Protocol Last Admin: 06/01/18 05:43 Dose: 40 mg - Constitutional Appears: Non-toxic, No Acute Distress - Head Exam Head Exam: ATRAUMATIC, NORMAL INSPECTION, NORMOCEPHALIC - ENT Exam ENT Exam: Mucous Membranes Moist - Respiratory Exam Respiratory Exam: Clear to Ausculation Bilateral, NORMAL BREATHING PATTERN - Cardiovascular Exam Cardiovascular Exam: RRR, +S1, +S2 - GI/Abdominal Exam GI & Abdominal Exam: Soft, Normal Bowel Sounds. absent: Tenderness - Extremities Exam Extremities Exam: Normal Inspection. absent: Pedal Edema - Neurological Exam Neurological Exam: Alert, Awake, Oriented x3 - Psychiatric Exam Psychiatric exam: Normal Affect, Normal Mood - Skin Skin Exam: Intact, Normal Color, Warm Assessment and Plan - Assessment and Plan (Free Text) Plan: Community acquired pneumonia Left nondisplaced fracture of the neck of the humerus Hx of A-fib Hx of DM2 Hx of Dyslipidemia Hx of Diverticulosis Hx of gastric duodenal ulcer Hx of Squamous cell carcinoma of the scalp Plan: Rocephin stopped Continue Azithromycin Blood cultures negative Legionella negative Procalcitonin low Follow up chest x-ray in 1 month Continue current medical regimen [facility], PGY-3 <Ac Wilkins - Last Filed: 06/01/18 17:03> Objective - Vital Signs/Intake and Output Vital Signs (last 24 hours): Temp Pulse Resp BP Pulse Ox 97.6 F 105 H 18 105/66 94 L 06/01/18 16:00 06/01/18 16:00 06/01/18 16:00 06/01/18 16:00 06/01/18 16:00 - Medications Medications: Current Medications Amlodipine Besylate (Norvasc) 5 mg PO BID [facility]; Protocol Last Admin: 06/01/18 09:54 Dose: Not Given Atorvastatin Calcium (Lipitor) 10 mg PO HS [facility]; Protocol Last Admin: 05/31/18 21:33 Dose: 10 mg Azithromycin (Zithromax) 500 mg PO DAILY [facility]; Protocol Last Admin: 06/01/18 09:54 Dose: 500 mg Docusate Sodium (Colace) 100 mg PO DAILY [facility]; Protocol Last Admin: 06/01/18 09:54 Dose: 100 mg Glimepiride (Amaryl) 2 mg PO 0800 [facility] Last Admin: 06/01/18 08:11 Dose: 2 mg Ceftriaxone Sodium (Rocephin 1 Gram Ivpb) 1 gm in 100 mls @ 100 mls/hr IVPB 0600 [facility]; Protocol Stop: 06/04/18 06:59 Last Admin: 06/01/18 05:32 Dose: 100 mls/hr Insulin Human Lispro (Humalog High) 0 units SC ACHS [facility]; Protocol Last Admin: 06/01/18 12:16 Dose: 4 units Metformin HCl (Glucophage) 500 mg PO BID [facility] Last Admin: 06/01/18 09:54 Dose: 500 mg Morphine Sulfate (Morphine) 4 mg IVP Q4H PRN; Protocol PRN Reason: Pain, severe (8-10) Oxycodone/Acetaminophen (Percocet 5/325 Mg Tab) 1 tab PO Q4H PRN; Protocol PRN Reason: Pain, moderate (4-7) Stop: 06/02/18 16:46 Pantoprazole Sodium (Protonix Ec Tab) 40 mg PO 0600 [facility]; Protocol Last Admin: 06/01/18 05:43 Dose: 40 mg Assessment and Plan - Assessment and Plan (Free Text) Plan: Infectious diseases Attending Physician Attestation Patient seen and examined, discussed with medical office specialist. I have reviewed the patient's history of present illness, past medical, social, personal and family histories, pertinent physical exam findings, course so far in this hospital admission, pertinent laboratory and imaging results. I agree with the above findings, assessment and plan. In addition, continue Zithromax and complete its course of community-acquired pneumonia. Will need repeat CXR in a month to follow up resolution of the infiltrates.
--- NOTE | 2018-06-01 19:28 | PN ---
DATE: 06/01/2018 SUBJECTIVE: The patient has no complaints of any chest pain. No shortness of breath. No headaches. No dizziness. He does have a cough, but is dry. PHYSICAL EXAMINATION VITAL SIGNS: Temperature is 98.1, pulse of 99, blood pressure is 137/71, and respirations 18. GENERAL: The patient is lying in bed, flat, comfortable. HEENT: No oral lesion. Anicteric sclerae. Moist mucosa. NECK: No JVD, adenopathy, or thyromegaly. CARDIOVASCULAR: S1 and S2, regular. No murmurs, rubs, or gallops. LUNGS: Clear to auscultation bilaterally. No wheeze, rales, or rhonchi ABDOMEN: Bowel sounds are positive, soft, nontender and nondistended. EXTREMITIES: No cyanosis, clubbing or edema. ASSESSMENT: 1. Community-acquired pneumonia. 2. Left nondisplaced fracture of humerus. 3. Diabetes type 2. 4. Hypertension. 5. Dyslipidemia. 6. History of squamous cell carcinoma of the scalp. 7. Diverticulitis. PLAN: The patient is currently on Transitional Care Unit for rehab. He is on glimepiride for his diabetes. He is going to continue his docusate for his constipation. He is on metformin for his diabetes. He is on atorvastatin for his dyslipidemia. Now, the patient is on amlodipine for his hypertension. He is on Percocet for pain. The patient wants to continue with Rocephin for antibiotics as well as Zithromax. He is on a heart healthy diet. He is being followed by Infectious Disease. Brian Calzada MD
[2018-06-02] MEDS: Pantoprazole 40 mg EC Tab PO SCH (05:21)
[2018-06-02] MEDS: cefTRIAXone 1 gm 1 GM/100 ML BAG IVPB SCH (05:21)
[2018-06-02] MEDS: Insulin Lispro (HUMAlog) HIGH Coverage SC SCH ×4 (06:45→21:31)
--- NOTE | 2018-06-02 15:08 | PN ---
DATE: 06/02/2018 SUBJECTIVE: The patient has no complaints of any chest pain or shortness of breath or headaches or dizziness. PHYSICAL EXAMINATION: VITAL SIGNS: Temperature is 98.3, pulse of 79, blood pressure 126/61 and respirations 16. GENERAL: The patient is lying in bed, flat, comfortable. HEENT: No oral lesion. Anicteric sclerae. Moist mucosa. NECK: No JVD, adenopathy, or thyromegaly. CARDIOVASCULAR: S1 and S2, regular. No murmurs, rubs, or gallops. LUNGS: Clear to auscultation bilaterally. No wheeze, rales, or rhonchi. ABDOMEN: Bowel sounds are positive, soft, nontender and nondistended. EXTREMITIES: No cyanosis, clubbing or edema. ASSESSMENT: 1. Community acquired pneumonia. 2. Left nondisplaced fracture of humerus. 3. Diabetes type 2. 4. Hypertension. 5. Dyslipidemia. 6. History of squamous cell carcinoma of the scalp. PLAN: The patient is currently comfortable. The patient is on Transitional Care Unit. He is receiving his glimepiride, his sugar is elevated at 341 today. The patient on metformin for his diabetes, on Lipitor for dyslipidemia. He is on morphine for pain. I will discontinue his morphine at this point. He is on Norvasc for hypertension. He can use his Percocet for pain, if he requires more pain control. He is on Protonix daily. The patient is on Rocephin for antibiotics. He is on Zithromax as well. I will discontinue these medications at this point and place him on oral agents for his community acquired pneumonia. Brian Calzada MD
--- NOTE | 2018-06-02 19:17 | PN ---
DATE: 06/02/2018 SUBJECTIVE: Patient is in bed, in no acute distress, nontoxic. PHYSICAL EXAMINATION: VITAL SIGNS: Temperature is 98, blood pulse is 128/60, and respiratory rate of 18. HEENT: Unremarkable. NECK: Supple. LUNGS: Have decreased breath sounds. HEART: Normal S1 and S2. ABDOMEN: Soft. LABORATORY DATA: Laboratories are reviewed. ASSESSMENT AND PLAN: This is an 82-year-old male with community-acquired pneumonia, left nondisplaced fracture of the neck of the humerus and on p.o. Zithromax and patient with diabetes, atrial fibrillation, dyslipidemia, and currently on p.o. Augmentin. Mt Singleton MD
[2018-06-02] MEDS: Amoxicillin-Clav 875-125 mg Tab PO SCH (21:30)
[2018-06-03] MEDS: Pantoprazole 40 mg EC Tab PO SCH (05:35)
[2018-06-03] MEDS: Insulin Lispro (HUMAlog) HIGH Coverage SC SCH ×3 (06:45→19:14)
[2018-06-03] MEDS: Amoxicillin-Clav 875-125 mg Tab PO SCH ×2 (09:37→21:33)
--- NOTE | 2018-06-03 10:21 | PN ---
DATE: 06/03/2018 SUBJECTIVE: The patient is in bed, in no acute distress, nontoxic. PHYSICAL EXAMINATION: VITAL SIGNS: Temperature is 98, blood pressure is 120/60, respiratory rate 16. HEENT: Unremarkable. NECK: Supple. LUNGS: Have decreased breath sounds. HEART: Normal S1, S2. ABDOMEN: Soft. Review of orders reveals the patient to be on Augmentin. ASSESSMENT AND PLAN: This is an 82-year-old male, seen in room 322 with community-acquired pneumonia, left nondisplaced fracture of the neck of the humerus, now on p.o. Augmentin a short course of antibiotics. Mt Singleton MD
--- NOTE | 2018-06-03 11:14 | PN ---
DATE: 06/03/2018 SUBJECTIVE: The patient has no complaints of any chest pain or shortness breath, no headache or dizziness. PHYSICAL EXAMINATION: VITAL SIGNS: Temperature is 98.2, pulse of 85, blood pressure is 120/69, respirations 18. GENERAL: The patient is lying in bed, flat, comfortable. HEENT: No oral lesion. Anicteric sclerae. Moist mucosa. NECK: No JVD, adenopathy, or thyromegaly. CARDIOVASCULAR: S1 and S2, regular. No murmurs, rubs, or gallops. LUNGS: Clear to auscultation bilaterally. No wheeze, rales, or rhonchi. ABDOMEN: Bowel sounds are positive, soft, nontender and nondistended. EXTREMITIES: No cyanosis, clubbing or edema. ASSESSMENT: 1. Community-acquired pneumonia. 2. Left nondisplaced fracture of humerus. 3. Diabetes type 2. 4. Hypertension. 5. Dyslipidemia. 6. History of squamous cell carcinoma of the scalp. PLAN: The patient is currently on Augmentin for antibiotics and Amaryl for diabetes and metformin. He is on Lipitor for dyslipidemia. He is on Norvasc for hypertension. He is on a heart-healthy diet. He is improving with physical therapy. Brian Calzada MD
[2018-06-03] MEDS: Levalbuterol 1.25 MG/3 ML Inhal Soln UD IH SCH ×2 (13:42→20:20)
[2018-06-04] MEDS: Levalbuterol 1.25 MG/3 ML Inhal Soln UD IH SCH ×4 (01:47→21:10)
[2018-06-04] MEDS: Pantoprazole 40 mg EC Tab PO SCH (05:37)
[2018-06-04] MEDS: Insulin Lispro (HUMAlog) HIGH Coverage SC SCH ×5 (06:31→21:59)
[2018-06-04] MEDS: Acetylcysteine 20% Inhal Soln (4ml) IH SCH ×3 (07:47→21:10)
[2018-06-04] MEDS: Amoxicillin-Clav 875-125 mg Tab PO SCH ×2 (09:17→21:29)
--- NOTE | 2018-06-04 14:49 | CON ---
DATE: 06/04/2018 PULMONARY CONSULTATION REASON FOR PULMONARY CONSULTATION: Pneumonia. REFERRING PHYSICIAN: Dr. Brian Calzada. HISTORY OF PRESENT ILLNESS: The patient is an 82-year-old male, with past medical history significant for diabetes mellitus, hypertension, hyperlipidemia, peptic ulcer disease, who presented to [facility] - originally on 05/27/2018 - after falling at home. Apparently, the patient was home, tripped and fell - injuring his left shoulder. He then went to the emergency room for additional evaluation. In the emergency room, the patient also complained of shortness of breath, cough and sputum production for the past week. He was subsequently diagnosed with pneumonia. He was thus admitted for this evaluation. I did discuss the case with the nurse at length. Apparently, the patient did very well on the acute care side, and was transferred to the transitional unit for physical therapy. I am thus asked to evaluate on this case for additional management. The patient is not short of breath at rest. He does have some mild dyspnea on exertion. He also complains of a mild cough with occasional sputum production. There is no history of chest pain, coughing up of blood, or chest pain - brought on with deep respirations. There have been no recent fevers or chills. No known infectious exposure. No history of night sweats, weight loss or appetite change prior to the above events. No history of calf pains. No history of syncope or diaphoresis. No history of recent travel or trauma. REVIEW OF SYSTEMS: No history of nausea, vomiting or diarrhea. No acute urinary symptoms. Rest of the review of systems is negative. ALLERGIES: NO KNOWN ALLERGIES. SOCIAL HISTORY: Positive for former tobacco usage. No alcohol. FAMILY HISTORY: No inheritable diseases. MEDICATIONS: Home medications include Norvasc, simvastatin, Protonix, Glucophage, Glucotrol, iron and stool softener. PHYSICAL EXAMINATION: GENERAL: The patient appears comfortable this morning. He is not short of breath at rest. VITAL SIGNS: Temperature is 97.7, pulse is 75, respirations 18, blood pressure 124/68. Oxygen saturation on nasal cannula is 95%. HEENT: Normocephalic, atraumatic. No JVD. CARDIOVASCULAR: Systolic ejection murmur at the lower left sternal border. No S3 gallop. LUNGS: Crackles noted at the left base. Mild bilateral rhonchi. No wheezing. EXTREMITIES: No clubbing, cyanosis or edema. Calves are nontender to palpation. GASTROINTESTINAL: Abdomen is soft, nontender and nondistended. Bowel sounds are positive. SKIN: No acute rash. NEUROLOGIC: Exam limited at the present time. PERTINENT LABORATORY DATA: Chest x-ray was done on 05/27/2018 and reviewed. There is a left lower lobe infiltrate noted. Shoulder x-ray was also done. There is a fracture of the left humerus. Last CBC: White count 10.4K, hemoglobin 11.6, hematocrit 36.5, platelets of 300,000. IMPRESSION: 1. Left lower lobe pneumonia. 2. Acute bronchitis. 3. Left humerus fracture. 4. Mild anemia. 5. Diabetes mellitus. PLAN: Again, I did discuss the case with the nurse at length. I have also reviewed the chart at length, and discussed case with the patient at length. The patient presented to [facility] - originally on 05/27/2018 - after falling at home. Apparently, he tripped and injured his left shoulder. He then sought treatment in the emergency room. In the emergency room, the patient also gave the history of worsening pulmonary symptoms for the past week. Subsequent evaluation revealed a left lower lobe pneumonia. He was thus admitted for additional evaluation. I did review the last chest x-ray done. There is in fact a left lower lobe infiltrate noted. The patient has been followed and was placed on appropriate antibiotic therapy as per Infectious Disease. Input by Dr. Singleton is noted. The patient does state to feeling much better, with decreased pulmonary symptoms over the past week. On physical exam, there is mild bronchospasm noted. However, there is no significant alveolar-arterial gradient. I will continue with the Xopenex nebulizer treatments (added yesterday), and also add inhaled Mucomyst. Clinical status of the patient certainly appears improved - compared to the initial presentation. The patient will continue with physical therapy on the transitional unit. I will discuss the above with the attending physician. Thank you very much for this pulmonary consultation. Jorge Haddad MD MTDErika
--- NOTE | 2018-06-04 17:42 | PN ---
DATE: 06/04/2018 SUBJECTIVE: The patient is in bed, in no acute distress, nontoxic. PHYSICAL EXAMINATION: VITAL SIGNS: Temperature is 98, blood pressure is 130/70, and respiratory rate of 18. HEENT: Unremarkable. NECK: Supple. LUNGS: Decreased breath sounds. HEART: Normal S1 and S2. ABDOMEN: Soft. LABORATORY DATA: Examination is reviewed and review of orders revealed that the patient is off of antibiotic. ASSESSMENT AND PLAN: An 82-year-old, who was seen earlier today in 322 with community-acquired pneumonia left, nondisplaced fracture of neck of the humerus, currently on oral Augmentin. We will complete a short course of therapy. Mt Singleton MD
--- NOTE | 2018-06-05 00:39 | PN ---
DATE: 06/04/2018 SUBJECTIVE: The patient has no complaints of any chest pain, shortness breath or headaches. He says his pain is better controlled. PHYSICAL EXAMINATION VITAL SIGNS: Temperature is 97.6, pulse of 80, blood pressure is 135/61, respirations 18. GENERAL: The patient is lying in bed, flat, comfortable. HEENT: No oral lesion. Anicteric sclerae. Moist mucosa. NECK: No JVD, adenopathy, or thyromegaly. CARDIOVASCULAR: S1 and S2, regular. No murmurs, rubs, or gallops. LUNGS: Clear to auscultation bilaterally. No wheeze, rales, or rhonchi. ABDOMEN: Bowel sounds are positive, soft, nontender and nondistended. EXTREMITIES: no cyanosis, clubbing or edema. ASSESSMENT: 1. Community-acquired pneumonia, improved. 2. Left nondisplaced fracture of humerus. 3. Diabetes type 2. 4. Hypertension. 5. Dyslipidemia. 6. History of squamous cell carcinoma of the scalp. PLAN: The patient is currently on Augmentin for antibiotics. He has diabetes type 2. He is on Amaryl. He is on Lipitor for dyslipidemia. He is on Norvasc for hypertension. He is on a heart-healthy diet. We will check his blood work tomorrow. He may not be ready to go home in the next few days and may need subacute rehab. We will continue to follow closely. Brian Calzada MD
[2018-06-05] MEDS: Levalbuterol 1.25 MG/3 ML Inhal Soln UD IH SCH ×4 (02:00→21:10)
[2018-06-05] MEDS: Acetylcysteine 20% Inhal Soln (4ml) IH SCH ×4 (02:00→21:10)
[2018-06-05] MEDS: Pantoprazole 40 mg EC Tab PO SCH (05:35)
[2018-06-05] MEDS: Insulin Lispro (HUMAlog) HIGH Coverage SC SCH ×4 (06:35→22:03)
[2018-06-05 07:44] LABS: ALBUMIN 2.7 g/dL (3.0-4.8); ALT/SGPT 31 U/L (7-56); AST/SGOT 16 U/L (17-59); BLOOD UREA NITROGEN 20 mg/dL (7-21); CALCIUM 9.8 mg/dL (8.4-10.5); GFR NON-AFRICAN AMERICAN > 60
[2018-06-05 07:48] LABS: HEMOGLOBIN 10.8 g/dL (14.0-18.0); MEAN CELL VOLUME 92.1 fl (80.0-105.0); MEAN CORPUSCULAR HEMOGLOBIN 29.6 pg (25.0-35.0); MEAN CORPUSCULAR HGB CONC 32.1 g/dl (31.0-37.0); MEAN PLATELET VOLUME 10.3 fl (7.0-11.0); RBC 3.65 10^6/uL (3.5-6.1); RED CELL DISTRIBUTION WIDTH 17.2 % (11.5-14.5); WHITE BLOOD COUNT 11.4 10^3/uL (4.5-11.0)
[2018-06-05] MEDS: Amoxicillin-Clav 875-125 mg Tab PO SCH (10:14)
--- NOTE | 2018-06-05 10:58 | PN ---
DATE: 06/05/2018 SUBJECTIVE: The patient has no complaint of any chest pain. No shortness of breath. No headaches or dizziness. PHYSICAL EXAMINATION: GENERAL: The patient is lying in bed, flat, comfortable. VITAL SIGNS: Temperature is 97.6, pulse is 80, blood pressure 135/61, respirations 18. HEENT: No oral lesion. Anicteric sclerae. Moist mucosa. NECK: No JVD, adenopathy, or thyromegaly. CARDIOVASCULAR: S1 and S2, regular. No murmurs, rubs, or gallops. LUNGS: Clear to auscultation bilaterally. No wheeze, rales, or rhonchi. ABDOMEN: Bowel sounds are positive, soft, nontender and nondistended. EXTREMITIES: No cyanosis, clubbing or edema. LABS: White count of 11.4, hemoglobin 10.8, creatinine is 1. ASSESSMENT: 1. Community-acquired pneumonia, improved. 2. Left nondisplaced fracture of humerus. 3. Diabetes type 2. 4. Hypertension. 5. Dyslipidemia. 6. History of squamous cell carcinoma of the scalp. PLAN: The patient is on Amaryl for diabetes. The patient is on Augmentin for antibiotics. He is going to continue with Colace for constipation. He is on metformin for his diabetes and Lipitor for dyslipidemia. The patient is on nebulizer treatments. I will order a chest x-ray to evaluate his pneumonia. He did speak to me about subacute rehab. I think that the patient may need to go to subacute rehab in order to continue to improve. He is not ready to go home. He has difficulty in ambulating and transferring. He has limited support at home. I will speak to the social science manager regarding this. Brian Calzaad MD
--- NOTE | 2018-06-05 12:19 | RAD ---
Date of service: 06/05/2018 PROCEDURE: Radiographs of the Left Shoulder HISTORY: fx follow up COMPARISON: 05/27/2018 FINDINGS: BONES: There is a comminuted displaced fracture of the left humeral neck. No significant change JOINTS: Normal. Glenohumeral and acromioclavicular joints preserved. No osteoarthritis. SOFT TISSUES: Normal. OTHER FINDINGS: None. IMPRESSION: There is a comminuted displaced fracture of the left humeral neck. No significant change
--- NOTE | 2018-06-05 12:19 | RAD ---
Date of service: 06/05/2018 HISTORY: pneumonia COMPARISON: 05/27/2018 TECHNIQUE: Chest PA and lateral FINDINGS: LUNGS: Increasing infiltrate and effusion in the left lower lobe. PLEURA: As above CARDIOVASCULAR: No aortic atherosclerotic calcification present. Moderate cardiomegaly no pulmonary vascular congestion. OSSEOUS STRUCTURES: No significant abnormalities. VISUALIZED UPPER ABDOMEN: Normal. OTHER FINDINGS: None. IMPRESSION: Increasing infiltrate and effusion in the left lower lobe.
--- NOTE | 2018-06-05 12:35 | PN ---
DATE: 06/05/2018 PULMONARY NOTE SUBJECTIVE: The patient appears comfortable this morning. He is not short of breath at rest. PHYSICAL EXAMINATION: VITAL SIGNS: (Last noted in the computer): Temperature is 97.6, pulse is 80, respiratory rate 18, blood pressure 135/61. Oxygen saturation on nasal cannula is 94%. HEENT: Normocephalic, atraumatic. No JVD. CARDIOVASCULAR: Systolic ejection murmur at the lower left sternal border. No S3 gallop. LUNGS: Crackles noted at the left base. Less rhonchi. No wheezing. GI: Abdomen is soft, nontender and nondistended. Bowel sounds are positive. EXTREMITIES: No clubbing, cyanosis or edema. Calves are nontender to palpation. SKIN: No acute rash. NEUROLOGIC: Exam limited at the present time. IMPRESSION: 1. Left lower lobe pneumonia. 2. Acute bronchitis. 3. Left humerus fracture. 4. Mild anemia. 5. Diabetes mellitus. PLAN: The patient appears comfortable this morning. He is not short of breath at rest. He does state to feeling much better overall. On physical exam, there is certainly less bronchospasm noted. In addition, the alveolar-arterial gradient is also less. I will continue the current nebulizer treatments for now. The patient remains on antibiotic therapy - as per Infectious Disease. Input by Dr. Singleton is noted. There are no temperatures noted. There is no leukocytosis. Repeat labs-pending. Clinical status of the patient has significantly improved - compared to his initial presentation. The patient is advised to be out of bed as much as possible and participate with physical therapy. I will discuss the above with the attending physician. Jorge Haddad MD GORAN
[2018-06-05] MEDS ORDERED: Vancomycin 1gm in NS 250ml 1 GM/250 ML BAG IVPB SCH ×2 (12:45→22:00)
[2018-06-05] MEDS: Meropenem IV 1 gm in NS 1 GM/50 ML BAG IVPB SCH ×2 (14:15→22:04)
--- NOTE | 2018-06-05 15:30 | CP.PCM.PN ---
<Boo Kat - Last Filed: 06/05/18 15:24> Subjective - Date & Time of Evaluation Date of Evaluation: 06/05/18 Time of Evaluation: 07:30 - Subjective Subjective: ID Progress Note Patient seen and examined at bedside. Patient admits to worsening cough. Denies chest pain, shortness of breath, nausea, vomiting, diarrhea, fever, chills. Objective - Vital Signs/Intake and Output Vital Signs (last 24 hours): Temp Pulse Resp BP Pulse Ox 97.6 F 101 H 18 138/67 94 L 06/04/18 16:00 06/05/18 10:16 06/04/18 16:00 06/05/18 10:16 06/04/18 17:10 - Medications Medications: Current Medications Acetylcysteine (Acetylcysteine 20%) 4 ml IH [id number] AISHA Last Admin: 06/05/18 14:00 Dose: Not Given Amlodipine Besylate (Norvasc) 5 mg PO BID AISHA; Protocol Last Admin: 06/05/18 10:16 Dose: 5 mg Atorvastatin Calcium (Lipitor) 10 mg PO HS AISHA; Protocol Last Admin: 06/04/18 21:29 Dose: 10 mg Docusate Sodium (Colace) 100 mg PO DAILY AISHA; Protocol Last Admin: 06/05/18 10:14 Dose: 100 mg Glimepiride (Amaryl) 2 mg PO 0800 AISHA Last Admin: 06/05/18 08:00 Dose: 2 mg Meropenem (Merrem Iv 1 Gm Premix) 1 gm in 50 mls @ 100 mls/hr IVPB Q8 AISHA; Protocol Last Admin: 06/05/18 14:15 Dose: 100 mls/hr Vancomycin HCl (Vancomycin 1gm) 1 gm in 250 mls @ 167 mls/hr IVPB Q12 AISHA; Protocol Insulin Human Lispro (Humalog High) 0 units SC ACHS AISHA; Protocol Last Admin: 06/05/18 12:51 Dose: 4 units Levalbuterol HCl (Xopenex) 1.25 mg IH [id number] AISHA Last Admin: 06/05/18 14:00 Dose: Not Given Metformin HCl (Glucophage) 500 mg PO 0800,1800 AISHA Last Admin: 06/05/18 08:01 Dose: 500 mg Pantoprazole Sodium (Protonix Ec Tab) 40 mg PO 0600 AISHA; Protocol Last Admin: 06/05/18 05:35 Dose: 40 mg - Labs Labs: 06/05/18 07:40 06/05/18 06:30 - Constitutional Appears: Non-toxic, No Acute Distress - Head Exam Head Exam: ATRAUMATIC, NORMAL INSPECTION, NORMOCEPHALIC - Respiratory Exam Respiratory Exam: Decreased Breath Sounds, Rhonchi, NORMAL BREATHING PATTERN. absent: Rales, Wheezes - Cardiovascular Exam Cardiovascular Exam: RRR, +S1, +S2 - GI/Abdominal Exam GI & Abdominal Exam: Soft, Normal Bowel Sounds. absent: Tenderness - Extremities Exam Additional comments: Left arm in sling - Neurological Exam Neurological Exam: Alert, Awake, Oriented x3 - Psychiatric Exam Psychiatric exam: Normal Affect, Normal Mood - Skin Skin Exam: Intact, Normal Color, Warm Assessment and Plan - Assessment and Plan (Free Text) Plan: Community acquired pneumonia R/O hospital acquired pneumonia Left nondisplaced fracture of the neck of the humerus Hx of A-fib Hx of DM2 Hx of Dyslipidemia Hx of Diverticulosis Hx of gastric duodenal ulcer Hx of Squamous cell carcinoma of the scalp Plan: Chest x-ray reviewed, demonstrates infiltrate increasing in size Vancomycin and Merrem started Repeat Blood and sputum cultures [facility] <Ac Wilkins - Last Filed: 06/05/18 15:56> Objective - Vital Signs/Intake and Output Vital Signs (last 24 hours): Temp Pulse Resp BP Pulse Ox 97.6 F 101 H 18 138/67 94 L 06/04/18 16:00 06/05/18 10:16 06/04/18 16:00 06/05/18 10:16 06/04/18 17:10 - Medications Medications: Current Medications Acetylcysteine (Acetylcysteine 20%) 4 ml IH [id number] [facility] Last Admin: 06/05/18 14:00 Dose: Not Given Amlodipine Besylate (Norvasc) 5 mg PO BID [facility]; Protocol Last Admin: 06/05/18 10:16 Dose: 5 mg Atorvastatin Calcium (Lipitor) 10 mg PO HS [facility]; Protocol Last Admin: 06/04/18 21:29 Dose: 10 mg Docusate Sodium (Colace) 100 mg PO DAILY [facility]; Protocol Last Admin: 06/05/18 10:14 Dose: 100 mg Glimepiride (Amaryl) 2 mg PO 0800 AISHA Last Admin: 06/05/18 08:00 Dose: 2 mg Meropenem (Merrem Iv 1 Gm Premix) 1 gm in 50 mls @ 100 mls/hr IVPB Q8 AISHA; Protocol Last Admin: 06/05/18 14:15 Dose: 100 mls/hr Vancomycin HCl (Vancomycin 1gm) 1 gm in 250 mls @ 167 mls/hr IVPB Q12 AISHA; Protocol Insulin Human Lispro (Humalog High) 0 units SC ACHS AISHA; Protocol Last Admin: 06/05/18 12:51 Dose: 4 units Levalbuterol HCl (Xopenex) 1.25 mg IH [id number] AISHA Last Admin: 06/05/18 14:00 Dose: Not Given Metformin HCl (Glucophage) 500 mg PO 0800,1800 AISHA Last Admin: 06/05/18 08:01 Dose: 500 mg Pantoprazole Sodium (Protonix Ec Tab) 40 mg PO 0600 AISHA; Protocol Last Admin: 06/05/18 05:35 Dose: 40 mg - Labs Labs: 06/05/18 07:40 06/05/18 06:30 Assessment and Plan - Assessment and Plan (Free Text) Plan: Infectious diseases Attending Physician Attestation Patient seen and examined, discussed with infertility medical assistant. I have reviewed the patient's history of present illness, past medical, social, personal and family histories, pertinent physical exam findings, course so far in this hospital admission, pertinent laboratory and imaging results. I agree with the above findings, assessment and plan. In addition, patient with worsening cough and worsening infiltrates on CXR - consider HAP. Will start IV Vancomycin and Merrem and follow up blood, sputum cx, PCT. REviewed CXR. Will monitor clinically.
[2018-06-06] MEDS: Acetylcysteine 20% Inhal Soln (4ml) IH SCH ×4 (02:00→19:51)
[2018-06-06] MEDS: Levalbuterol 1.25 MG/3 ML Inhal Soln UD IH SCH ×4 (02:00→19:51)
[2018-06-06] MEDS: Pantoprazole 40 mg EC Tab PO SCH (05:03)
[2018-06-06] MEDS: Meropenem IV 1 gm in NS 1 GM/50 ML BAG IVPB SCH ×3 (05:03→21:05)
[2018-06-06] MEDS: Vancomycin 1gm in NS 250ml 1 GM/250 ML BAG IVPB SCH ×2 (05:04→17:30)
[2018-06-06] MEDS: Insulin Lispro (HUMAlog) HIGH Coverage SC SCH ×4 (06:39→22:09)
--- NOTE | 2018-06-06 10:33 | PN ---
DATE: 06/06/2018 SUBJECTIVE: The patient has no complaints of any chest pain. No shortness of breath. No headaches. PHYSICAL EXAMINATION: VITAL SIGNS: Temperature is 98.5, pulse is 79, blood pressure is 130/66, respirations 20. GENERAL: The patient is lying in bed, flat, comfortable. HEENT: No oral lesion. Anicteric sclerae. Moist mucosa. NECK: No JVD, adenopathy, or thyromegaly. CARDIOVASCULAR: S1 and S2, regular. No murmurs, rubs, or gallops. LUNGS: Clear to auscultation bilaterally. No wheeze, rales, or rhonchi. ABDOMEN: Bowel sounds are positive, soft, nontender and nondistended. EXTREMITIES: No cyanosis, clubbing or edema. LABS: White count of 11.4, hemoglobin 10.8, creatinine is 1. Chest x-ray showed increased infiltrate infusion of the left lower lobe. ASSESSMENT: 1. Community acquired pneumonia, improved. 2. Hospital-acquired pneumonia, new. 3. Left humerus fracture. 4. Diabetes type 2. 5. Hypertension. 6. Dyslipidemia. 7. History of squamous cell carcinoma of the scalp. PLAN: The patient is currently comfortable. He is on Amaryl for diabetes, is on Colace for constipation. He is going to continue the Lipitor for dyslipidemia. He is on meropenem for antibiotics. The patient is on Norvasc for hypertension. He is on Protonix daily. The patient is on a heart healthy diet. He is not ready to be discharged to subacute rehab. He has been started on meropenem and vancomycin for his hospital-acquired pneumonia. Brian Calzada MD
[2018-06-06 17:11] VITALS: RESP 18
[2018-06-07] MEDS: Levalbuterol 1.25 MG/3 ML Inhal Soln UD IH SCH ×4 (01:35→21:13)
[2018-06-07] MEDS: Acetylcysteine 20% Inhal Soln (4ml) IH SCH ×4 (01:35→21:13)
[2018-06-07] MEDS: Vancomycin 1gm in NS 250ml 1 GM/250 ML BAG IVPB SCH ×2 (05:07→17:55)
[2018-06-07] MEDS: Meropenem IV 1 gm in NS 1 GM/50 ML BAG IVPB SCH ×3 (05:07→21:47)
[2018-06-07] MEDS: Pantoprazole 40 mg EC Tab PO SCH (05:08)
[2018-06-07 06:49] LABS: ALB/GLOB RATIO 0.9 (1.1-1.8); ALBUMIN 2.8 g/dL (3.0-4.8); ALT/SGPT 32 U/L (7-56); AST/SGOT 25 U/L (17-59); BLOOD UREA NITROGEN 23 mg/dL (7-21); CALCIUM 9.7 mg/dL (8.4-10.5); GFR NON-AFRICAN AMERICAN > 60; HEMOGLOBIN 10.3 g/dL (14.0-18.0); MEAN CELL VOLUME 92.9 fl (80.0-105.0); MEAN CORPUSCULAR HEMOGLOBIN 29.1 pg (25.0-35.0); MEAN CORPUSCULAR HGB CONC 31.3 g/dl (31.0-37.0); MEAN PLATELET VOLUME 10.2 fl (7.0-11.0); RBC 3.54 10^6/uL (3.5-6.1); RED CELL DISTRIBUTION WIDTH 17.2 % (11.5-14.5); WHITE BLOOD COUNT 8.9 10^3/uL (4.5-11.0)
[2018-06-07] MEDS: Insulin Lispro (HUMAlog) HIGH Coverage SC SCH ×2 (07:23→22:44)
--- NOTE | 2018-06-07 11:44 | PN ---
DATE: 06/07/2018 SUBJECTIVE: The patient is in bed in no acute distress, nontoxic. PHYSICAL EXAMINATION: VITAL SIGNS: On exam, temperature of 98, blood pressure is 120/70 and respiratory rate of 16. HEENT: Unremarkable. NECK: Supple. LUNGS: Have decreased breath sounds. HEART: Normal S1, S2. ABDOMEN: Soft. LABORATORY EXAMINATION: Reveals a white count of 8.9 and hemoglobin of 10. Chemistries are noted. Microbiology is noted. ASSESSMENT AND PLAN: This is a 82-year-old with a community-acquired pneumonia and left nondisplaced fracture of the neck of the humerus and new infiltrate with a healthcare-associated pneumonia on vancomycin, meropenem day #3 followup and repeat cultures and we will make further recommendations. . Mt Singleton MD
--- NOTE | 2018-06-07 12:59 | PN ---
DATE: 06/07/2018 SUBJECTIVE: The patient has no complaints of any chest pain. No shortness of breath. He does have a cough and productive. He says he is feeling better than yesterday. PHYSICAL EXAMINATION VITAL SIGNS: Temperature is 98, pulse is 76, blood pressure is 121/60 and respirations 18. GENERAL: The patient is lying in bed, flat, comfortable. HEENT: No oral lesion. Anicteric sclerae. Moist mucosa. NECK: No JVD, adenopathy, or thyromegaly. CARDIOVASCULAR: S1 and S2, regular. No murmurs, rubs, or gallops. LUNGS: Clear to auscultation bilaterally. No wheeze, rales, or rhonchi. ABDOMEN: Bowel sounds are positive, soft, nontender and nondistended. EXTREMITIES: No cyanosis, clubbing or edema. LABORATORY DATA: White count of 8.9 and hemoglobin 10.3. Creatinine is 1.1. ASSESSMENT: 1. Hospital acquired-pneumonia. 2. Comminuted displaced fracture of the left humerus. 3. Diabetes type 2. 4. Hypertension. 5. Dyslipidemia. 6. Squamous cell carcinoma. 7. Community acquired pneumonia, resolved. PLAN: The patient is getting IV antibiotics. He is on Colace for constipation. He is receiving glimepiride for diabetes type 2. The patient is on Lipitor for dyslipidemia. He is on Norvasc for hypertension. He is on Xopenex. He is on heart healthy diet. He should probably go to subacute rehab as he is not well enough to go home at this point, he will think about it. Brian Calzada MD
[2018-06-07 16:38] VITALS: TEMP 97.6; O2SAT 97
[2018-06-08] MEDS: Levalbuterol 1.25 MG/3 ML Inhal Soln UD IH SCH ×3 (01:35→13:12)
[2018-06-08] MEDS: Acetylcysteine 20% Inhal Soln (4ml) IH SCH ×3 (01:35→13:12)
[2018-06-08] MEDS: Meropenem IV 1 gm in NS 1 GM/50 ML BAG IVPB SCH ×2 (05:21→14:30)
[2018-06-08] MEDS: Vancomycin 1gm in NS 250ml 1 GM/250 ML BAG IVPB SCH (05:21)
[2018-06-08] MEDS: Pantoprazole 40 mg EC Tab PO SCH (05:22)
--- NOTE | 2018-06-08 06:50 | CP.PCM.PN ---
Objective - Vital Signs/Intake and Output Vital Signs (last 24 hours): Temp Pulse Resp BP Pulse Ox 97.6 F 52 L 18 115/66 97 06/07/18 16:00 06/07/18 16:00 06/07/18 16:00 06/07/18 16:00 06/07/18 16:00 - Medications Medications: Current Medications Acetylcysteine (Acetylcysteine 20%) 4 ml IH [id number] AISHA Last Admin: 06/08/18 01:35 Dose: 4 ml Amlodipine Besylate (Norvasc) 5 mg PO BID AISHA; Protocol Last Admin: 06/07/18 11:06 Dose: 5 mg Atorvastatin Calcium (Lipitor) 10 mg PO HS AISHA; Protocol Last Admin: 06/07/18 21:47 Dose: 10 mg Docusate Sodium (Colace) 100 mg PO DAILY AISHA; Protocol Last Admin: 06/07/18 11:06 Dose: 100 mg Glimepiride (Amaryl) 2 mg PO 0800 AISHA Last Admin: 06/07/18 11:06 Dose: 2 mg Meropenem (Merrem Iv 1 Gm Premix) 1 gm in 50 mls @ 100 mls/hr IVPB Q8 AISHA; Protocol Last Admin: 06/08/18 05:21 Dose: 100 mls/hr Vancomycin HCl (Vancomycin 1gm) 1 gm in 250 mls @ 167 mls/hr IVPB 0600,1800 AISHA; Protocol Stop: 06/09/18 07:30 Last Admin: 06/08/18 05:21 Dose: 167 mls/hr Insulin Human Lispro (Humalog High) 0 units SC ACHS AISHA; Protocol Last Admin: 06/07/18 22:44 Dose: Not Given Levalbuterol HCl (Xopenex) 1.25 mg IH [id number] AISHA Last Admin: 06/08/18 01:35 Dose: 1.25 mg Metformin HCl (Glucophage) 500 mg PO 0800,1800 AISHA Last Admin: 06/07/18 11:06 Dose: 500 mg Pantoprazole Sodium (Protonix Ec Tab) 40 mg PO 0600 AISHA; Protocol Last Admin: 06/08/18 05:22 Dose: 40 mg - Labs Labs: 06/07/18 05:00 06/07/18 05:00
[2018-06-08] MEDS: Insulin Lispro (HUMAlog) HIGH Coverage SC SCH ×2 (07:28→12:07)
--- NOTE | 2018-06-08 08:39 | PN ---
DATE: 06/06/2018 SUBJECTIVE: The patient is awake and alert, feeling slightly better. He states that he is able to get around a little better and is somewhat improved. He does, however, look very weak and frail. PHYSICAL EXAMINATION: VITAL SIGNS: Remain stable. He is afebrile. His respiratory rate is 18, blood pressure 140/70, O2 saturation is 94% on nasal cannula. HEENT: Normocephalic, atraumatic. NECK: There is no jugular venous distention. No bruit. No mass. CARDIOVASCULAR: Regular rhythm. S1, S2. There is a soft systolic ejection murmur. There is no gallop. LUNGS: Bilateral rales and rhonchi throughout both lung montalvo. No wheezing is appreciated. ABDOMEN: Soft. Bowel sounds normoactive without mass, guarding, rebound or organomegaly. EXTREMITIES: No clubbing, cyanosis or edema. There is no Homans sign. SKIN: No rash or excoriation. NEUROLOGIC: No focal findings. CLINICAL IMPRESSION: 1. Pneumonia - left lower lobe. 2. Acute bronchitis. 3. Fracture of the left humerus. 4. Anemia. 5. Diabetes mellitus. PLAN: Continue vigorous bronchodilator therapy. Physical therapy. Followup x-ray to complete resolution. Continue antibiotics as per Infectious Disease. Close followup is essential. Francisco Stoner MD [facility]
--- NOTE | 2018-06-08 08:48 | PN ---
DATE: 06/06/2018 SUBJECTIVE: The patient is in bed, in no acute distress, nontoxic. PHYSICAL EXAMINATION: VITAL SIGNS: Temperature is 98, blood pressure is 120/50, respiratory rate of 18. HEENT: Unremarkable. NECK: Supple. LUNGS: Decreased breath sounds. HEART: Normal S1 and S2. ABDOMEN: Soft. LABORATORY EXAMINATION: Reveals a white count of 11,000. Chemistries are noted. Microbiology is noted. ASSESSMENT AND PLAN: An 82-year-old male with community-acquired pneumonia, atrial fibrillation, diabetes, dyslipidemia. The patient is now on vancomycin and meropenem day #2 because of progression of pneumonia. We will follow with you. Check on the sputum cultures. We will also order a procalcitonin. Mt Singleton MD
--- NOTE | 2018-06-08 08:57 | PN ---
DATE: 06/07/2018 UPDATED REPORT SUBJECTIVE: The patient has a fracture of the left proximal humerus at the surgical neck with some comminution. Compared to the x-ray done on 05/27/2017, it is basically the same position and starting to heal, but he is still not able to bear weight on that shoulder because it could displace it. Otherwise, he is doing well. I will follow him in the office after discharge. I gave him my name and address and see him in about 10 days. FINAL DIAGNOSIS: Proximal left humerus fracture compatible for conservative therapy and it is allowed to heal for another 5 weeks. Jose Siddiqui DO [facility]
[2018-06-08 10:06] VITALS: BP 122/66; PULSE 73
--- NOTE | 2018-06-08 11:17 | PN ---
DATE: 06/08/2018 SUBJECTIVE: The patient appears comfortable this morning. He is not short of breath at rest. PHYSICAL EXAMINATION: VITAL SIGNS (LAST NOTED IN THE COMPUTER): Temperature is 97.6, pulse 52, respirations 18, blood pressure 115/66. Oxygen saturation on nasal cannula is 97%. HEENT: Normocephalic, atraumatic. No JVD. CARDIOVASCULAR: Systolic ejection murmur at the lower left sternal border. No S3 gallop. LUNGS: Crackles noted at the left base. Minimal bilateral rhonchi. No wheezing. EXTREMITIES: No clubbing, cyanosis or edema. Calves are nontender to palpation. GASTROINTESTINAL: Abdomen is soft, nontender and nondistended. Bowel sounds are positive. SKIN: No acute rash. NEUROLOGIC: Exam limited at the present time. IMPRESSION: 1. Left lower lobe pneumonia. 2. Acute bronchitis. 3. Left humerus fracture. 4. Mild anemia. 5. Diabetes mellitus. PLAN: The patient appears comfortable this morning. He is not short of breath at rest. He does state to feeling much better overall. On physical exam, there is less bronchospasm noted. In addition, the oxygen saturation is now 97% on nasal cannula. I will continue the current nebulizer treatments for now. I will also add chest percussion therapy, and have discussed this order with the respiratory therapist. I would continue with the antibiotic coverage as per Infectious Disease. Input by Dr. Singleton is noted. The leukocytosis has now resolved. Clinical status of the patient appears certainly improved - compared to the initial presentation. However, given the above, along with the patient's advanced age, the future status/prognosis for this patient does remain guarded. I will discuss the above with the attending physician. Jorge Haddad MD [facility]
--- NOTE | 2018-06-08 12:55 | DS ---
HOSPITAL COURSE: The patient has no complaints of chest pain or shortness of breath, no headaches. He has developed community-acquired pneumonia. The patient was placed on IV antibiotics. He had improvement of his symptoms. He still having difficulty in ambulating. He has a comminuted displaced fracture of the left humerus. He is being followed by Orthopedics. No surgical intervention was recommended at this point. PHYSICAL EXAMINATION: VITAL SIGNS: Temperature is 97.6, pulse of 52, blood pressure 115/66, respirations are 18, O2 saturation 97%. GENERAL: The patient is lying in bed, flat, comfortable. HEENT: No oral lesion. Anicteric sclerae. Moist mucosa. NECK: No JVD, adenopathy, or thyromegaly. CARDIOVASCULAR: S1 and S2, regular. No murmurs, rubs, or gallops. LUNGS: Clear to auscultation bilaterally. No wheeze, rales, or rhonchi. ABDOMEN: Bowel sounds are positive, soft, nontender and nondistended. EXTREMITIES: no cyanosis, clubbing or edema. ASSESSMENT: 1. Hospital-acquired pneumonia. 2. Comminuted displaced fracture of the left humerus. 3. Diabetes type 2. 4. Hypertension. 5. Dyslipidemia. 6. History of squamous cell carcinoma of the skin. 7. Community-acquired pneumonia, resolved. PLAN: The patient is currently comfortable. He is on Amaryl for his diabetes. The patient is on metformin for his diabetes. The patient continues with Lipitor for dyslipidemia. The patient is on meropenem for antibiotics and vancomycin. He is going to be discharged to subacute facility. CONDITION: Stable. ACTIVITIES: Increase as tolerated. Followup with Dr. Foster in 1-2 weeks. Followup with Orthopedics in 1-2 weeks. Brian Calzada MD
--- NOTE | 2018-06-08 13:34 | CP.PCM.PN ---
<Boo Kat - Last Filed: 06/08/18 13:34> Subjective - Date & Time of Evaluation Date of Evaluation: 06/08/18 Time of Evaluation: 07:15 - Subjective Subjective: ID Progress Note Patient seen and examined. Patient admits to productive cough. Denies chest pain, shortness of breath, nausea, vomiting, diarrhea, fever, chills. Objective - Vital Signs/Intake and Output Vital Signs (last 24 hours): Temp Pulse Resp BP Pulse Ox 97.6 F 73 18 122/66 97 06/07/18 16:00 06/08/18 10:03 06/07/18 16:00 06/08/18 10:03 06/07/18 16:00 - Medications Medications: Current Medications Acetylcysteine (Acetylcysteine 20%) 4 ml IH [id number] AISHA Last Admin: 06/08/18 13:12 Dose: 4 ml Amlodipine Besylate (Norvasc) 5 mg PO BID IASHA; Protocol Last Admin: 06/08/18 10:03 Dose: 5 mg Atorvastatin Calcium (Lipitor) 10 mg PO HS AISHA; Protocol Last Admin: 06/07/18 21:47 Dose: 10 mg Docusate Sodium (Colace) 100 mg PO DAILY AISHA; Protocol Last Admin: 06/08/18 10:03 Dose: Not Given Glimepiride (Amaryl) 2 mg PO 0800 AISHA Last Admin: 06/08/18 08:03 Dose: 2 mg Meropenem (Merrem Iv 1 Gm Premix) 1 gm in 50 mls @ 100 mls/hr IVPB Q8 AISHA; Protocol Last Admin: 06/08/18 05:21 Dose: 100 mls/hr Vancomycin HCl (Vancomycin 1gm) 1 gm in 250 mls @ 167 mls/hr IVPB 0600,1800 AISHA; Protocol Stop: 06/09/18 07:30 Last Admin: 06/08/18 05:21 Dose: 167 mls/hr Insulin Human Lispro (Humalog High) 0 units SC ACHS AISHA; Protocol Last Admin: 06/08/18 12:07 Dose: 4 units Levalbuterol HCl (Xopenex) 1.25 mg IH [id number] AISHA Last Admin: 06/08/18 13:12 Dose: 1.25 mg Metformin HCl (Glucophage) 500 mg PO 0800,1800 AISHA Last Admin: 06/08/18 10:02 Dose: 500 mg Pantoprazole Sodium (Protonix Ec Tab) 40 mg PO 0600 [facility]; Protocol Last Admin: 06/08/18 05:22 Dose: 40 mg - Labs Labs: 06/07/18 05:00 06/07/18 05:00 - Constitutional Appears: Non-toxic, No Acute Distress - Head Exam Head Exam: ATRAUMATIC, NORMAL INSPECTION, NORMOCEPHALIC - Respiratory Exam Respiratory Exam: Rhonchi (Improving), NORMAL BREATHING PATTERN - Cardiovascular Exam Cardiovascular Exam: RRR, +S1, +S2 - GI/Abdominal Exam GI & Abdominal Exam: Soft, Normal Bowel Sounds. absent: Tenderness - Extremities Exam Additional comments: Left arm in sling - Neurological Exam Neurological Exam: Alert, Awake, Oriented x3 - Psychiatric Exam Psychiatric exam: Normal Affect, Normal Mood - Skin Skin Exam: Intact, Normal Color, Warm Assessment and Plan - Assessment and Plan (Free Text) Plan: Hospital acquired pneumonia S/P Community acquired pneumonia Left nondisplaced fracture of the neck of the humerus Hx of A-fib Hx of DM2 Hx of Dyslipidemia Hx of Diverticulosis Hx of gastric duodenal ulcer Hx of Squamous cell carcinoma of the scalp Plan: Continue Vancomycin and Merrem, day 4 Repeat Blood Negative Sputum cultures demonstrate yeast MRSA screen negative [place], PGY-3 <Ac Wilkins - Last Filed: 06/08/18 18:00> Objective - Vital Signs/Intake and Output Vital Signs (last 24 hours): Temp Pulse Resp BP Pulse Ox 97.6 F 73 18 122/66 97 06/07/18 16:00 06/08/18 10:03 06/07/18 16:00 06/08/18 10:03 06/07/18 16:00 - Labs Labs: 06/07/18 05:00 06/07/18 05:00 Assessment and Plan - Assessment and Plan (Free Text) Plan: Infectious diseases Attending Physician Attestation Patient seen and examined, discussed with medical field representative. I have reviewed the patient's history of present illness, past medical, social, personal and family histories, pertinent physical exam findings, course so far in this hospital admission, pertinent laboratory and imaging results. I agree with the above fin dings, assessment and plan. In addition, continue Vancomycin and Merrem for HAP day 4 of up to 7 days of therapy. Overall prognosis is poor.
== END 2018-06-08 16:05 | DRG 559 ==
LOC: TRCU 15:40
PROVIDERS: ADMIT Internal Medicine Nephrology; ATTEND Internal Medicine Nephrology
PROC: F07Z9FZ Gait Training/Functional Ambulation Treatment using Assistive, Adaptive, Supportive or Protective Equipment (ICD-10-PCS; principal; 2018-05-31)
PROC: F08Z4FZ Home Management Treatment using Assistive, Adaptive, Supportive or Protective Equipment (ICD-10-PCS; 2018-05-31)
PROC: 3E0F7GC Introduction of Other Therapeutic Substance into Respiratory Tract, Via Natural or Artificial Opening (ICD-10-PCS; 2018-06-03)
DX: S42.215D Unspecified nondisplaced fracture of surgical neck of left humerus, subsequent encounter for fracture with routine healing (principal); J18.1 Lobar pneumonia, unspecified organism; K57.92 Diverticulitis of intestine, part unspecified, without perforation or abscess without bleeding; R26.2 Difficulty in walking, not elsewhere classified; Y95 Nosocomial condition; Z79.2 Long term (current) use of antibiotics; E11.9 Type 2 diabetes mellitus without complications; J20.9 Acute bronchitis, unspecified; I10 Essential (primary) hypertension; I48.91 Unspecified atrial fibrillation; E78.5 Hyperlipidemia, unspecified; D64.9 Anemia, unspecified; K59.00 Constipation, unspecified; W01.0XXD Fall on same level from slipping, tripping and stumbling without subsequent striking against object, subsequent encounter; Z85.828 Personal history of other malignant neoplasm of skin; Z87.891 Personal history of nicotine dependence

== ENCOUNTER 2018-07-09 03:26 | Emergency (ER) | payer MEDICARE | END 2018-07-09 05:59 | LOC: ED 03:26 ==